=== PATIENT | male | born 1955 | race Caucasian/White ===

== ENCOUNTER 2016-07-15 07:23 | Inpatient (IN) | payer OTHER ==
[~2016-07-15] VITALS: Ht 182.9 cm; Wt 70.2 kg
[~2016-07-15 07:23] MED LIST: ASPI-621 PO; ATOR20TA9 PO; AZIT250T PO; CEFD300C2 PO; FOLI-17 PO; GUAI600T22 PO; LISI5TAB7 PO; METO-93 PO; MULT-750 PO; THIA100T6 PO
[2016-07-15] MEDS ORDERED: SODIUM CHLORIDE 0.9% 1,000 ML IV ONE (07:32)
[2016-07-15] MEDS ORDERED: DILTIAZEM 125 MG in DEXTROSE 5% 100 ML IV SCH (07:32)
[2016-07-15] MEDS ORDERED: DILTIAZEM 5 MG/ML, 5ML ONE (07:45)
[2016-07-15] MEDS ORDERED: DILTIAZEM 5 MG/ML, 5ML IV ONE (08:00)
[2016-07-15] MEDS ORDERED: SODIUM CHLORIDE FLUSH 10ML SYR IVF ONE (08:00)
[2016-07-15 08:08] LABS: HEMOGLOBIN 14.4 g/dL (13.7-18.0)
[2016-07-15 08:20] LABS: BLOOD UREA NITROGEN 11 mg/dL (7-18)
[2016-07-15] MEDS ORDERED: AMIODARONE 900 MG in DEXTROSE 5% 500 ML IV PRN (09:00)
[2016-07-15] MEDS ORDERED: AMIODARONE 150 MG in DEXTROSE 5% 100 ML IV ONE (09:00)
[2016-07-15] MEDS ORDERED: ONDANSETRON 2MG/ML, 2ML IVP PRN (09:30)
[2016-07-15] MEDS: FAMOTIDINE 20 MG TABLET PO SCH ×2 (09:30→20:55)
[2016-07-15] MEDS ORDERED: FILTER 0.22 MICRON IV ONE (09:30)
[2016-07-15] MEDS ORDERED: MORPHINE SULFATE 4 MG/ML, 1ML IVPush PRN (09:30)
[2016-07-15] MEDS: FOLIC ACID 1 MG TABLET PO SCH (09:30)
[2016-07-15] MEDS ORDERED: DOCUSATE 100 MG CAPSULE PO PRN (09:30)
[2016-07-15] MEDS: MULTIVITAMIN 1 TABLET PO SCH (09:30)
[2016-07-15] MEDS ORDERED: LORazepam 2 MG/ML, 1ML IVPush PRN (09:30)
[2016-07-15] MEDS: ASPIRIN 81 MG TABLET EC PO SCH (09:30)
[2016-07-15] MEDS: SODIUM CHLORIDE FLUSH 10ML SYR IVF SCH ×2 (09:30→20:53)
[2016-07-15] MEDS ORDERED: SODIUM CHLORIDE FLUSH 10ML SYR IVF PRN (09:30)
[2016-07-15] MEDS: THIAMINE 100MG TABLET PO SCH (09:30)
[2016-07-15 09:58] LABS: DAU SCREEN DISCLAIMER
[2016-07-15 10:08] LABS: IS PT STATUS REG ER OR PRE ER? YES
[2016-07-15] MEDS ORDERED: OMNIPAQUE 350 MG/ML, 100ML BOTTLE ONE (10:47)
[2016-07-15 12:09] VITALS: BP 149/99
[2016-07-15 14:34] VITALS: BP 147/99
[2016-07-15] MEDS: METOPROLOL SUCCINATE 50 MG TAB.ER.24H PO SCH (15:11)
[2016-07-15] MEDS: LISINOPRIL 5 MG TABLET PO SCH ×2 (15:11→20:54)
[2016-07-15] MEDS: HYDROcodone/APAP 5/325 TABLET PO PRN ×2 (15:13→20:59)
[2016-07-15 15:56] LABS: IS PT STATUS REG ER OR PRE ER? NO
[2016-07-15 16:38] VITALS: BP 130/83
[2016-07-15 20:50] VITALS: BP 122/87
[2016-07-15] MEDS: ATORVASTATIN 20 MG TABLET PO SCH (20:53)
[2016-07-15] MEDS: ENOXAPARIN 40 MG/0.4 ML SQ SCH (20:54)
[2016-07-15] MEDS ORDERED: FILTER 0.22 MICRON IV PRN (23:45)
[2016-07-16] MEDS ORDERED: AMIODARONE 900 MG in DEXTROSE 5% 482 ML IV PRN
[2016-07-16 02:35] VITALS: BP 113/83
[2016-07-16] MEDS: METOPROLOL SUCCINATE 50 MG TAB.ER.24H PO SCH (05:14)
[2016-07-16] MEDS: HYDROcodone/APAP 5/325 TABLET PO PRN ×4 (05:15→23:14)
[2016-07-16 05:31] LABS: HEMOGLOBIN 14.3 g/dL (13.7-18.0)
[2016-07-16 05:40] LABS: BLOOD UREA NITROGEN 13 mg/dL (7-18)
[2016-07-16 07:20] VITALS: BP 125/65
[2016-07-16] MEDS: LISINOPRIL 5 MG TABLET PO SCH ×2 (09:25→23:13)
[2016-07-16] MEDS: ASPIRIN 81 MG TABLET EC PO SCH (09:25)
[2016-07-16] MEDS: FOLIC ACID 1 MG TABLET PO SCH (09:26)
[2016-07-16] MEDS: FAMOTIDINE 20 MG TABLET PO SCH ×2 (09:26→23:13)
[2016-07-16] MEDS: THIAMINE 100MG TABLET PO SCH (09:26)
[2016-07-16] MEDS: MULTIVITAMIN 1 TABLET PO SCH (09:26)
[2016-07-16] MEDS: GUAIFENESIN/DM 200-20MG, 10ML UDC PO PRN (09:27)
[2016-07-16] MEDS: SODIUM CHLORIDE FLUSH 10ML SYR IVF SCH ×2 (09:33→23:13)
[2016-07-16] MEDS ORDERED: LORazepam 2 MG/ML, 1ML IV PRN ×5 (11:00)
[2016-07-16] MEDS ORDERED: LORazepam 1MG TABLET PO PRN ×4 (11:00)
[2016-07-16] MEDS ORDERED: LORazepam 0.5MG TABLET PO PRN (11:00)
[2016-07-16 12:50] VITALS: BP 116/79
[2016-07-16] MEDS: CEFTRIAXONE PMX 1GM/50ML 50 ML IV SCH ×2 (13:17→23:12)
[2016-07-16] MEDS: AMIODARONE 200 MG TABLET PO SCH ×2 (13:18→23:13)
[2016-07-16] MEDS: DOXYCYCLINE 100 MG in DEXTROSE 5% 250 ML IV SCH (13:49)
[2016-07-16 20:00] VITALS: BP 109/64
[2016-07-16] MEDS: ATORVASTATIN 20 MG TABLET PO SCH (23:13)
[2016-07-16] MEDS: ENOXAPARIN 40 MG/0.4 ML SQ SCH (23:14)
[2016-07-17] MEDS: DOXYCYCLINE 100 MG in DEXTROSE 5% 250 ML IV SCH ×2 (00:07→11:08)
[2016-07-17 02:18] VITALS: BP 119/75
[2016-07-17] MEDS: METOPROLOL SUCCINATE 50 MG TAB.ER.24H PO SCH (05:15)
[2016-07-17] MEDS: ASPIRIN 81 MG TABLET EC PO SCH (05:15)
[2016-07-17 06:31] LABS: BLOOD UREA NITROGEN 16 mg/dL (7-18)
[2016-07-17 07:59] VITALS: BP 124/72
[2016-07-17] MEDS: SODIUM CHLORIDE FLUSH 10ML SYR IVF SCH ×2 (09:26→22:53)
[2016-07-17] MEDS: GUAIFENESIN/DM 200-20MG, 10ML UDC PO PRN (09:26)
[2016-07-17] MEDS: AMIODARONE 200 MG TABLET PO SCH ×2 (09:27→22:53)
[2016-07-17] MEDS: FOLIC ACID 1 MG TABLET PO SCH (09:28)
[2016-07-17] MEDS: THIAMINE 100MG TABLET PO SCH (09:28)
[2016-07-17] MEDS: CEFTRIAXONE PMX 1GM/50ML 50 ML IV SCH ×2 (09:28→22:53)
[2016-07-17] MEDS: FAMOTIDINE 20 MG TABLET PO SCH ×2 (09:28→22:53)
[2016-07-17] MEDS: LISINOPRIL 5 MG TABLET PO SCH ×2 (09:28→22:53)
[2016-07-17] MEDS: MULTIVITAMIN 1 TABLET PO SCH (09:28)
[2016-07-17] MEDS ORDERED: MAGNESIUM SULFATE PMX 2GM/50ML 50 ML IV ONE (11:00)
[2016-07-17 14:30] VITALS: BP_SYST 90; BP_SYST 92; BP_DIAS 48; BP_DIAS 50
[2016-07-17] MEDS ORDERED: MORPHINE SULFATE 4 MG/ML, 1ML IVPush PRN (15:30)
[2016-07-17] MEDS ORDERED: HYDROcodone/APAP 5/325 TABLET PO PRN (15:30)
[2016-07-17 21:35] VITALS: BP 104/61
[2016-07-17] MEDS: ATORVASTATIN 20 MG TABLET PO SCH (22:53)
[2016-07-17] MEDS: ENOXAPARIN 40 MG/0.4 ML SQ SCH (22:53)
[2016-07-18] MEDS: DOXYCYCLINE 100 MG in DEXTROSE 5% 250 ML IV SCH ×2 (00:05→11:43)
[2016-07-18 03:42] VITALS: BP 107/63
[2016-07-18] MEDS: ASPIRIN 81 MG TABLET EC PO SCH (05:46)
[2016-07-18 05:50] LABS: BLOOD UREA NITROGEN 13 mg/dL (7-18)
[2016-07-18 06:57] VITALS: BP 95/58
[2016-07-18] MEDS ORDERED: AMIODARONE 200 MG TABLET PO SCH (09:00)
[2016-07-18 09:53] VITALS: BP 103/54
[2016-07-18] MEDS: MULTIVITAMIN 1 TABLET PO SCH (09:54)
[2016-07-18] MEDS: CEFTRIAXONE PMX 1GM/50ML 50 ML IV SCH (09:55)
[2016-07-18] MEDS: LISINOPRIL 5 MG TABLET PO SCH (09:55)
[2016-07-18] MEDS: FOLIC ACID 1 MG TABLET PO SCH (09:55)
[2016-07-18] MEDS: METOPROLOL SUCCINATE 50 MG TAB.ER.24H PO SCH (09:55)
[2016-07-18] MEDS: THIAMINE 100MG TABLET PO SCH (09:55)
[2016-07-18] MEDS: FAMOTIDINE 20 MG TABLET PO SCH (09:55)
[2016-07-18] MEDS: SODIUM CHLORIDE FLUSH 10ML SYR IVF SCH (09:56)
[2016-07-18] MEDS: GUAIFENESIN/DM 200-20MG, 10ML UDC PO PRN (11:43)
[2016-07-18 12:41] VITALS: BP 98/60
[2016-07-18] MEDS ORDERED: DOXY50CA42 PO (13:50)
[2016-07-18] MEDS ORDERED: CEFD300C2 PO (13:50)
[2016-07-18] MEDS ORDERED: METO-93 PO (13:52)
[2016-07-18] MEDS ORDERED: AMIO200T42 PO (13:52)
[2016-07-18] MEDS ORDERED: DOXYCYCLINE 50MG CAPSULE PO SCH (21:00)
[2016-07-18] MEDS ORDERED: CEFDINIR 300 MG CAPSULE PO SCH (21:00)
== END 2016-07-18 17:54 | disposition home or self-care (01) | DRG 291 ==
LOC: ED 08:26 → EDIP 09:03 → 5SO 11:55
PROVIDERS: ADMIT Hospitalist; ATTEND Hospitalist
DX: I11.0 Hypertensive heart disease with heart failure (principal); J18.9 Pneumonia, unspecified organism; D68.69 Other thrombophilia; J44.0 Chronic obstructive pulmonary disease with (acute) lower respiratory infection; I48.92 Unspecified atrial flutter; I50.41 Acute combined systolic (congestive) and diastolic (congestive) heart failure; I42.9 Cardiomyopathy, unspecified; I48.0 Paroxysmal atrial fibrillation; J44.9 Chronic obstructive pulmonary disease, unspecified; R29.6 Repeated falls; R09.02 Hypoxemia; R00.1 Bradycardia, unspecified; E83.42 Hypomagnesemia; I34.0 Nonrheumatic mitral (valve) insufficiency; F10.229 Alcohol dependence with intoxication, unspecified; I95.9 Hypotension, unspecified; F17.210 Nicotine dependence, cigarettes, uncomplicated; I10 Essential (primary) hypertension; I25.2 Old myocardial infarction; Z59.0 Homelessness; Z79.01 Long term (current) use of anticoagulants; Z79.82 Long term (current) use of aspirin; Z79.899 Other long term (current) drug therapy; Z91.19 Patient's noncompliance with other medical treatment and regimen
CPT/HCPCS: 36415; 70450; 71010; 71275; 80048; 80307; 82040; 82140; 83036; 83735; 83880; 84443; 84484; 85025; 85610; 85730; 93005; 93306; 96365; 96375; J0696; J1650; J2405; J7060; Q9967; J0282; J3475; J7030

== ENCOUNTER 2016-11-24 23:26 | Emergency (ER) | payer OTHER ==
[~2016-11-24 23:26] MED LIST changes: +AMIO200T42 PO; -CEFD300C2 PO; +CEFD300C37 PO; +DOXY50CA42 PO
== END 2016-11-25 00:16 | disposition left against medical advice (07) ==
LOC: ED 11-25 00:01
DX: Z53.21 Procedure and treatment not carried out due to patient leaving prior to being seen by health care provider (principal)

== ENCOUNTER 2016-12-30 06:37 | Inpatient (IN) | payer OTHER ==
[2016-12-30] VITALS (24 sets, daily range): BP systolic 99–145; BP diastolic 51–96
[~2016-12-30] VITALS: Ht 175.3 cm; Wt 63.4 kg
[~2016-12-30 06:37] MED LIST changes: -GUAI600T22 PO; +GUAI600T31 PO
[2016-12-30] MEDS ORDERED: SODIUM CHLORIDE 0.9% 1,000 ML IV ONE (06:39)
[2016-12-30] MEDS ORDERED: DOPAMINE/D5W PMX 250 ML ONE (06:46)
[2016-12-30] MEDS ORDERED: PIPERACILLIN/TAZO/PMX 3.375GM 50 ML IVPB ONE (07:00)
[2016-12-30] MEDS ORDERED: MORPHINE SULFATE 4 MG/ML, 1ML IVPush PRN (07:00)
[2016-12-30] MEDS ORDERED: PLEASE ENTER ALLERGIES MC SCH ×2 (07:00)
[2016-12-30] MEDS ORDERED: ONDANSETRON 2MG/ML, 2ML IVPush ONE (07:00)
[2016-12-30] MEDS ORDERED: SODIUM CHLORIDE 0.9% 1,000ML IVBOLUS ONE (07:00)
[2016-12-30] MEDS ORDERED: DOPAMINE/D5W PMX 250 ML IV SCH (07:01)
[2016-12-30 07:17] LABS: WHITE BLOOD COUNT 12.3 x10^3/uL (3.4-10)
[2016-12-30 07:18] LABS: HEMATOCRIT 20.1 % (39.2-51.8); HEMOGLOBIN 6.2 g/dL (13.7-18.0)
[2016-12-30 07:26] LABS: ASPARTATE AMINO TRANSFERASE 28 U/L (15-37); BLOOD UREA NITROGEN 28 mg/dL (7-18)
[2016-12-30] MEDS ORDERED: PHYTONADIONE 10 MG/ML, 1ML IM ONE (08:00)
[2016-12-30] MEDS ORDERED: PHYTONADIONE 10 MG/ML, 1ML ONE (08:07)
[2016-12-30] MEDS ORDERED: PIPERACILLIN/TAZO/PMX 3.375GM 50 ML ONE (08:32)
[2016-12-30] MEDS ORDERED: DOPAMINE/D5W PMX 250 ML IV PRN (09:30)
[2016-12-30] MEDS ORDERED: POLYETHYLENE GLYCOL 17 GM PACKET PO PRN (09:30)
[2016-12-30] MEDS ORDERED: ACETAMINOPHEN 325 MG TABLET PO PRN ×2 (09:30→21:00)
[2016-12-30 09:54] LABS: IS PT STATUS REG ER OR PRE ER? YES
[2016-12-30] MEDS ORDERED: PIPERACILLIN/TAZO/PMX 3.375GM 50 ML IV SCH (10:00)
[2016-12-30] MEDS: OXYcodone IR 5MG TABLET PO PRN ×2 (11:30→17:42)
[2016-12-30] MEDS ORDERED: ALBUTEROL/IPRATROPIUM 2.5MG/0.5MG, 3 ML NPPB PRN (14:00)
[2016-12-30 15:20] LABS: IS PT STATUS REG ER OR PRE ER? NO
[2016-12-30] MEDS: NICOTINE 14MG/24 HR PATCH.TD24 TD SCH (17:46)
[2016-12-30] MEDS: ONDANSETRON 2MG/ML, 2ML IVPush PRN (19:08)
[2016-12-30] MEDS ORDERED: DOCUSATE 100 MG CAPSULE PO PRN (21:00)
[2016-12-30] MEDS ORDERED: BISACODYL 10 MG SUPP PR PRN (21:00)
[2016-12-30] MEDS ORDERED: PROMETHAZINE 12.5 MG SUPP PR PRN (21:00)
[2016-12-30] MEDS ORDERED: LORazepam 2 MG/ML, 1ML IV PRN ×4 (21:00)
[2016-12-30] MEDS ORDERED: DIAZEPAM 5 MG/ML, 2ML IV PRN (21:00)
[2016-12-30] MEDS ORDERED: LORazepam 0.5MG TABLET PO PRN (21:00)
[2016-12-30] MEDS ORDERED: LORazepam 1MG TABLET PO PRN ×4 (21:00)
[2016-12-30] MEDS ORDERED: FOLIC ACID 5 MG/ML IM ONE ×2 (21:00→21:30)
[2016-12-30] MEDS ORDERED: THIAMINE 200 MG in DEXTROSE 5% 50 ML IVPB ONE (21:00)
[2016-12-30] MEDS ORDERED: DIPHENHYDRAMINE 50 MG CAPSULE PO PRN (21:00)
[2016-12-30] MEDS ORDERED: CHLORDIAZEPOXIDE 25 MG CAPSULE PO PRN (21:00)
[2016-12-30] MEDS ORDERED: CHLORDIAZEPOXIDE 10 MG CAPSULE PO PRN (21:00)
[2016-12-30] MEDS: MORPHINE SULFATE 4 MG/ML, 1ML IVPush PRN (21:10)
[2016-12-30] MEDS: LORazepam 2 MG/ML, 1ML IV PRN (21:11)
[2016-12-30] MEDS: D5%-0.45% NACL 1,000 ML IV SCH (21:12)
[2016-12-30] MEDS: BACLOFEN 10 MG TABLET PO SCH (22:26)
[2016-12-30] MEDS: FAMOTIDINE 20 MG/2 ML IVPush SCH (22:27)
[2016-12-30] MEDS: MAGNESIUM CHLORIDE 64 MG TABLET.DR PO SCH (22:31)
[2016-12-31 00:15] VITALS: BP 97/65
[2016-12-31 00:28] VITALS: BP 97/51
[2016-12-31] MEDS: MORPHINE SULFATE 4 MG/ML, 1ML IVPush PRN (00:33)
[2016-12-31] MEDS: LORazepam 2 MG/ML, 1ML IV PRN ×3 (00:34→07:25)
[2016-12-31 01:00] VITALS: BP 94/50
[2016-12-31 02:33] VITALS: BP 91/75
[2016-12-31 03:03] LABS: HEMATOCRIT 27.7 % (39.2-51.8); HEMOGLOBIN 8.9 g/dL (13.7-18.0); WHITE BLOOD COUNT 17.3 x10^3/uL (3.4-10)
[2016-12-31 03:11] LABS: ASPARTATE AMINO TRANSFERASE 51 U/L (15-37); BLOOD UREA NITROGEN 31 mg/dL (7-18)
[2016-12-31 03:17] LABS: DIFF TOTAL CELLS COUNTED 100 CELL DIFF
[2016-12-31 03:19] LABS: VERIFY COUNTS? YES
[2016-12-31 03:20] LABS: ANISOCYTOSIS 1+
[2016-12-31] MEDS: D5%-0.45% NACL 1,000 ML IV SCH ×3 (03:47→21:16)
[2016-12-31 06:40] VITALS: BP 90/51
[2016-12-31] MEDS ORDERED: SODIUM CHLORIDE 0.9% 1,000ML IV ONE (08:30)
[2016-12-31] MEDS: MULTIVITAMINS/MINERALS TABLET PO SCH (10:19)
[2016-12-31] MEDS: LEVOTHYROXINE 100 MCG INJ IVPush SCH (10:19)
[2016-12-31] MEDS: SENNA/DOCUSATE TABLET PO SCH (10:19)
[2016-12-31] MEDS: BACLOFEN 10 MG TABLET PO SCH ×2 (10:19→21:15)
[2016-12-31] MEDS: NICOTINE 14MG/24 HR PATCH.TD24 TD SCH (10:20)
[2016-12-31] MEDS: MAGNESIUM CHLORIDE 64 MG TABLET.DR PO SCH ×3 (10:20→21:15)
[2016-12-31 11:40] LABS: HEMATOCRIT 24.4 % (39.2-51.8); HEMOGLOBIN 8.2 g/dL (13.7-18.0)
[2016-12-31 18:40] LABS: HEMATOCRIT 20.9 % (39.2-51.8)
[2016-12-31] MEDS: FAMOTIDINE 20 MG/2 ML IVPush SCH (21:15)
[2016-12-31 23:44] LABS: HEMOGLOBIN 5.5 g/dL (13.7-18.0)
[2016-12-31 23:45] LABS: HEMATOCRIT 17.1 % (39.2-51.8)
[2017-01-01] VITALS (8 sets, daily range): BP systolic 97–105; BP diastolic 48–55
[2017-01-01] MEDS: D5%-0.45% NACL 1,000 ML IV SCH ×2 (01:38→11:41)
[2017-01-01] MEDS: MORPHINE SULFATE 4 MG/ML, 1ML IVPush PRN (01:38)
[2017-01-01 05:43] LABS: HEMOGLOBIN 7.6 g/dL (13.7-18.0); WHITE BLOOD COUNT 10.2 x10^3/uL (3.4-10)
[2017-01-01 05:52] LABS: BLOOD UREA NITROGEN 23 mg/dL (7-18)
[2017-01-01 05:57] LABS: ASPARTATE AMINO TRANSFERASE 47 U/L (15-37)
[2017-01-01] MEDS: BACLOFEN 10 MG TABLET PO SCH (09:00)
[2017-01-01] MEDS ORDERED: ZIPRASIDONE 20 MG INJ IM PRN (09:00)
[2017-01-01] MEDS: MAGNESIUM CHLORIDE 64 MG TABLET.DR PO SCH (09:00)
[2017-01-01] MEDS: MULTIVITAMINS/MINERALS TABLET PO SCH (09:00)
[2017-01-01] MEDS: SENNA/DOCUSATE TABLET PO SCH (09:00)
[2017-01-01] MEDS: LEVOTHYROXINE 100 MCG INJ IVPush SCH (09:27)
[2017-01-01 11:48] LABS: HEMATOCRIT 23.6 % (39.2-51.8); HEMOGLOBIN 7.9 g/dL (13.7-18.0)
[2017-01-01] MEDS: NICOTINE 14MG/24 HR PATCH.TD24 TD SCH (13:48)
[2017-01-01] MEDS ORDERED: PHYTONADIONE 10 MG/ML, 1ML SQ SCH (14:30)
[2017-01-01] MEDS: OXYcodone IR 5MG TABLET PO PRN ×2 (16:12→22:04)
[2017-01-01 17:44] LABS: HEMATOCRIT 25.1 % (39.2-51.8); HEMOGLOBIN 8.5 g/dL (13.7-18.0)
[2017-01-01] MEDS ORDERED: D5%-0.45% NACL 1,000 ML IV SCH (21:00)
[2017-01-01] MEDS: FAMOTIDINE 20 MG/2 ML IVPush SCH (21:25)
[2017-01-01] MEDS: TEMAZEPAM 15 MG CAPSULE PO PRN (22:04)
[2017-01-01 23:34] LABS: HEMATOCRIT 26.1 % (39.2-51.8); HEMOGLOBIN 8.9 g/dL (13.7-18.0)
[2017-01-02] MEDS: MORPHINE SULFATE 4 MG/ML, 1ML IVPush PRN (00:41)
[2017-01-02 04:00] VITALS: BP 120/70
[2017-01-02] MEDS: OXYcodone IR 5MG TABLET PO PRN ×2 (04:24→09:16)
[2017-01-02 05:09] LABS: BLOOD UREA NITROGEN 19 mg/dL (7-18)
[2017-01-02] MEDS ORDERED: FUROSEMIDE 20 MG/2 ML IV ONE (05:41)
[2017-01-02 06:00] LABS: HEMATOCRIT 30.1 % (39.2-51.8); HEMOGLOBIN 10.2 g/dL (13.7-18.0); WHITE BLOOD COUNT 11.7 x10^3/uL (3.4-10)
[2017-01-02 06:01] LABS: DIFF TOTAL CELLS COUNTED 100 CELL DIFF
[2017-01-02 06:04] LABS: VERIFY COUNTS? YES
[2017-01-02 06:05] LABS: ANISOCYTOSIS 1+
[2017-01-02 06:06] LABS: LARGE PLATELETS 1+; POLYCHROMASIA 1+
[2017-01-02] MEDS ORDERED: PHARMACOKINETIC MONITORING MC PRN (07:30)
[2017-01-02] MEDS ORDERED: VANCOMYCIN PER PHARMACY MC PRN (07:30)
[2017-01-02] MEDS: AMPICILLIN/SULBACTAM 3 GM in SODIUM CHLORIDE 0.9% 100 ML IV SCH ×4 (07:55→21:04)
[2017-01-02] MEDS: NICOTINE 14MG/24 HR PATCH.TD24 TD SCH (09:57)
[2017-01-02] MEDS: VANCOMYCIN 1,600 MG in SODIUM CHLORIDE 0.9% 250 ML IV SCH (09:58)
[2017-01-02] MEDS: LEVOTHYROXINE 100 MCG INJ IVPush SCH (09:59)
[2017-01-02 13:00] VITALS: BP 130/73
[2017-01-02 18:47] VITALS: BP 114/69
[2017-01-03] MEDS: OXYcodone IR 5MG TABLET PO PRN ×4 (00:13→20:01)
[2017-01-03 00:55] VITALS: BP 117/75
[2017-01-03] MEDS: VANCOMYCIN 1,600 MG in SODIUM CHLORIDE 0.9% 250 ML IV SCH ×2 (02:27→20:01)
[2017-01-03] MEDS: AMPICILLIN/SULBACTAM 3 GM in SODIUM CHLORIDE 0.9% 100 ML IV SCH ×4 (04:03→23:12)
[2017-01-03 05:24] LABS: HEMATOCRIT 26.1 % (39.2-51.8); HEMOGLOBIN 8.9 g/dL (13.7-18.0); WHITE BLOOD COUNT 8.2 x10^3/uL (3.4-10)
[2017-01-03] MEDS: LEVOTHYROXINE 75 MCG TABLET PO SCH (05:49)
[2017-01-03 08:00] VITALS: BP 137/74
[2017-01-03] MEDS: NICOTINE 14MG/24 HR PATCH.TD24 TD SCH (09:08)
[2017-01-03 15:36] VITALS: BP 136/84
[2017-01-03 20:29] VITALS: BP 152/72
[2017-01-04 01:34] VITALS: BP 141/68
[2017-01-04] MEDS: LEVOTHYROXINE 75 MCG TABLET PO SCH (05:01)
[2017-01-04] MEDS: AMPICILLIN/SULBACTAM 3 GM in SODIUM CHLORIDE 0.9% 100 ML IV SCH ×2 (05:01→09:38)
[2017-01-04 09:00] VITALS: BP 151/81
[2017-01-04] MEDS: NICOTINE 14MG/24 HR PATCH.TD24 TD SCH (09:33)
[2017-01-04] MEDS: OXYcodone IR 5MG TABLET PO PRN ×2 (09:38→22:37)
[2017-01-04] MEDS: VANCOMYCIN 1,600 MG in SODIUM CHLORIDE 0.9% 250 ML IV SCH (13:56)
[2017-01-04 15:17] VITALS: BP_SYST 138; BP_SYST 152; BP_DIAS 90; BP_DIAS 96
[2017-01-04] MEDS: METOPROLOL TARTRATE 25 MG TABLET PO SCH (16:37)
[2017-01-04] MEDS: DOXYCYCLINE 100 MG in DEXTROSE 5% 250 ML IV SCH (16:37)
[2017-01-04 18:42] VITALS: BP 154/68
[2017-01-04] MEDS ORDERED: ALBUTEROL/IPRATROPIUM 2.5MG/0.5MG, 3 ML ONE (18:42)
[2017-01-04] MEDS: ALBUTEROL/IPRATROPIUM 2.5MG/0.5MG, 3 ML NPPB PRN (23:11)
[2017-01-05] VITALS: BP 144/70
[2017-01-05] MEDS: DOXYCYCLINE 100 MG in DEXTROSE 5% 250 ML IV SCH ×2 (04:26→16:50)
[2017-01-05] MEDS: METOPROLOL TARTRATE 25 MG TABLET PO SCH ×2 (05:22→16:51)
[2017-01-05] MEDS: LEVOTHYROXINE 75 MCG TABLET PO SCH (05:22)
[2017-01-05] MEDS: ALBUTEROL/IPRATROPIUM 2.5MG/0.5MG, 3 ML NPPB PRN ×3 (05:27→11:35)
[2017-01-05 05:35] LABS: HEMATOCRIT 26.7 % (39.2-51.8); HEMOGLOBIN 9.1 g/dL (13.7-18.0); WHITE BLOOD COUNT 7.6 x10^3/uL (3.4-10)
[2017-01-05 08:45] VITALS: BP 140/83
[2017-01-05] MEDS: NICOTINE 14MG/24 HR PATCH.TD24 TD SCH (09:30)
[2017-01-05] MEDS: OXYcodone IR 5MG TABLET PO PRN ×2 (11:21→22:37)
[2017-01-05] MEDS ORDERED: ALBUTEROL/IPRATROPIUM 2.5MG/0.5MG, 3 ML NPPB PRN (12:00)
[2017-01-05] MEDS: ALBUTEROL/IPRATROPIUM 2.5MG/0.5MG, 3 ML NPPB SCH ×3 (13:35→20:40)
[2017-01-05 14:00] VITALS: BP 136/71
[2017-01-05 20:16] VITALS: BP 155/90
[2017-01-06 03:35] VITALS: BP 141/91
[2017-01-06 05:10] VITALS: BP 144/92
[2017-01-06] MEDS: DOXYCYCLINE 100 MG in DEXTROSE 5% 250 ML IV SCH ×2 (05:11→17:00)
[2017-01-06] MEDS: LEVOTHYROXINE 75 MCG TABLET PO SCH (05:12)
[2017-01-06] MEDS: METOPROLOL TARTRATE 25 MG TABLET PO SCH ×2 (05:16→17:59)
[2017-01-06 05:52] LABS: HEMATOCRIT 32.4 % (39.2-51.8); HEMOGLOBIN 10.9 g/dL (13.7-18.0); WHITE BLOOD COUNT 8.7 x10^3/uL (3.4-10)
[2017-01-06 05:53] LABS: BLOOD UREA NITROGEN 15 mg/dL (7-18)
[2017-01-06 05:56] LABS: ASPARTATE AMINO TRANSFERASE 47 U/L (15-37)
[2017-01-06] MEDS: ALBUTEROL/IPRATROPIUM 2.5MG/0.5MG, 3 ML NPPB SCH ×4 (07:05→20:00)
[2017-01-06] MEDS: NICOTINE 14MG/24 HR PATCH.TD24 TD SCH (08:59)
[2017-01-06] MEDS: OXYcodone IR 5MG TABLET PO PRN ×2 (09:02→13:14)
[2017-01-06 12:58] VITALS: BP 146/95
[2017-01-06] MEDS: ONDANSETRON 2MG/ML, 2ML IVPush PRN (16:52)
[2017-01-06 19:08] VITALS: BP 132/79
[2017-01-07 01:31] VITALS: BP 121/78
[2017-01-07 05:21] VITALS: BP 135/86
[2017-01-07] MEDS: METOPROLOL TARTRATE 25 MG TABLET PO SCH ×2 (05:22→17:20)
[2017-01-07] MEDS: LEVOTHYROXINE 75 MCG TABLET PO SCH (05:22)
[2017-01-07] MEDS: DOXYCYCLINE 100 MG in DEXTROSE 5% 250 ML IV SCH ×2 (05:23→16:20)
[2017-01-07 06:09] LABS: HEMATOCRIT 30.4 % (39.2-51.8); HEMOGLOBIN 10.2 g/dL (13.7-18.0); WHITE BLOOD COUNT 7.1 x10^3/uL (3.4-10)
[2017-01-07 06:13] LABS: BLOOD UREA NITROGEN 13 mg/dL (7-18)
[2017-01-07] MEDS: ALBUTEROL/IPRATROPIUM 2.5MG/0.5MG, 3 ML NPPB SCH ×4 (07:10→19:19)
[2017-01-07 08:45] VITALS: BP 134/75
[2017-01-07] MEDS: NICOTINE 14MG/24 HR PATCH.TD24 TD SCH (10:14)
[2017-01-07 15:20] VITALS: BP 126/70
[2017-01-07 20:20] VITALS: BP 120/70
[2017-01-08 01:30] VITALS: BP 126/69
[2017-01-08] MEDS: DOXYCYCLINE 100 MG in DEXTROSE 5% 250 ML IV SCH ×2 (04:38→16:51)
[2017-01-08 05:31] LABS: HEMATOCRIT 33.8 % (39.2-51.8); HEMOGLOBIN 11.2 g/dL (13.7-18.0); WHITE BLOOD COUNT 7.5 x10^3/uL (3.4-10)
[2017-01-08 05:50] LABS: ASPARTATE AMINO TRANSFERASE 31 U/L (15-37); BLOOD UREA NITROGEN 16 mg/dL (7-18)
[2017-01-08] MEDS: LEVOTHYROXINE 75 MCG TABLET PO SCH (06:20)
[2017-01-08] MEDS: METOPROLOL TARTRATE 25 MG TABLET PO SCH ×2 (06:20→16:51)
[2017-01-08] MEDS: ALBUTEROL/IPRATROPIUM 2.5MG/0.5MG, 3 ML NPPB SCH ×4 (06:52→20:00)
[2017-01-08 07:20] VITALS: BP 118/65
[2017-01-08] MEDS: NICOTINE 14MG/24 HR PATCH.TD24 TD SCH (09:38)
[2017-01-08 13:35] VITALS: BP 129/72
[2017-01-08] MEDS: OXYcodone IR 5MG TABLET PO PRN (20:08)
[2017-01-08 21:37] VITALS: BP 135/57
[2017-01-09 02:22] VITALS: BP 129/76
[2017-01-09] MEDS: DOXYCYCLINE 100 MG in DEXTROSE 5% 250 ML IV SCH ×2 (03:10→16:30)
[2017-01-09] MEDS: LEVOTHYROXINE 75 MCG TABLET PO SCH (04:59)
[2017-01-09] MEDS: METOPROLOL TARTRATE 25 MG TABLET PO SCH ×2 (04:59→17:57)
[2017-01-09 06:02] LABS: HEMATOCRIT 30.5 % (39.2-51.8); HEMOGLOBIN 10.2 g/dL (13.7-18.0); WHITE BLOOD COUNT 7.9 x10^3/uL (3.4-10)
[2017-01-09 06:26] LABS: BLOOD UREA NITROGEN 17 mg/dL (7-18)
[2017-01-09] MEDS: ALBUTEROL/IPRATROPIUM 2.5MG/0.5MG, 3 ML NPPB SCH ×4 (06:50→20:55)
[2017-01-09 07:51] VITALS: BP 130/70
[2017-01-09] MEDS: NICOTINE 14MG/24 HR PATCH.TD24 TD SCH (08:01)
[2017-01-09 12:50] VITALS: BP 127/81
[2017-01-09 20:26] VITALS: BP 102/30
[2017-01-10 03:23] VITALS: BP 132/86
[2017-01-10] MEDS: DOXYCYCLINE 100 MG in DEXTROSE 5% 250 ML IV SCH ×2 (04:23→16:30)
[2017-01-10] MEDS: OXYcodone IR 5MG TABLET PO PRN (04:30)
[2017-01-10] MEDS: LEVOTHYROXINE 75 MCG TABLET PO SCH (04:30)
[2017-01-10] MEDS: METOPROLOL TARTRATE 25 MG TABLET PO SCH ×2 (04:30→20:05)
[2017-01-10 06:04] LABS: HEMATOCRIT 31.2 % (39.2-51.8); HEMOGLOBIN 10.4 g/dL (13.7-18.0)
[2017-01-10 06:21] LABS: ASPARTATE AMINO TRANSFERASE 30 U/L (15-37); BLOOD UREA NITROGEN 18 mg/dL (7-18)
[2017-01-10] MEDS: ALBUTEROL/IPRATROPIUM 2.5MG/0.5MG, 3 ML NPPB SCH ×4 (07:00→19:47)
[2017-01-10 07:06] VITALS: BP 142/90
[2017-01-10] MEDS: NICOTINE 14MG/24 HR PATCH.TD24 TD SCH (10:10)
[2017-01-10 15:51] VITALS: BP 139/69
[2017-01-10 18:45] VITALS: BP 136/85
[2017-01-11 00:27] VITALS: BP 124/70
[2017-01-11] MEDS: OXYcodone IR 5MG TABLET PO PRN ×4 (02:50→20:23)
[2017-01-11] MEDS: METOPROLOL TARTRATE 25 MG TABLET PO SCH ×2 (05:20→16:53)
[2017-01-11] MEDS: LEVOTHYROXINE 75 MCG TABLET PO SCH (05:21)
[2017-01-11] MEDS: DOXYCYCLINE 100 MG in DEXTROSE 5% 250 ML IV SCH ×2 (05:21→16:53)
[2017-01-11 07:50] VITALS: BP 128/71
[2017-01-11] MEDS: ALBUTEROL/IPRATROPIUM 2.5MG/0.5MG, 3 ML NPPB SCH ×4 (08:11→19:33)
[2017-01-11] MEDS: NICOTINE 14MG/24 HR PATCH.TD24 TD SCH (08:44)
[2017-01-11 13:25] VITALS: BP 132/78
[2017-01-11 19:04] VITALS: BP 120/74
[2017-01-12 02:50] VITALS: BP 139/86
[2017-01-12] MEDS: METOPROLOL TARTRATE 25 MG TABLET PO SCH ×2 (05:36→19:09)
[2017-01-12] MEDS: LEVOTHYROXINE 75 MCG TABLET PO SCH (05:37)
[2017-01-12] MEDS: DOXYCYCLINE 100 MG in DEXTROSE 5% 250 ML IV SCH (05:37)
[2017-01-12 05:50] LABS: BLOOD UREA NITROGEN 17 mg/dL (7-18)
[2017-01-12 06:02] LABS: HEMATOCRIT 37.9 % (39.2-51.8); HEMOGLOBIN 12.2 g/dL (13.7-18.0); WHITE BLOOD COUNT 8.1 x10^3/uL (3.4-10)
[2017-01-12 07:10] VITALS: BP 141/86
[2017-01-12] MEDS: ALBUTEROL/IPRATROPIUM 2.5MG/0.5MG, 3 ML NPPB SCH ×3 (09:00→20:08)
[2017-01-12] MEDS: NICOTINE 14MG/24 HR PATCH.TD24 TD SCH (09:20)
[2017-01-12] MEDS: OXYcodone IR 5MG TABLET PO PRN ×2 (09:37→21:05)
[2017-01-12 13:04] VITALS: BP 131/82
[2017-01-12 20:24] VITALS: BP 126/80
[2017-01-13] MEDS: OXYcodone IR 5MG TABLET PO PRN ×3 (01:10→21:49)
[2017-01-13 02:00] VITALS: BP 129/89
[2017-01-13] MEDS: LEVOTHYROXINE 75 MCG TABLET PO SCH (05:53)
[2017-01-13] MEDS: METOPROLOL TARTRATE 25 MG TABLET PO SCH ×2 (05:54→17:33)
[2017-01-13 06:55] VITALS: BP 126/85
[2017-01-13] MEDS: ALBUTEROL/IPRATROPIUM 2.5MG/0.5MG, 3 ML NPPB SCH ×3 (06:57→19:10)
[2017-01-13] MEDS: NICOTINE 14MG/24 HR PATCH.TD24 TD SCH (09:34)
[2017-01-13 13:30] VITALS: BP 147/85
[2017-01-13 19:35] VITALS: BP 108/62
[2017-01-14 03:01] VITALS: BP 124/82
[2017-01-14] MEDS: LEVOTHYROXINE 75 MCG TABLET PO SCH (05:27)
[2017-01-14] MEDS: METOPROLOL TARTRATE 25 MG TABLET PO SCH ×2 (05:27→18:29)
[2017-01-14] MEDS: ALBUTEROL/IPRATROPIUM 2.5MG/0.5MG, 3 ML NPPB SCH ×3 (07:21→20:00)
[2017-01-14 07:53] VITALS: BP 139/88
[2017-01-14] MEDS: NICOTINE 14MG/24 HR PATCH.TD24 TD SCH (09:30)
[2017-01-14] MEDS: OXYcodone IR 5MG TABLET PO PRN ×2 (10:55→21:40)
[2017-01-14 14:30] VITALS: BP 147/77
[2017-01-14 19:33] VITALS: BP 141/73
[2017-01-14] MEDS: TEMAZEPAM 15 MG CAPSULE PO PRN (21:40)
[2017-01-15] MEDS: NICOTINE 14MG/24 HR PATCH.TD24 TD SCH (03:08)
[2017-01-15 03:53] VITALS: BP 138/77
[2017-01-15 05:37] LABS: HEMATOCRIT 31.6 % (39.2-51.8); HEMOGLOBIN 10.5 g/dL (13.7-18.0); WHITE BLOOD COUNT 5.8 x10^3/uL (3.4-10)
[2017-01-15 05:55] LABS: BLOOD UREA NITROGEN 17 mg/dL (7-18)
[2017-01-15] MEDS: LEVOTHYROXINE 75 MCG TABLET PO SCH (06:10)
[2017-01-15] MEDS: METOPROLOL TARTRATE 25 MG TABLET PO SCH ×2 (06:10→17:14)
[2017-01-15] MEDS: ALBUTEROL/IPRATROPIUM 2.5MG/0.5MG, 3 ML NPPB SCH ×3 (06:43→19:37)
[2017-01-15 08:05] VITALS: BP 140/81
[2017-01-15 14:54] VITALS: BP 149/78
[2017-01-15] MEDS: OXYcodone IR 5MG TABLET PO PRN (19:47)
[2017-01-15 19:48] VITALS: BP 159/84
[2017-01-16 02:39] VITALS: BP 155/80
[2017-01-16] MEDS: LEVOTHYROXINE 75 MCG TABLET PO SCH (05:46)
[2017-01-16] MEDS: METOPROLOL TARTRATE 25 MG TABLET PO SCH ×2 (05:46→18:15)
[2017-01-16 07:32] VITALS: BP 155/88
[2017-01-16] MEDS: NICOTINE 14MG/24 HR PATCH.TD24 TD SCH (08:35)
[2017-01-16] MEDS: ALBUTEROL/IPRATROPIUM 2.5MG/0.5MG, 3 ML NPPB SCH ×3 (09:47→21:00)
[2017-01-16 14:06] VITALS: BP 142/93
[2017-01-16 19:51] VITALS: BP 135/85
[2017-01-17 01:22] VITALS: BP 145/82
[2017-01-17] MEDS: LEVOTHYROXINE 75 MCG TABLET PO SCH (06:08)
[2017-01-17] MEDS: METOPROLOL TARTRATE 25 MG TABLET PO SCH ×2 (06:09→17:30)
[2017-01-17 07:16] VITALS: BP 139/82
[2017-01-17] MEDS: NICOTINE 14MG/24 HR PATCH.TD24 TD SCH (09:02)
[2017-01-17] MEDS: ALBUTEROL/IPRATROPIUM 2.5MG/0.5MG, 3 ML NPPB SCH (09:14)
[2017-01-17 12:47] VITALS: BP 140/86
[2017-01-17 18:23] VITALS: BP 155/85
[2017-01-17] MEDS: OXYcodone IR 5MG TABLET PO PRN (21:52)
[2017-01-18 01:50] VITALS: BP 158/96
[2017-01-18] MEDS: LEVOTHYROXINE 75 MCG TABLET PO SCH (05:10)
[2017-01-18] MEDS: METOPROLOL TARTRATE 25 MG TABLET PO SCH ×2 (05:10→18:00)
[2017-01-18 05:39] LABS: HEMATOCRIT 34.1 % (39.2-51.8); HEMOGLOBIN 11.2 g/dL (13.7-18.0); WHITE BLOOD COUNT 5.9 x10^3/uL (3.4-10)
[2017-01-18 06:52] VITALS: BP 154/92
[2017-01-18] MEDS: NICOTINE 14MG/24 HR PATCH.TD24 TD SCH (09:06)
[2017-01-18 14:39] VITALS: BP 152/89
[2017-01-18 20:28] VITALS: BP 113/75
[2017-01-19 03:41] VITALS: BP 140/65
[2017-01-19] MEDS: LEVOTHYROXINE 75 MCG TABLET PO SCH (05:07)
[2017-01-19] MEDS: METOPROLOL TARTRATE 25 MG TABLET PO SCH ×2 (05:07→18:30)
[2017-01-19 07:02] VITALS: BP 134/70
[2017-01-19] MEDS: NICOTINE 14MG/24 HR PATCH.TD24 TD SCH (10:36)
[2017-01-19 14:09] VITALS: BP 137/74
[2017-01-19 20:43] VITALS: BP 152/91
[2017-01-19] MEDS: ALUMINUM/MAG/SIMETHICONE 30 ML UDC PO PRN (23:08)
[2017-01-20 02:40] VITALS: BP 151/88
[2017-01-20] MEDS: METOPROLOL TARTRATE 25 MG TABLET PO SCH ×2 (04:38→17:20)
[2017-01-20] MEDS: LEVOTHYROXINE 75 MCG TABLET PO SCH (04:39)
[2017-01-20 04:57] LABS: HEMOGLOBIN 11.6 g/dL (13.7-18.0); WHITE BLOOD COUNT 5.6 x10^3/uL (3.4-10)
[2017-01-20 05:08] LABS: BLOOD UREA NITROGEN 25 mg/dL (7-18)
[2017-01-20 05:19] LABS: ASPARTATE AMINO TRANSFERASE 42 U/L (15-37)
[2017-01-20 06:42] VITALS: BP 137/75
[2017-01-20] MEDS: NICOTINE 14MG/24 HR PATCH.TD24 TD SCH (08:45)
[2017-01-20 12:48] VITALS: BP 169/85
[2017-01-20 19:32] VITALS: BP 132/76
[2017-01-21] MEDS: ALUMINUM/MAG/SIMETHICONE 30 ML UDC PO PRN ×2 (01:02→05:11)
[2017-01-21 01:11] VITALS: BP 148/90
[2017-01-21] MEDS: LEVOTHYROXINE 75 MCG TABLET PO SCH (05:11)
[2017-01-21] MEDS: METOPROLOL TARTRATE 25 MG TABLET PO SCH ×2 (05:11→16:59)
[2017-01-21 05:56] LABS: HEMATOCRIT 34.8 % (39.2-51.8); HEMOGLOBIN 11.7 g/dL (13.7-18.0); WHITE BLOOD COUNT 5.2 x10^3/uL (3.4-10)
[2017-01-21 06:02] LABS: BLOOD UREA NITROGEN 23 mg/dL (7-18)
[2017-01-21 06:03] LABS: ASPARTATE AMINO TRANSFERASE 48 U/L (15-37)
[2017-01-21 07:15] VITALS: BP 138/80
[2017-01-21] MEDS: NICOTINE 14MG/24 HR PATCH.TD24 TD SCH (09:28)
[2017-01-21 14:55] VITALS: BP 150/84
[2017-01-21 19:13] VITALS: BP 138/77
[2017-01-22] MEDS: ALUMINUM/MAG/SIMETHICONE 30 ML UDC PO PRN ×2 (02:32→20:26)
[2017-01-22 03:20] VITALS: BP 139/84
[2017-01-22 05:53] LABS: BLOOD UREA NITROGEN 22 mg/dL (7-18)
[2017-01-22 05:54] LABS: HEMATOCRIT 35.8 % (39.2-51.8); HEMOGLOBIN 11.9 g/dL (13.7-18.0); WHITE BLOOD COUNT 4.9 x10^3/uL (3.4-10)
[2017-01-22] MEDS: METOPROLOL TARTRATE 25 MG TABLET PO SCH ×2 (06:01→18:00)
[2017-01-22] MEDS: LEVOTHYROXINE 75 MCG TABLET PO SCH (06:01)
[2017-01-22 06:07] LABS: ASPARTATE AMINO TRANSFERASE 45 U/L (15-37)
[2017-01-22 07:19] VITALS: BP 150/88
[2017-01-22] MEDS: NICOTINE 14MG/24 HR PATCH.TD24 TD SCH (09:45)
[2017-01-22 14:29] VITALS: BP 121/74
[2017-01-22] MEDS: OXYcodone IR 5MG TABLET PO PRN (16:45)
[2017-01-22 19:03] VITALS: BP 134/80
== END 2017-01-23 01:06 | disposition left against medical advice (07) | DRG 314 ==
LOC: EDBD 06:37 → MERGE 06:37 → ED 07:31 → EDIP 08:31 → CCU 10:00 → 5SO 01-02 12:56 → 3NE 01-11 00:02
PROVIDERS: ADMIT Internal Medicine; ATTEND Internal Medicine
PROC: 30233N1 Transfusion of Nonautologous Red Blood Cells into Peripheral Vein, Percutaneous Approach (ICD-10-PCS; principal; 2016-12-30)
PROC: 30233L1 Transfusion of Nonautologous Fresh Plasma into Peripheral Vein, Percutaneous Approach (ICD-10-PCS; 2016-12-30)
PROC: 30233K1 Transfusion of Nonautologous Frozen Plasma into Peripheral Vein, Percutaneous Approach (ICD-10-PCS; 2016-12-30)
PROC: 0T9B70Z Drainage of Bladder with Drainage Device, Via Natural or Artificial Opening (ICD-10-PCS; 2016-12-30)
DX: R58 Hemorrhage, not elsewhere classified (principal); E43 Unspecified severe protein-calorie malnutrition; N17.0 Acute kidney failure with tubular necrosis; J69.0 Pneumonitis due to inhalation of food and vomit; T79.4XXA Traumatic shock, initial encounter; R57.1 Hypovolemic shock; T68.XXXA Hypothermia, initial encounter; D68.59 Other primary thrombophilia; I42.9 Cardiomyopathy, unspecified; R18.8 Other ascites; D62 Acute posthemorrhagic anemia; I48.92 Unspecified atrial flutter; S30.1XXA Contusion of abdominal wall, initial encounter; K72.90 Hepatic failure, unspecified without coma; J44.9 Chronic obstructive pulmonary disease, unspecified; I48.91 Unspecified atrial fibrillation; F10.20 Alcohol dependence, uncomplicated; F12.10 Cannabis abuse, uncomplicated; F15.10 Other stimulant abuse, uncomplicated; Z68.20 Body mass index [BMI] 20.0-20.9, adult; B95.62 Methicillin resistant Staphylococcus aureus infection as the cause of diseases classified elsewhere; D53.9 Nutritional anemia, unspecified; D75.89 Other specified diseases of blood and blood-forming organs; E03.9 Hypothyroidism, unspecified; E86.0 Dehydration; I11.0 Hypertensive heart disease with heart failure; I25.2 Old myocardial infarction; I50.9 Heart failure, unspecified; K40.90 Unilateral inguinal hernia, without obstruction or gangrene, not specified as recurrent; K59.00 Constipation, unspecified; Z59.0 Homelessness; Z79.01 Long term (current) use of anticoagulants; Z82.49 Family history of ischemic heart disease and other diseases of the circulatory system; Z87.891 Personal history of nicotine dependence; F10.10 Alcohol abuse, uncomplicated; F12.90 Cannabis use, unspecified, uncomplicated; T45.515A Adverse effect of anticoagulants, initial encounter
CPT/HCPCS: 12002; 36415; 71010; 74176; 76700; 80048; 80053; 81001; 82140; 82533; 82962; 83605; 83690; 83735; 84145; 84439; 84443; 84481; 84484; 85014; 85018; 85025; 85610; 85730; 86850; 86900; 86923; 87040; 87070; 87077; 87081; 87086; 87186; 87205; 93005; 94640; J0295; J1265; J2405; J2543; J3370; J3411; J3430; J7060; J7620; J1940; J2060; J7030; J7050; P9016; P9017; S0028

== ENCOUNTER 2017-04-24 21:54 | Inpatient (IN) | payer OTHER ==
[~2017-04-24] VITALS: Ht 182.9 cm; Wt 63.9 kg
[2017-04-24 23:43] LABS: BASOPHILS # (AUTO) 0.07 x10^3/uL (0-0.1); BASOPHILS % (AUTO) 1 % (0-1); EOSINOPHILS # (AUTO) 0.02 x10^3/uL (0-0.4); EOSINOPHILS % (AUTO) 0 % (1-7); LYMPHOCYTES # (AUTO) 1.99 x10^3/uL (1-3.4); LYMPHOCYTES % (AUTO) 20 % (22-44); MD NO; MEAN CORPUSCULAR HEMOGLOBIN 30.4 pg (27.5-34.5); MEAN CORPUSCULAR HGB CONC 33.8 g/dL (33.2-36.2); MEAN CORPUSCULAR VOLUME 89.9 fL (81-97); MEAN PLATELET VOLUME 7.8 fL (7.4-10.4); MONOCYTES # (AUTO) 0.57 x10^3/uL (0.2-0.8); MONOCYTES % (AUTO) 6 % (2-9); NEUTROPHILS # (AUTO) 7.23 x10^3/uL (1.8-6.8); NEUTROPHILS % (AUTO) 73 % (42-75); PLATELET COUNT 329 x10^3/uL (130-400); RED BLOOD COUNT 4.19 x10^6/uL (4.38-5.82); RED CELL DISTRIBUTION WIDTH 15.6 % (9.4-14.8)
[2017-04-24 23:53] LABS: ALBUMIN 3.3 g/dL (3.4-5.0); ANION GAP 11 mmol/L (5-15); CALCIUM 8.9 mg/dL (8.5-10.1); CHLORIDE 105 mmol/L (98-107); CREATININE 0.81 mg/dL (0.7-1.3)
[2017-04-24 23:57] LABS: TROPONIN I 0.068 ng/mL (0.000-0.045)
[2017-04-25] MEDS ORDERED: OMNIPAQUE 350 MG/ML, 100ML BOTTLE ONE (01:32)
[2017-04-25] MEDS ORDERED: HEPARIN 5,000 UNITS/ML, 1ML IV ONE (03:00)
[2017-04-25] MEDS ORDERED: HEPARIN 5,000 UNITS/ML, 1ML IV PRN (03:00)
[2017-04-25] MEDS ORDERED: HEPARIN 25,000 UNITS/500ML PMX 500 ML IV PRN (03:00)
[2017-04-25] MEDS ORDERED: AZITHROMYCIN 500 MG in SODIUM CHLORIDE 0.9% 250 ML IV SCH (08:30)
[2017-04-25] MEDS ORDERED: ONDANSETRON 2MG/ML, 2ML IVPush PRN (08:30)
[2017-04-25] MEDS ORDERED: CEFTRIAXONE PMX 1GM/50ML 50 ML IV SCH (08:30)
[2017-04-25] MEDS ORDERED: GUAIFENESIN/DM 200-20MG, 10ML UDC PO PRN (08:30)
[2017-04-25] MEDS ORDERED: ACETAMINOPHEN 325 MG TABLET PO PRN (08:30)
[2017-04-25] MEDS ORDERED: TEMAZEPAM 15 MG CAPSULE PO PRN (08:30)
[2017-04-25 08:38] VITALS: BP 102/63
[2017-04-25] MEDS: AMIODARONE 200 MG TABLET PO SCH (09:48)
[2017-04-25] MEDS: METOPROLOL SUCCINATE 25 MG TAB.ER.24H PO SCH (09:48)
[2017-04-25] MEDS: ENOXAPARIN 60 MG/0.6 ML SQ SCH ×2 (09:48→20:20)
[2017-04-25] MEDS: ASPIRIN 81 MG TABLET EC PO SCH (09:48)
[2017-04-25 09:49] VITALS: BP 110/67
[2017-04-25] MEDS: Enoxaparin 1 mg/kg protocol SQ SCH ×2 (09:49→20:30)
[2017-04-25 14:18] VITALS: BP 97/61
[2017-04-25 14:44] LABS: TROPONIN I 0.028 ng/mL (0.000-0.045)
[2017-04-25] MEDS ORDERED: FUROSEMIDE 40 MG/4 ML IV ONE (15:30)
[2017-04-25] MEDS ORDERED: DIGOXIN 0.25 MG/ML, 2ML IVPush ONE (15:30)
[2017-04-25] MEDS ORDERED: LORazepam 2 MG/ML, 1ML IVPush PRN (15:30)
[2017-04-25] MEDS ORDERED: POTASSIUM CHLORIDE 20 MEQ TAB.ER.PRT PO ONE (15:30)
[2017-04-25 15:36] LABS: INTERNATIONAL NORMALIZED RATIO 1.07 (0.93-1.1)
[2017-04-25] MEDS: BACLOFEN 10 MG TABLET PO SCH ×2 (15:43→20:19)
[2017-04-25] MEDS ORDERED: WARFARIN 7.5 MG TABLET PO-COUM SCH (18:00)
[2017-04-25] MEDS: DOXYCYCLINE 100 MG in DEXTROSE 5% 250 ML IV SCH (18:40)
[2017-04-25 19:07] LABS: AMPHETAMINE SCREEN, URINE Negative (Negative); BARBITURATE SCREEN, URINE Negative (Negative); BENZODIAZEPINE SCREEN, URINE Negative (Negative); CANNABINOID SCREEN, URINE Positive (Negative); COCAINE SCREEN, URINE Negative (Negative); METHADONE SCREEN, URINE Negative (Negative); OPIATE SCREEN, URINE Negative (Negative)
[2017-04-25] MEDS: ATORVASTATIN 20 MG TABLET PO SCH (20:19)
[2017-04-25] MEDS: GUAIFENESIN ER 600 MG TABLET PO SCH (20:20)
[2017-04-25 20:48] VITALS: BP 103/74
[2017-04-26 01:57] VITALS: BP 119/76
[2017-04-26] MEDS: DOXYCYCLINE 100 MG in DEXTROSE 5% 250 ML IV SCH ×2 (03:28→15:23)
[2017-04-26 05:22] LABS: INTERNATIONAL NORMALIZED RATIO 1.04 (0.93-1.1); PROTHROMBIN TIME 10.7 Seconds (9.6-11.5)
[2017-04-26 05:28] LABS: ANION GAP 4 mmol/L (5-15); CALCIUM 8.6 mg/dL (8.5-10.1); CHLORIDE 107 mmol/L (98-107); CHOLESTEROL, TOTAL 128 mg/dL (140-239); CREATININE 0.78 mg/dL (0.7-1.3); TRIGLYCERIDES 47 mg/dL (50-200); VLDL CHOLESTEROL 9 mg/dL (0-25)
[2017-04-26 05:30] LABS: HDL CHOL % 49 % (26-37); HDL CHOLESTEROL (DIRECT) 63 mg/dL (40-60); LDL CHOLESTEROL,CALCULATED 56 mg/dL (54-169); LDL/HDL RATIO 0.9 (0.5-3.0)
[2017-04-26 05:38] LABS: BASOPHILS # (AUTO) 0.03 x10^3/uL (0-0.1); BASOPHILS % (AUTO) 0 % (0-1); EOSINOPHILS # (AUTO) 0.15 x10^3/uL (0-0.4); EOSINOPHILS % (AUTO) 2 % (1-7); LYMPHOCYTES # (AUTO) 1.15 x10^3/uL (1-3.4); LYMPHOCYTES % (AUTO) 14 % (22-44); MD NO; MEAN CORPUSCULAR HEMOGLOBIN 30.3 pg (27.5-34.5); MEAN CORPUSCULAR HGB CONC 33.5 g/dL (33.2-36.2); MEAN CORPUSCULAR VOLUME 90.4 fL (81-97); MEAN PLATELET VOLUME 8.1 fL (7.4-10.4); MONOCYTES # (AUTO) 0.61 x10^3/uL (0.2-0.8); MONOCYTES % (AUTO) 8 % (2-9); NEUTROPHILS # (AUTO) 6.11 x10^3/uL (1.8-6.8); NEUTROPHILS % (AUTO) 76 % (42-75); PLATELET COUNT 213 x10^3/uL (130-400); RED BLOOD COUNT 4.33 x10^6/uL (4.38-5.82); RED CELL DISTRIBUTION WIDTH 15.1 % (9.4-14.8)
[2017-04-26] MEDS: ASPIRIN 81 MG TABLET EC PO SCH (06:16)
[2017-04-26] MEDS: METOPROLOL SUCCINATE 25 MG TAB.ER.24H PO SCH (06:17)
[2017-04-26] MEDS ORDERED: PNEUMOCOCCAL 23 VACCINE IM-VACC ONE (07:00)
[2017-04-26] MEDS ORDERED: FLU VACC QS2017-18 (36MOS+) UP/PF 0.5 ML IM-VACC ONE (07:00)
[2017-04-26 07:38] VITALS: BP 113/73
[2017-04-26] MEDS: CEFTRIAXONE 1,000 MG in DEXTROSE 5% 50 ML IV SCH (08:36)
[2017-04-26] MEDS: BACLOFEN 10 MG TABLET PO SCH ×3 (08:39→21:23)
[2017-04-26] MEDS: THIAMINE 100MG TABLET PO SCH (08:39)
[2017-04-26] MEDS: GUAIFENESIN ER 600 MG TABLET PO SCH ×2 (08:39→21:13)
[2017-04-26] MEDS: ENOXAPARIN 60 MG/0.6 ML SQ SCH ×2 (08:39→21:14)
[2017-04-26] MEDS: MULTIVITAMIN 1 TABLET PO SCH (08:39)
[2017-04-26] MEDS: FOLIC ACID 1 MG TABLET PO SCH (08:40)
[2017-04-26] MEDS: AMIODARONE 200 MG TABLET PO SCH (08:40)
[2017-04-26] MEDS: WARFARIN MODERAT DOSE PROTOCOL XX SCH (11:23)
[2017-04-26 14:27] VITALS: BP 99/65
[2017-04-26] MEDS: METOPROLOL TARTRATE 25 MG TABLET PO SCH (17:43)
[2017-04-26] MEDS ORDERED: WARFARIN 7.5 MG TABLET PO-COUM SCH (18:00)
[2017-04-26 20:53] VITALS: BP 134/64
[2017-04-26] MEDS: ATORVASTATIN 20 MG TABLET PO SCH (21:13)
[2017-04-27 00:40] VITALS: BP 100/72
[2017-04-27] MEDS: DOXYCYCLINE 100 MG in DEXTROSE 5% 250 ML IV SCH ×2 (04:00→17:30)
[2017-04-27 04:54] LABS: INTERNATIONAL NORMALIZED RATIO 1.2 (0.93-1.1); PROTHROMBIN TIME 12.3 Seconds (9.6-11.5)
[2017-04-27 04:56] LABS: BASOPHILS % (AUTO) 2 % (0-1); EOSINOPHILS # (AUTO) 0.25 x10^3/uL (0-0.4); EOSINOPHILS % (AUTO) 4 % (1-7); LYMPHOCYTES % (AUTO) 21 % (22-44); MD NO; MEAN CORPUSCULAR HEMOGLOBIN 30.3 pg (27.5-34.5); MEAN CORPUSCULAR HGB CONC 33.8 g/dL (33.2-36.2); MEAN CORPUSCULAR VOLUME 89.7 fL (81-97); MEAN PLATELET VOLUME 8.2 fL (7.4-10.4); MONOCYTES # (AUTO) 0.57 x10^3/uL (0.2-0.8); MONOCYTES % (AUTO) 9 % (2-9); NEUTROPHILS # (AUTO) 3.92 x10^3/uL (1.8-6.8); NEUTROPHILS % (AUTO) 64 % (42-75); PLATELET COUNT 195 x10^3/uL (130-400); RED BLOOD COUNT 4.46 x10^6/uL (4.38-5.82); RED CELL DISTRIBUTION WIDTH 15.2 % (9.4-14.8)
[2017-04-27 05:01] LABS: CHLORIDE 108 mmol/L (98-107)
[2017-04-27 05:08] LABS: ANION GAP 6 mmol/L (5-15); CALCIUM 9.2 mg/dL (8.5-10.1); CREATININE 0.76 mg/dL (0.7-1.3)
[2017-04-27] MEDS: METOPROLOL TARTRATE 25 MG TABLET PO SCH ×2 (06:27→17:31)
[2017-04-27] MEDS: ASPIRIN 81 MG TABLET EC PO SCH (06:27)
[2017-04-27 06:55] VITALS: BP 109/73
[2017-04-27] MEDS: MULTIVITAMIN 1 TABLET PO SCH (09:00)
[2017-04-27] MEDS: CEFTRIAXONE 1,000 MG in DEXTROSE 5% 50 ML IV SCH (09:00)
[2017-04-27] MEDS: THIAMINE 100MG TABLET PO SCH (09:00)
[2017-04-27] MEDS: AMIODARONE 200 MG TABLET PO SCH (09:00)
[2017-04-27] MEDS: FOLIC ACID 1 MG TABLET PO SCH (09:00)
[2017-04-27] MEDS: BACLOFEN 10 MG TABLET PO SCH ×3 (09:00→20:05)
[2017-04-27] MEDS: ENOXAPARIN 60 MG/0.6 ML SQ SCH ×2 (09:01→20:05)
[2017-04-27] MEDS: GUAIFENESIN ER 600 MG TABLET PO SCH ×2 (09:01→20:05)
[2017-04-27] MEDS: WARFARIN MODERAT DOSE PROTOCOL XX SCH (11:52)
[2017-04-27 14:10] VITALS: BP 103/67
[2017-04-27] MEDS ORDERED: WARFARIN 5 MG TABLET PO-COUM SCH (18:00)
[2017-04-27 20:05] VITALS: BP 111/72
[2017-04-27] MEDS: ATORVASTATIN 20 MG TABLET PO SCH (20:05)
[2017-04-28 00:41] VITALS: BP 107/73
[2017-04-28] MEDS: DOXYCYCLINE 100 MG in DEXTROSE 5% 250 ML IV SCH (04:57)
[2017-04-28] MEDS: METOPROLOL TARTRATE 25 MG TABLET PO SCH (04:58)
[2017-04-28] MEDS: ASPIRIN 81 MG TABLET EC PO SCH (04:58)
[2017-04-28 05:36] LABS: BASOPHILS # (AUTO) 0.02 x10^3/uL (0-0.1); BASOPHILS % (AUTO) 0 % (0-1); EOSINOPHILS # (AUTO) 0.22 x10^3/uL (0-0.4); EOSINOPHILS % (AUTO) 4 % (1-7); LYMPHOCYTES # (AUTO) 1.54 x10^3/uL (1-3.4); LYMPHOCYTES % (AUTO) 26 % (22-44); MD NO; MEAN CORPUSCULAR HEMOGLOBIN 30.5 pg (27.5-34.5); MEAN CORPUSCULAR HGB CONC 33.8 g/dL (33.2-36.2); MEAN CORPUSCULAR VOLUME 90.3 fL (81-97); MEAN PLATELET VOLUME 8.2 fL (7.4-10.4); MONOCYTES % (AUTO) 8 % (2-9); NEUTROPHILS # (AUTO) 3.67 x10^3/uL (1.8-6.8); NEUTROPHILS % (AUTO) 62 % (42-75); PLATELET COUNT 222 x10^3/uL (130-400); RED BLOOD COUNT 4.66 x10^6/uL (4.38-5.82); RED CELL DISTRIBUTION WIDTH 14.7 % (9.4-14.8)
[2017-04-28 05:41] LABS: INTERNATIONAL NORMALIZED RATIO 1.57 (0.93-1.1)
[2017-04-28 05:45] LABS: ANION GAP 6 mmol/L (5-15); CALCIUM 9.1 mg/dL (8.5-10.1); CHLORIDE 108 mmol/L (98-107)
[2017-04-28 05:46] LABS: CREATININE 0.81 mg/dL (0.7-1.3)
[2017-04-28 06:46] VITALS: BP 117/81
[2017-04-28] MEDS: CEFTRIAXONE 1,000 MG in DEXTROSE 5% 50 ML IV SCH (08:14)
[2017-04-28] MEDS: MULTIVITAMIN 1 TABLET PO SCH (08:15)
[2017-04-28] MEDS: BACLOFEN 10 MG TABLET PO SCH ×2 (08:15→16:36)
[2017-04-28] MEDS: GUAIFENESIN ER 600 MG TABLET PO SCH (08:15)
[2017-04-28] MEDS: AMIODARONE 200 MG TABLET PO SCH (08:15)
[2017-04-28] MEDS: ENOXAPARIN 60 MG/0.6 ML SQ SCH (08:15)
[2017-04-28] MEDS: THIAMINE 100MG TABLET PO SCH (08:16)
[2017-04-28] MEDS: FOLIC ACID 1 MG TABLET PO SCH (08:16)
[2017-04-28] MEDS: WARFARIN MODERAT DOSE PROTOCOL XX SCH (11:56)
[2017-04-28 14:00] VITALS: BP 107/77
[2017-04-28] MEDS ORDERED: WARF7.5T PO-COUM (14:38)
[2017-04-28] MEDS ORDERED: DOXY100T PO (14:38)
[2017-04-28] MEDS ORDERED: METO25TA35 PO (14:38)
[2017-04-28] MEDS ORDERED: CEFD300C37 PO (14:38)
[2017-04-28] MEDS ORDERED: ENOX60SY4 SQ (14:38)
[2017-04-28] MEDS ORDERED: WARFARIN 7.5 MG TABLET PO-COUM ONE (18:00)
== END 2017-04-28 17:15 | disposition home or self-care (01) | DRG 291 ==
LOC: ED 23:45 → EDIP 04-25 01:51 → 5SO 04-25 04:18
PROVIDERS: ADMIT Surgery; ATTEND Internal Medicine
DX: I11.0 Hypertensive heart disease with heart failure (principal); I26.99 Other pulmonary embolism without acute cor pulmonale; J15.9 Unspecified bacterial pneumonia; I82.432 Acute embolism and thrombosis of left popliteal vein; I42.9 Cardiomyopathy, unspecified; I48.92 Unspecified atrial flutter; Z79.01 Long term (current) use of anticoagulants; I48.91 Unspecified atrial fibrillation; J44.0 Chronic obstructive pulmonary disease with (acute) lower respiratory infection; I50.20 Unspecified systolic (congestive) heart failure; D64.9 Anemia, unspecified; F10.10 Alcohol abuse, uncomplicated; Z66 Do not resuscitate; F12.90 Cannabis use, unspecified, uncomplicated; F17.210 Nicotine dependence, cigarettes, uncomplicated; I25.2 Old myocardial infarction; Z86.711 Personal history of pulmonary embolism; Z86.718 Personal history of other venous thrombosis and embolism; Z91.19 Patient's noncompliance with other medical treatment and regimen
CPT/HCPCS: 36415; 71010; 71275; 80048; 80061; 80307; 82040; 83735; 84484; 85025; 85520; 85610; 87040; 87070; 87205; 90686; 90732; 93005; 93306; 93970; J0456; J0696; J1644; J1650; J7060; Q9967; G0479; J1160; J7050

== ENCOUNTER 2017-05-02 22:56 | Emergency (ER) | payer OTHER ==
[~2017-05-02] VITALS: Ht 182.9 cm; Wt 62.4 kg
[~2017-05-02 22:56] MED LIST changes: +DOXY100T PO; +ENOX60SY4 SQ; +METO25TA35 PO; +WARF7.5T PO-COUM
[2017-05-02 23:03] VITALS: BP 150/93
== END 2017-05-02 23:26 | disposition left against medical advice (07) ==
LOC: ED 23:20
DX: R07.9 Chest pain, unspecified (principal); Z53.21 Procedure and treatment not carried out due to patient leaving prior to being seen by health care provider
CPT/HCPCS: 93005; 99281

== ENCOUNTER 2017-07-31 11:50 | Inpatient (IN) | payer OTHER ==
[~2017-07-31] VITALS: Ht 182.9 cm; Wt 67.3 kg
[2017-07-31] MEDS ORDERED: DILTIAZEM 5 MG/ML, 5ML IVPush STA (12:03)
[2017-07-31] MEDS ORDERED: DILTIAZEM 5 MG/ML, 5ML ONE (12:13)
[2017-07-31] MEDS ORDERED: SODIUM CHLORIDE FLUSH 10ML SYR IVF ONE (12:30)
[2017-07-31 12:37] LABS: BASOPHILS # (AUTO) 0.02 x10^3/uL (0-0.1); BASOPHILS % (AUTO) 0 % (0-1); EOSINOPHILS # (AUTO) 0.01 x10^3/uL (0-0.4); EOSINOPHILS % (AUTO) 0 % (1-7); LYMPHOCYTES # (AUTO) 1.08 x10^3/uL (1-3.4); LYMPHOCYTES % (AUTO) 17 % (22-44); MD NO; MEAN CORPUSCULAR HEMOGLOBIN 31.1 pg (27.5-34.5); MEAN CORPUSCULAR HGB CONC 33.4 g/dL (33.2-36.2); MEAN CORPUSCULAR VOLUME 93.3 fL (81-97); MEAN PLATELET VOLUME 8.6 fL (7.4-10.4); MONOCYTES # (AUTO) 0.35 x10^3/uL (0.2-0.8); MONOCYTES % (AUTO) 6 % (2-9); NEUTROPHILS # (AUTO) 4.83 x10^3/uL (1.8-6.8); NEUTROPHILS % (AUTO) 77 % (42-75); PLATELET COUNT 201 x10^3/uL (130-400); RED BLOOD COUNT 3.98 x10^6/uL (4.38-5.82); RED CELL DISTRIBUTION WIDTH 16.5 % (9.4-14.8)
[2017-07-31 12:46] LABS: D-DIMER 1.02 ug/mlFEU (0.00-0.52); INTERNATIONAL NORMALIZED RATIO 1.12 (0.93-1.1); PROTHROMBIN TIME 11.5 Seconds (9.6-11.5)
[2017-07-31 12:47] LABS: ALANINE AMINOTRANSFERASE 70 U/L (12-78); ALBUMIN 2.6 g/dL (3.4-5.0); ANION GAP 8 mmol/L (5-15); CALCIUM 8.2 mg/dL (8.5-10.1); CHLORIDE 111 mmol/L (98-107); CREATININE 1.02 mg/dL (0.7-1.3)
[2017-07-31 12:52] LABS: ALKALINE PHOSPHATASE 138 U/L (45-117); BILIRUBIN,TOTAL 0.9 mg/dL (0.2-1.0); TOTAL PROTEIN 5.8 g/dL (6.4-8.2); TROPONIN I 0.066 ng/mL (0.000-0.045)
[2017-07-31] MEDS ORDERED: SODIUM CHLORIDE 0.9% 1,000ML IVBOLUS ONE (13:30)
[2017-07-31 13:51] LABS: MICROSCOPIC NOT IND
[2017-07-31 13:55] LABS: CULTURE INDICATED? NO
[2017-07-31] MEDS ORDERED: OMNIPAQUE 350 MG/ML, 100ML BOTTLE ONE (14:26)
[2017-07-31] MEDS ORDERED: DILTIAZEM 125 MG in DEXTROSE 5% 100 ML IV SCH (14:36)
[2017-07-31] MEDS ORDERED: DIGOXIN 0.25 MG/ML, 2ML IVPush ONE (15:00)
[2017-07-31] MEDS ORDERED: CEFTRIAXONE PMX 1GM/50ML 50 ML IV ONE (15:00)
[2017-07-31] MEDS ORDERED: CEFTRIAXONE PMX 1GM/50ML 50 ML ONE (15:13)
[2017-07-31] MEDS ORDERED: METOPROLOL 1 MG/ML, 5ML ONE (15:13)
[2017-07-31] MEDS ORDERED: METOPROLOL TARTRATE 25 MG TABLET ONE (15:21)
[2017-07-31] MEDS ORDERED: METOPROLOL TARTRATE 25 MG TABLET PO ONE (15:30)
[2017-07-31] MEDS ORDERED: LABETALOL 5MG/ML, 20ML IVPush PRN (15:30)
[2017-07-31] MEDS ORDERED: hydrALAzine 20 MG/ML, 1ML IVPush PRN (15:30)
[2017-07-31] MEDS ORDERED: POLYETHYLENE GLYCOL 17 GM PACKET PO PRN (15:30)
[2017-07-31] MEDS: METOPROLOL TARTRATE 25 MG TABLET PO SCH ×2 (15:40→22:44)
[2017-07-31 15:53] LABS: FREE T4 (FREE THYROXINE) 1.23 ng/dL (0.76-1.46); THYROID STIMULATING HORMONE 3.56 mIU/L (0.358-3.740)
[2017-07-31 16:25] VITALS: BP 132/94
[2017-07-31] MEDS: ENOXAPARIN 40 MG/0.4 ML SQ SCH (17:16)
[2017-07-31] MEDS: AZITHROMYCIN 500 MG in SODIUM CHLORIDE 0.9% 250 ML IV SCH (17:16)
[2017-07-31] MEDS ORDERED: ACETAMINOPHEN 325 MG TABLET PO PRN (18:30)
[2017-07-31] MEDS ORDERED: IBUPROFEN 200 MG TABLET PO PRN (18:30)
[2017-07-31] MEDS ORDERED: DILTIAZEM 5 MG/ML, 5ML IVPush ONE (19:00)
[2017-07-31 20:36] VITALS: BP 131/92
[2017-07-31 21:19] LABS: ANION GAP 9 mmol/L (5-15); CALCIUM 8.2 mg/dL (8.5-10.1); CHLORIDE 109 mmol/L (98-107); CREATININE 1.05 mg/dL (0.7-1.3)
[2017-07-31 21:25] LABS: TROPONIN I 0.077 ng/mL (0.000-0.045)
[2017-07-31 22:42] VITALS: BP 130/91
[2017-08-01 01:08] VITALS: BP 131/93
[2017-08-01 03:13] LABS: BASOPHILS # (AUTO) 0.05 x10^3/uL (0-0.1); BASOPHILS % (AUTO) 1 % (0-1); EOSINOPHILS # (AUTO) 0.07 x10^3/uL (0-0.4); EOSINOPHILS % (AUTO) 1 % (1-7); LYMPHOCYTES # (AUTO) 1.15 x10^3/uL (1-3.4); LYMPHOCYTES % (AUTO) 13 % (22-44); MD NO; MEAN CORPUSCULAR HEMOGLOBIN 30.8 pg (27.5-34.5); MEAN CORPUSCULAR HGB CONC 33.3 g/dL (33.2-36.2); MEAN CORPUSCULAR VOLUME 92.6 fL (81-97); MEAN PLATELET VOLUME 8.9 fL (7.4-10.4); MONOCYTES # (AUTO) 0.37 x10^3/uL (0.2-0.8); MONOCYTES % (AUTO) 4 % (2-9); NEUTROPHILS % (AUTO) 81 % (42-75); PLATELET COUNT 185 x10^3/uL (130-400); RED BLOOD COUNT 3.97 x10^6/uL (4.38-5.82); RED CELL DISTRIBUTION WIDTH 16.5 % (9.4-14.8)
[2017-08-01 04:09] LABS: ALANINE AMINOTRANSFERASE 58 U/L (12-78); ALBUMIN 2.4 g/dL (3.4-5.0); ANION GAP 8 mmol/L (5-15); CHLORIDE 109 mmol/L (98-107)
[2017-08-01 04:14] LABS: ALKALINE PHOSPHATASE 121 U/L (45-117); BILIRUBIN,TOTAL 0.6 mg/dL (0.2-1.0); CREATININE 0.94 mg/dL (0.7-1.3); TOTAL PROTEIN 5.4 g/dL (6.4-8.2)
[2017-08-01 05:03] VITALS: BP 109/81
[2017-08-01] MEDS: METOPROLOL TARTRATE 25 MG TABLET PO SCH ×4 (05:09→21:53)
[2017-08-01 06:50] VITALS: BP 125/87
[2017-08-01] MEDS: SENNA/DOCUSATE TABLET PO SCH (09:15)
[2017-08-01] MEDS: FUROSEMIDE 40 MG/4 ML IV SCH (10:34)
[2017-08-01 13:55] VITALS: BP 113/76
[2017-08-01] MEDS ORDERED: METOPROLOL TARTRATE 25 MG TABLET ONE (14:16)
[2017-08-01] MEDS ORDERED: METOPROLOL TARTRATE 25 MG TABLET PO SCH ×2 (14:30→14:45)
[2017-08-01] MEDS ORDERED: METOPROLOL TARTRATE 25 MG TABLET PO ONE (14:30)
[2017-08-01] MEDS ORDERED: CEFTRIAXONE PMX 2GM/50ML 50 ML IV SCH (15:00)
[2017-08-01] MEDS: CEFTRIAXONE 2 GM in DEXTROSE 5% 100 ML IVPB SCH (15:09)
[2017-08-01] MEDS: ENOXAPARIN 40 MG/0.4 ML SQ SCH (15:10)
[2017-08-01] MEDS: AZITHROMYCIN 500 MG in SODIUM CHLORIDE 0.9% 250 ML IV SCH (18:26)
[2017-08-01 20:13] VITALS: BP 110/81
[2017-08-01 21:51] VITALS: BP 120/84
[2017-08-02] VITALS (7 sets, daily range): BP systolic 107–138; BP diastolic 78–101
[2017-08-02] MEDS: METOPROLOL TARTRATE 25 MG TABLET PO SCH ×3 (04:58→12:37)
[2017-08-02] MEDS: SENNA/DOCUSATE TABLET PO SCH (08:35)
[2017-08-02] MEDS: FUROSEMIDE 40 MG/4 ML IV SCH (08:36)
[2017-08-02] MEDS: ENOXAPARIN 40 MG/0.4 ML SQ SCH (14:26)
[2017-08-02] MEDS: LISINOPRIL 5 MG TABLET PO SCH (14:27)
[2017-08-02] MEDS: CEFTRIAXONE 2 GM in DEXTROSE 5% 100 ML IVPB SCH (15:31)
[2017-08-02] MEDS: METOPROLOL TARTRATE 50 MG TABLET PO SCH (16:59)
[2017-08-02] MEDS: AZITHROMYCIN 500 MG in SODIUM CHLORIDE 0.9% 250 ML IV SCH (18:00)
[2017-08-03] MEDS ORDERED: METOPROLOL TARTRATE 50 MG TABLET PO SCH
[2017-08-03 01:30] VITALS: BP 123/86
[2017-08-03 05:45] VITALS: BP 127/86
[2017-08-03] MEDS: ASPIRIN 81 MG TABLET EC PO SCH (05:48)
[2017-08-03] MEDS: METOPROLOL TARTRATE 50 MG TABLET PO SCH ×2 (05:48→17:42)
[2017-08-03 06:48] VITALS: BP 117/85
[2017-08-03] MEDS: SENNA/DOCUSATE TABLET PO SCH (08:37)
[2017-08-03] MEDS: LISINOPRIL 5 MG TABLET PO SCH (08:40)
[2017-08-03] MEDS: FUROSEMIDE 40 MG/4 ML IV SCH (08:41)
[2017-08-03] MEDS ORDERED: LISINOPRIL 5 MG TABLET PO SCH (09:00)
[2017-08-03 12:20] VITALS: BP 116/87
[2017-08-03] MEDS: CEFTRIAXONE 2 GM in DEXTROSE 5% 100 ML IVPB SCH (13:40)
[2017-08-03] MEDS: ENOXAPARIN 40 MG/0.4 ML SQ SCH (15:52)
[2017-08-03] MEDS: AZITHROMYCIN 500 MG in SODIUM CHLORIDE 0.9% 250 ML IV SCH (17:42)
[2017-08-03 19:41] VITALS: BP 119/86
[2017-08-04 02:43] VITALS: BP 117/72
[2017-08-04] MEDS: ASPIRIN 81 MG TABLET EC PO SCH (05:46)
[2017-08-04] MEDS: METOPROLOL TARTRATE 50 MG TABLET PO SCH ×2 (05:46→17:49)
[2017-08-04 08:32] VITALS: BP 119/86
[2017-08-04] MEDS: LISINOPRIL 5 MG TABLET PO SCH (08:47)
[2017-08-04] MEDS: FUROSEMIDE 40 MG TABLET PO SCH (08:47)
[2017-08-04] MEDS: SENNA/DOCUSATE TABLET PO SCH (08:47)
[2017-08-04 13:42] VITALS: BP 118/80
[2017-08-04] MEDS: ENOXAPARIN 40 MG/0.4 ML SQ SCH (16:02)
[2017-08-04 20:24] VITALS: BP 115/66
[2017-08-05 04:01] VITALS: BP 110/81
[2017-08-05 06:30] VITALS: BP 121/64
[2017-08-05] MEDS ORDERED: MIDAZOLAM 1 MG/ML, 5ML ONE (07:48)
[2017-08-05] MEDS ORDERED: ISOPROTERENOL 0.2MG/ML, 5ML ONE (07:48)
[2017-08-05] MEDS ORDERED: FENTANYL PF 100 MCG/2ML ONE (07:48)
[2017-08-05] MEDS ORDERED: ADENOSINE 6 MG/2 ML ONE (07:48)
[2017-08-05] MEDS ORDERED: LIDOCAINE-MPF 2% ,5ML ONE (07:49)
[2017-08-05] MEDS ORDERED: ACETAMINOPHEN 325 MG TABLET PO PRN (09:30)
[2017-08-05] MEDS: FUROSEMIDE 40 MG TABLET PO SCH (10:06)
[2017-08-05] MEDS: ASPIRIN 81 MG TABLET EC PO SCH (10:07)
[2017-08-05] MEDS: LISINOPRIL 5 MG TABLET PO SCH (10:07)
[2017-08-05] MEDS: METOPROLOL TARTRATE 50 MG TABLET PO SCH ×2 (10:07→22:00)
[2017-08-05] MEDS: SENNA/DOCUSATE TABLET PO SCH (10:14)
[2017-08-05 14:00] VITALS: BP 112/68
[2017-08-05 20:04] VITALS: BP 92/54
[2017-08-05 21:48] VITALS: BP 96/61
[2017-08-05] MEDS: APIXABAN 5 MG TABLET PO SCH (22:03)
[2017-08-06 02:35] VITALS: BP 93/61
[2017-08-06] MEDS: ASPIRIN 81 MG TABLET EC PO SCH (05:26)
[2017-08-06 07:29] VITALS: BP 105/66
[2017-08-06] MEDS ORDERED: FUROSEMIDE 20 MG TABLET PO SCH (09:00)
[2017-08-06] MEDS: SENNA/DOCUSATE TABLET PO SCH (09:00)
[2017-08-06] MEDS: APIXABAN 5 MG TABLET PO SCH (09:15)
[2017-08-06] MEDS: LISINOPRIL 5 MG TABLET PO SCH (09:15)
[2017-08-06 12:27] VITALS: BP 100/61
[2017-08-06] MEDS ORDERED: LISI5TAB7 PO (14:10)
[2017-08-06] MEDS ORDERED: APIX5TAB PO (14:10)
[2017-08-06] MEDS ORDERED: ASPI-621 PO (14:10)
[2017-08-06] MEDS ORDERED: POTA10TA5 PO (14:10)
[2017-08-06] MEDS ORDERED: FURO20TA3 PO (14:10)
[2017-08-06] MEDS ORDERED: CARV3.1212 PO (14:10)
[2017-08-06] MEDS ORDERED: CARVEDILOL 3.125 MG TABLET PO SCH (18:00)
[2017-08-06] MEDS ORDERED: METOPROLOL TARTRATE 25 MG TABLET PO SCH (18:00)
[2017-08-07] MEDS ORDERED: POTASSIUM CHLORIDE 10 MEQ TABLET.ER PO SCH (08:00)
== END 2017-08-06 15:13 | disposition home or self-care (01) | DRG 273 ==
LOC: ED 12:11 → EDIP 15:12 → 5SO 16:16
PROVIDERS: ADMIT Hospitalist; ATTEND Hospitalist
PROC: 02583ZZ Destruction of Conduction Mechanism, Percutaneous Approach (ICD-10-PCS; principal; 2017-08-06)
PROC: 4A0234Z Measurement of Cardiac Electrical Activity, Percutaneous Approach (ICD-10-PCS; 2017-08-06)
PROC: 02K83ZZ Map Conduction Mechanism, Percutaneous Approach (ICD-10-PCS; 2017-08-06)
DX: I48.92 Unspecified atrial flutter (principal); I50.23 Acute on chronic systolic (congestive) heart failure; J18.9 Pneumonia, unspecified organism; D68.69 Other thrombophilia; I42.9 Cardiomyopathy, unspecified; J44.0 Chronic obstructive pulmonary disease with (acute) lower respiratory infection; I48.2 Chronic atrial fibrillation; F10.20 Alcohol dependence, uncomplicated; F17.210 Nicotine dependence, cigarettes, uncomplicated; I34.0 Nonrheumatic mitral (valve) insufficiency; S00.12XA Contusion of left eyelid and periocular area, initial encounter; Z66 Do not resuscitate; Z79.899 Other long term (current) drug therapy; Z86.711 Personal history of pulmonary embolism; Z86.718 Personal history of other venous thrombosis and embolism; Z91.14 Patient's other noncompliance with medication regimen; Z91.19 Patient's noncompliance with other medical treatment and regimen
CPT/HCPCS: 36415; 70450; 71045; 71275; 80048; 80053; 80162; 81003; 82565; 82962; 83605; 83735; 83880; 84145; 84439; 84443; 84484; 85025; 85379; 85610; 85730; 87040; 93005; 93306; 93613; 93621; 93653; 96374; 99156; 99157; C1731; C1732; C1894; J0153; J0456; J0696; J1650; J1940; J2250; J3010; J3490; Q9967; C1730; J7030; J7050

== ENCOUNTER 2018-06-10 02:06 | Inpatient (IN) | payer OTHER ==
[~2018-06-10] VITALS: Ht 182.9 cm; Wt 66.5 kg
[~2018-06-10 02:06] MED LIST changes: +APIX5TAB PO; -ASPI-621 PO; +ASPI81TA45 PO; +ATOR20TA37 PO; -ATOR20TA9 PO; +ATOR40TA78 PO; +CARV25TA12 PO; +CARV3.1212 PO; +DIGO125T PO; +FURO20TA3 PO; +GUAI200T3 PO; +MULT1TAB60 PO; +POTA10TA5 PO; -THIA100T6 PO; +THIA100T67 PO
--- NOTE | 2018-06-10 02:48 | NUR ---
pt in HOSPITAL GOWN, PT ON ALL MONITORS. EKG DONE. IV STARTED, LABS DRAWN FROM IV START. BILAT BEDRAILS UP. CALL LIGHT WITHIN REACH. WILL CONTINUE TO MONITOR.
[2018-06-10 02:52] LABS: BASOPHILS # (AUTO) 0.03 x10^3/uL (0-0.1); BASOPHILS % (AUTO) 1 % (0-1); EOSINOPHILS # (AUTO) 0.08 x10^3/uL (0-0.4); EOSINOPHILS % (AUTO) 2 % (1-7); LYMPHOCYTES # (AUTO) 1.16 x10^3/uL (1-3.4); LYMPHOCYTES % (AUTO) 22 % (22-44); MD NO; MEAN CORPUSCULAR HEMOGLOBIN 31.7 pg (27.5-34.5); MEAN CORPUSCULAR HGB CONC 33.1 g/dL (33.2-36.2); MEAN CORPUSCULAR VOLUME 95.8 fL (81-97); MEAN PLATELET VOLUME 8.9 fL (7.4-10.4); MONOCYTES # (AUTO) 0.37 x10^3/uL (0.2-0.8); MONOCYTES % (AUTO) 7 % (2-9); NEUTROPHILS % (AUTO) 69 % (42-75); PLATELET COUNT 191 x10^3/uL (130-400); RED BLOOD COUNT 4.34 x10^6/uL (4.38-5.82); RED CELL DISTRIBUTION WIDTH 16.9 % (9.4-14.8)
[2018-06-10] MEDS ORDERED: FUROSEMIDE 40 MG/4 ML ONE (02:52)
[2018-06-10] MEDS ORDERED: DILTIAZEM 5 MG/ML, 5ML ONE (02:53)
--- NOTE | 2018-06-10 02:57 | NUR ---
CXR DONE. PT MEDCIATED WITH ORDERED MEDS.
[2018-06-10] MEDS ORDERED: FUROSEMIDE 40 MG/4 ML IV ONE (03:00)
[2018-06-10] MEDS ORDERED: DILTIAZEM 5 MG/ML, 5ML IVPush ONE (03:00)
--- NOTE | 2018-06-10 03:02 | NUR ---
BILATERAL LEG SWELLING "I GOT MY MEDS STOLEN." HX OF CHF PER TRIAGE NOTE
[2018-06-10 03:05] LABS: ALBUMIN 3.4 g/dL (3.4-5.0); ANION GAP 4 mmol/L (5-15); CALCIUM 8.3 mg/dL (8.5-10.1); CHLORIDE 109 mmol/L (98-107); CREATININE 0.94 mg/dL (0.7-1.3)
--- NOTE | 2018-06-10 03:06 | NUR ---
PT STATED HIS MEDS WERE STOLEN BACK IN FEBRUARY, AND DOESN'T KNOW WHAT MEDS HE IS ON. PT STATED HE THINKS A BABY ASA AND A HEART MED. UNABLE TO DO MED REC AT THIS TIME.
[2018-06-10 03:08] LABS: TROPONIN I 0.074 ng/mL (0.000-0.045)
--- NOTE | 2018-06-10 04:19 | NUR ---
unable to confirm pt's home med rec d/t pt doesnt remember any meds name at all md was notified
--- NOTE | 2018-06-10 04:49 | NUR ---
GIVEN REPORT VSS UPDATED
[2018-06-10 05:26] VITALS: BP 142/84
[2018-06-10 05:30] VITALS: BP 142/89
[2018-06-10] MEDS ORDERED: DILTIAZEM 125 MG in SODIUM CHLORIDE 0.9% 100 ML IV PRN (07:30)
[2018-06-10 07:41] VITALS: BP 123/83
[2018-06-10] MEDS: DABIGATRAN 150 MG CAPSULE PO SCH ×2 (07:56→19:49)
[2018-06-10] MEDS: DILTIAZEM 125 MG in SODIUM CHLORIDE 0.9% 100 ML IV PRN ×2 (07:56→16:21)
[2018-06-10 10:09] LABS: MICROSCOPIC NOT IND
[2018-06-10 10:19] LABS: CULTURE INDICATED? NO
[2018-06-10] MEDS ORDERED: ALBUTEROL/IPRATROPIUM 2.5MG/0.5MG, 3 ML NPPB PRN (12:00)
[2018-06-10] MEDS: NICOTINE 7 MG/24 HR PATCH.TD24 TD SCH (13:30)
[2018-06-10] MEDS ORDERED: ENOXAPARIN 40 MG/0.4 ML SQ SCH (13:30)
[2018-06-10] MEDS ORDERED: hydrALAzine 20 MG/ML, 1ML IVPush PRN (13:30)
[2018-06-10] MEDS ORDERED: ONDANSETRON 2MG/ML, 2ML IVPush PRN (13:30)
[2018-06-10] MEDS ORDERED: ACETAMINOPHEN 325 MG TABLET PO PRN (13:30)
[2018-06-10] MEDS ORDERED: morphine SULFATE 10 MG/ML, 1ML IVPush PRN (13:30)
[2018-06-10 13:33] VITALS: BP 111/70
[2018-06-10 13:39] LABS: TROPONIN I 0.061 ng/mL (0.000-0.045)
[2018-06-10] MEDS: FUROSEMIDE 20 MG/2 ML IV SCH ×2 (13:43→19:48)
[2018-06-10 17:50] VITALS: BP 118/75
[2018-06-10] MEDS: CARVEDILOL 25 MG TABLET PO SCH (17:50)
[2018-06-10] MEDS: POTASSIUM CHLORIDE 20 MEQ TAB.ER.PRT PO SCH (17:50)
[2018-06-10 18:50] LABS: TROPONIN I 0.065 ng/mL (0.000-0.045)
[2018-06-10] MEDS: ATORVASTATIN 40 MG TABLET PO SCH (19:49)
[2018-06-10] MEDS: APIXABAN 5 MG TABLET PO SCH (19:49)
[2018-06-10 21:40] VITALS: BP_SYST 76; BP_SYST 84; BP_DIAS 45; BP_DIAS 56
[2018-06-10 22:00] LABS: AMPHETAMINE SCREEN, URINE Negative (Negative); BARBITURATE SCREEN, URINE Negative (Negative); BENZODIAZEPINE SCREEN, URINE Negative (Negative); CANNABINOID SCREEN, URINE Positive (Negative); COCAINE SCREEN, URINE Negative (Negative); METHADONE SCREEN, URINE Negative (Negative); OPIATE SCREEN, URINE Negative (Negative)
[2018-06-11 01:31] VITALS: BP 106/74
[2018-06-11 04:50] LABS: ALBUMIN 2.7 g/dL (3.4-5.0); ANION GAP 5 mmol/L (5-15); CHLORIDE 108 mmol/L (98-107)
[2018-06-11 04:55] LABS: ALANINE AMINOTRANSFERASE 81 U/L (12-78); ALKALINE PHOSPHATASE 139 U/L (45-117); BILIRUBIN,TOTAL 0.9 mg/dL (0.2-1.0); CALCIUM 7.8 mg/dL (8.5-10.1); CREATININE 1.03 mg/dL (0.7-1.3); TOTAL PROTEIN 5.5 g/dL (6.4-8.2)
[2018-06-11] MEDS: ASPIRIN 81 MG TABLET EC PO SCH (06:20)
[2018-06-11] MEDS: CARVEDILOL 25 MG TABLET PO SCH (06:22)
[2018-06-11] MEDS ORDERED: MAGNESIUM SULFATE PMX 2GM/50ML 50 ML IV ONE (07:00)
[2018-06-11 08:00] VITALS: BP 119/71
[2018-06-11] MEDS: POTASSIUM CHLORIDE 20 MEQ TAB.ER.PRT PO SCH ×2 (08:09→16:46)
[2018-06-11] MEDS: FUROSEMIDE 20 MG/2 ML IV SCH ×2 (08:09→16:46)
[2018-06-11] MEDS: APIXABAN 5 MG TABLET PO SCH ×2 (08:09→20:45)
[2018-06-11] MEDS: MULTIVITAMIN 1 TABLET PO SCH (08:09)
[2018-06-11] MEDS: DIGOXIN 0.125 MG TABLET PO SCH (08:09)
[2018-06-11] MEDS: THIAMINE 100MG TABLET PO SCH ×2 (08:09→20:45)
[2018-06-11] MEDS: LISINOPRIL 5 MG TABLET PO SCH (08:23)
[2018-06-11 13:29] VITALS: BP 122/69
[2018-06-11] MEDS: NICOTINE 7 MG/24 HR PATCH.TD24 TD SCH (13:30)
[2018-06-11] MEDS ORDERED: CARVEDILOL 6.25 MG TABLET ONE (15:04)
[2018-06-11] MEDS: CARVEDILOL 6.25 MG TABLET PO SCH (15:08)
[2018-06-11 16:45] VITALS: BP 122/86
[2018-06-11] MEDS ORDERED: CARVEDILOL 3.125 MG TABLET PO SCH (18:00)
[2018-06-11 19:06] VITALS: BP 113/75
[2018-06-11] MEDS: ATORVASTATIN 40 MG TABLET PO SCH (20:45)
[2018-06-12 00:49] VITALS: BP 127/89
[2018-06-12 05:26] LABS: CHLORIDE 107 mmol/L (98-107)
[2018-06-12 05:31] LABS: ANION GAP 5 mmol/L (5-15); CALCIUM 8.2 mg/dL (8.5-10.1); CREATININE 0.85 mg/dL (0.7-1.3)
[2018-06-12] MEDS: ASPIRIN 81 MG TABLET EC PO SCH (05:48)
[2018-06-12] MEDS: CARVEDILOL 6.25 MG TABLET PO SCH (05:49)
[2018-06-12 06:47] VITALS: BP 124/85
[2018-06-12] MEDS ORDERED: REGADENOSON 0.4 MG/5 ML SYRINGE ONE (08:05)
[2018-06-12] MEDS: FUROSEMIDE 20 MG/2 ML IV SCH ×2 (10:54→16:47)
[2018-06-12] MEDS: THIAMINE 100MG TABLET PO SCH ×2 (10:55→21:14)
[2018-06-12] MEDS: POTASSIUM CHLORIDE 20 MEQ TAB.ER.PRT PO SCH ×2 (10:55→16:47)
[2018-06-12] MEDS: DIGOXIN 0.125 MG TABLET PO SCH (10:55)
[2018-06-12] MEDS: APIXABAN 5 MG TABLET PO SCH ×2 (10:55→21:14)
[2018-06-12] MEDS: MULTIVITAMIN 1 TABLET PO SCH (10:55)
[2018-06-12] MEDS: LISINOPRIL 5 MG TABLET PO SCH (10:55)
[2018-06-12 12:52] VITALS: BP 120/82
[2018-06-12] MEDS ORDERED: CARVEDILOL 6.25 MG TABLET PO ONE (14:30)
[2018-06-12] MEDS: NICOTINE 7 MG/24 HR PATCH.TD24 TD SCH (14:38)
[2018-06-12 16:46] VITALS: BP 108/74
[2018-06-12] MEDS: CARVEDILOL 12.5 MG TABLET PO SCH (17:48)
[2018-06-12 19:14] VITALS: BP 98/58
[2018-06-12] MEDS: ATORVASTATIN 40 MG TABLET PO SCH (21:14)
[2018-06-13 01:42] VITALS: BP 127/85
[2018-06-13] MEDS: ASPIRIN 81 MG TABLET EC PO SCH (05:47)
[2018-06-13] MEDS: CARVEDILOL 12.5 MG TABLET PO SCH ×2 (05:47→16:54)
[2018-06-13 07:45] VITALS: BP 124/82
[2018-06-13 08:08] VITALS: BP 113/82
[2018-06-13] MEDS: FUROSEMIDE 20 MG/2 ML IV SCH ×2 (08:15→16:54)
[2018-06-13] MEDS: APIXABAN 5 MG TABLET PO SCH ×2 (08:15→21:44)
[2018-06-13] MEDS: LISINOPRIL 5 MG TABLET PO SCH (08:15)
[2018-06-13] MEDS: MULTIVITAMIN 1 TABLET PO SCH (08:15)
[2018-06-13] MEDS: POTASSIUM CHLORIDE 20 MEQ TAB.ER.PRT PO SCH ×2 (08:15→16:54)
[2018-06-13] MEDS: DIGOXIN 0.125 MG TABLET PO SCH (08:15)
[2018-06-13] MEDS: THIAMINE 100MG TABLET PO SCH ×2 (08:16→21:44)
[2018-06-13] MEDS: NICOTINE 7 MG/24 HR PATCH.TD24 TD SCH (13:30)
[2018-06-13 13:58] VITALS: BP 97/66
[2018-06-13 16:52] VITALS: BP 110/67
[2018-06-13 19:44] VITALS: BP 91/59
[2018-06-13] MEDS: ATORVASTATIN 40 MG TABLET PO SCH (21:44)
[2018-06-14] VITALS (7 sets, daily range): BP systolic 89–116; BP diastolic 60–82
[2018-06-14 04:52] LABS: ANION GAP 5 mmol/L (5-15); CHLORIDE 108 mmol/L (98-107)
[2018-06-14 04:53] LABS: CREATININE 0.97 mg/dL (0.7-1.3)
[2018-06-14 05:10] LABS: BASOPHILS # (AUTO) 0.03 x10^3/uL (0-0.1); BASOPHILS % (AUTO) 1 % (0-1); EOSINOPHILS # (AUTO) 0.16 x10^3/uL (0-0.4); EOSINOPHILS % (AUTO) 2 % (1-7); LYMPHOCYTES # (AUTO) 1.89 x10^3/uL (1-3.4); LYMPHOCYTES % (AUTO) 29 % (22-44); MD NO; MEAN CORPUSCULAR HEMOGLOBIN 31.3 pg (27.5-34.5); MEAN CORPUSCULAR VOLUME 94.6 fL (81-97); MONOCYTES # (AUTO) 0.67 x10^3/uL (0.2-0.8); MONOCYTES % (AUTO) 10 % (2-9); NEUTROPHILS # (AUTO) 3.82 x10^3/uL (1.8-6.8); NEUTROPHILS % (AUTO) 58 % (42-75); PLATELET COUNT 243 x10^3/uL (130-400); RED BLOOD COUNT 4.75 x10^6/uL (4.38-5.82); RED CELL DISTRIBUTION WIDTH 16.3 % (9.4-14.8)
[2018-06-14] MEDS: ASPIRIN 81 MG TABLET EC PO SCH (06:24)
[2018-06-14] MEDS: CARVEDILOL 12.5 MG TABLET PO SCH ×2 (06:24→18:00)
[2018-06-14] MEDS: DIGOXIN 0.125 MG TABLET PO SCH (09:15)
[2018-06-14] MEDS: THIAMINE 100MG TABLET PO SCH ×2 (09:15→20:17)
[2018-06-14] MEDS: APIXABAN 5 MG TABLET PO SCH ×2 (09:15→20:17)
[2018-06-14] MEDS: FUROSEMIDE 20 MG/2 ML IV SCH ×2 (09:15→17:08)
[2018-06-14] MEDS: MULTIVITAMIN 1 TABLET PO SCH (09:15)
[2018-06-14] MEDS: POTASSIUM CHLORIDE 20 MEQ TAB.ER.PRT PO SCH ×2 (09:15→17:09)
[2018-06-14] MEDS: LISINOPRIL 5 MG TABLET PO SCH (09:16)
[2018-06-14] MEDS ORDERED: DIGOXIN 0.125 MG TABLET PO ONE (13:00)
[2018-06-14] MEDS: NICOTINE 7 MG/24 HR PATCH.TD24 TD SCH (13:30)
[2018-06-14] MEDS: DILTIAZEM 30 MG TABLET PO SCH ×2 (17:11→23:00)
[2018-06-14] MEDS: MAGNESIUM OXIDE 400 MG TABLET PO SCH (20:17)
[2018-06-14] MEDS: ATORVASTATIN 40 MG TABLET PO SCH (20:17)
[2018-06-15 01:05] VITALS: BP 107/72
[2018-06-15 05:10] VITALS: BP 94/68
[2018-06-15] MEDS: DILTIAZEM 30 MG TABLET PO SCH ×2 (05:25→11:00)
[2018-06-15] MEDS: ASPIRIN 81 MG TABLET EC PO SCH (05:25)
[2018-06-15 06:30] VITALS: BP_SYST 88; BP_SYST 89; BP_DIAS 62; BP_DIAS 64
[2018-06-15] MEDS: FUROSEMIDE 20 MG/2 ML IV SCH (07:30)
[2018-06-15] MEDS: CARVEDILOL 12.5 MG TABLET PO SCH (08:00)
[2018-06-15 08:49] VITALS: BP 107/75
[2018-06-15] MEDS ORDERED: DIGOXIN 0.25 MG/ML, 2ML IVPush ONE (09:00)
[2018-06-15] MEDS: LISINOPRIL 5 MG TABLET PO SCH (09:00)
[2018-06-15] MEDS ORDERED: DIGOXIN 0.25 MG TABLET PO SCH (09:00)
[2018-06-15] MEDS: MAGNESIUM OXIDE 400 MG TABLET PO SCH (10:14)
[2018-06-15] MEDS: MULTIVITAMIN 1 TABLET PO SCH (10:15)
[2018-06-15] MEDS: APIXABAN 5 MG TABLET PO SCH (10:15)
[2018-06-15] MEDS: THIAMINE 100MG TABLET PO SCH (10:15)
[2018-06-15] MEDS: POTASSIUM CHLORIDE 20 MEQ TAB.ER.PRT PO SCH (10:15)
[2018-06-15] MEDS: NICOTINE 7 MG/24 HR PATCH.TD24 TD SCH (13:30)
[2018-06-15 13:47] VITALS: BP 112/73
[2018-06-15] MEDS ORDERED: NICO-485 TD (14:13)
[2018-06-15] MEDS ORDERED: POTA20TA6 PO (14:13)
[2018-06-15] MEDS ORDERED: DILT120C2 PO (14:13)
[2018-06-15] MEDS ORDERED: MAGN400T50 PO (14:13)
[2018-06-15] MEDS ORDERED: CARV3.122 PO (14:13)
[2018-06-15] MEDS ORDERED: DIGO125T PO (14:13)
[2018-06-15] MEDS ORDERED: FURO-92 PO (14:13)
[2018-06-15] MEDS ORDERED: FUROSEMIDE 20 MG/2 ML IV SCH (17:00)
== END 2018-06-15 17:21 | disposition home or self-care (01) | DRG 291 ==
LOC: ED 03:42 → EDIP 04:08 → 5SO 05:21
PROVIDERS: ADMIT Hospitalist; ATTEND Internal Medicine
DX: I11.0 Hypertensive heart disease with heart failure (principal); I50.31 Acute diastolic (congestive) heart failure; E44.0 Moderate protein-calorie malnutrition; D68.69 Other thrombophilia; Z68.1 Body mass index [BMI] 19.9 or less, adult; I47.2 Ventricular tachycardia; I48.2 Chronic atrial fibrillation; F17.200 Nicotine dependence, unspecified, uncomplicated; J44.9 Chronic obstructive pulmonary disease, unspecified; Z86.711 Personal history of pulmonary embolism; Z91.14 Patient's other noncompliance with medication regimen
CPT/HCPCS: 36415; 71045; 78452; 80048; 80053; 80162; 80307; 81003; 82040; 83735; 83880; 84100; 84484; 85025; 93005; 93017; 96374; 96375; 99291; G0378; J1650; J1940; J2785; A9502; C9898; J1160; J3475

== ENCOUNTER 2018-07-04 02:19 | Emergency (ER) | payer OTHER ==
[~2018-07-04] VITALS: Ht 182.9 cm; Wt 74.0 kg
[~2018-07-04 02:19] MED LIST changes: +CARV3.122 PO; +DILT120C2 PO; +FURO-92 PO; +MAGN400T50 PO; +NICO-485 TD; +POTA20TA6 PO
[2018-07-04] MEDS ORDERED: ALBUTEROL SULFATE 2.5 MG/3 ML NPPB ONE (02:30)
[2018-07-04] MEDS ORDERED: DILTIAZEM 5 MG/ML, 5ML IV ONE (03:00)
[2018-07-04] MEDS ORDERED: DILTIAZEM 5 MG/ML, 10ML ONE (03:02)
[2018-07-04] MEDS ORDERED: ALBUTEROL SULFATE 2.5 MG/3 ML ONE (03:07)
[2018-07-04 03:12] LABS: BASOPHILS # (AUTO) 0.01 x10^3/uL (0-0.1); BASOPHILS % (AUTO) 0 % (0-1); EOSINOPHILS # (AUTO) 0.11 x10^3/uL (0-0.4); EOSINOPHILS % (AUTO) 2 % (1-7); LYMPHOCYTES # (AUTO) 1.33 x10^3/uL (1-3.4); LYMPHOCYTES % (AUTO) 22 % (22-44); MD NO; MEAN CORPUSCULAR HEMOGLOBIN 31.9 pg (27.5-34.5); MEAN CORPUSCULAR HGB CONC 33.4 g/dL (33.2-36.2); MEAN CORPUSCULAR VOLUME 95.6 fL (81-97); MEAN PLATELET VOLUME 9.1 fL (7.4-10.4); MONOCYTES # (AUTO) 0.48 x10^3/uL (0.2-0.8); MONOCYTES % (AUTO) 8 % (2-9); NEUTROPHILS # (AUTO) 4.06 x10^3/uL (1.8-6.8); NEUTROPHILS % (AUTO) 68 % (42-75); PLATELET COUNT 188 x10^3/uL (130-400); RED BLOOD COUNT 3.91 x10^6/uL (4.38-5.82); RED CELL DISTRIBUTION WIDTH 15.6 % (9.4-14.8)
[2018-07-04 03:16] LABS: ALBUMIN 3.4 g/dL (3.4-5.0); ANION GAP 6 mmol/L (5-15); CALCIUM 8.3 mg/dL (8.5-10.1); CHLORIDE 113 mmol/L (98-107); CREATININE 0.85 mg/dL (0.7-1.3)
[2018-07-04 03:30] LABS: TROPONIN I 0.065 ng/mL (0.000-0.045)
--- NOTE | 2018-07-04 03:50 | NUR ---
HAVING DIFFICULTY GETTING IV ON PT. IV PLACEMENT HAS BEEN ATTEMPTED X5 WITHOUT SUCCESS. ANOTHER RN GOING TO TRY IV. PT RESTING CALMLY IN BED. PT HR AT THIS TIME 143- A-FIB c RVR. PT TO BE MEDICATED PER EMAR SOON IV PLACED. PT ON CARDIAC AND VITALS MONITORS. NO REPORT OF PAIN FROM PT.
--- NOTE | 2018-07-04 04:20 | NUR ---
PT MEDICATED PER EMAR. PT RESTING CALMLY IN BED. PT ASKED TO REST FOR A LITTLE. PT HAS HAD BREATHING TX. AND LABS HAVE BEEN DRAWN. WILL CONTINUE TO MONITIOR.
[2018-07-04 04:48] VITALS: BP 159/99
== END 2018-07-04 05:34 | disposition home or self-care (01) ==
LOC: ED 02:38
DX: I48.2 Chronic atrial fibrillation (principal); J44.1 Chronic obstructive pulmonary disease with (acute) exacerbation; F17.210 Nicotine dependence, cigarettes, uncomplicated; I25.2 Old myocardial infarction; I50.9 Heart failure, unspecified; I11.0 Hypertensive heart disease with heart failure
CPT/HCPCS: 36415; 71045; 80048; 82040; 83880; 84484; 85025; 93005; 94640; 96374; 99284; J7512; J7613

== ENCOUNTER 2018-08-15 03:22 | Inpatient (IN) | payer MEDICARE, OTHER ==
[~2018-08-15] VITALS: Ht 182.9 cm; Wt 52.8 kg
--- NOTE | 2018-08-15 03:50 | NUR ---
PT PRESENTED WITH C/O DIFFICULTY BREATHING, SOB AND DIZZINESS. NOTED PT'S SPO2-95% ON R/A AND HR- 140-150'S. MONITORS APPLIED, SIDERAILS UP X2, CALL LIGHT WITHIN REACH. PT STATED HE DRANK ALCOHOL AND HAD METH YESTERDAY EVENING. MEDICAL STUDENT AT PT'S BEDSIDE FOR EVAL, AWAITING ORDERS AT THIS TIME
[2018-08-15] MEDS ORDERED: DILTIAZEM 125 MG in SODIUM CHLORIDE 0.9% 100 ML IV SCH ×2 (04:08→05:12)
[2018-08-15] MEDS ORDERED: ASPIRIN 81 MG TABLET CHEW ONE (04:08)
[2018-08-15] MEDS ORDERED: FUROSEMIDE 40 MG/4 ML ONE (04:09)
[2018-08-15] MEDS ORDERED: DILTIAZEM 5 MG/ML, 10ML ONE (04:16)
--- NOTE | 2018-08-15 04:29 | NUR ---
IV SITE STARTED, PT MEDICATED PER MAR
[2018-08-15] MEDS ORDERED: FUROSEMIDE 40 MG/4 ML IV ONE (04:30)
[2018-08-15] MEDS ORDERED: DILTIAZEM 5 MG/ML, 5ML IV ONE (04:30)
[2018-08-15] MEDS ORDERED: SODIUM CHLORIDE FLUSH 10ML SYR IVF ONE (04:30)
[2018-08-15] MEDS ORDERED: ASPIRIN 81 MG TABLET CHEW PO ONE (04:30)
[2018-08-15 04:48] LABS: BASOPHILS # (AUTO) 0.03 x10^3/uL (0-0.1); BASOPHILS % (AUTO) 1 % (0-1); EOSINOPHILS # (AUTO) 0.03 x10^3/uL (0-0.4); EOSINOPHILS % (AUTO) 1 % (1-7); LYMPHOCYTES # (AUTO) 1.22 x10^3/uL (1-3.4); LYMPHOCYTES % (AUTO) 21 % (22-44); MD NO; MEAN CORPUSCULAR HEMOGLOBIN 31.7 pg (27.5-34.5); MEAN CORPUSCULAR VOLUME 95.9 fL (81-97); MEAN PLATELET VOLUME 8.8 fL (7.4-10.4); MONOCYTES # (AUTO) 0.55 x10^3/uL (0.2-0.8); MONOCYTES % (AUTO) 9 % (2-9); NEUTROPHILS # (AUTO) 4.15 x10^3/uL (1.8-6.8); NEUTROPHILS % (AUTO) 69 % (42-75); PLATELET COUNT 219 x10^3/uL (130-400); RED BLOOD COUNT 4.17 x10^6/uL (4.38-5.82)
--- NOTE | 2018-08-15 04:49 | NUR ---
PT RESTING CALMLY, MONITORS IN PLACE, IV FLUIDS INFUSING, SIDERAILS UP X2, CALL LIGHT WITHIN REACH. AWAITING LAB RESULTS
[2018-08-15 04:55] LABS: INTERNATIONAL NORMALIZED RATIO 1.01 (0.93-1.1); PROTHROMBIN TIME 10.6 Seconds (9.6-11.5)
[2018-08-15 04:59] LABS: ALBUMIN 2.9 g/dL (3.4-5.0); ANION GAP 8 mmol/L (5-15); CALCIUM 8.1 mg/dL (8.5-10.1); CHLORIDE 114 mmol/L (98-107)
[2018-08-15 05:01] LABS: ALANINE AMINOTRANSFERASE 43 U/L (12-78); CREATININE 0.97 mg/dL (0.7-1.3)
[2018-08-15 05:06] LABS: TROPONIN I 0.144 ng/mL (0.000-0.045)
[2018-08-15 05:15] LABS: ALKALINE PHOSPHATASE 125 U/L (45-117); BILIRUBIN,TOTAL 0.8 mg/dL (0.2-1.0); TOTAL PROTEIN 5.7 g/dL (6.4-8.2)
[2018-08-15] MEDS ORDERED: ALBUTEROL/IPRATROPIUM 2.5MG/0.5MG, 3 ML ONE (05:24)
[2018-08-15] MEDS ORDERED: ALBUTEROL/IPRATROPIUM 2.5MG/0.5MG, 3 ML NPPB ONE (05:30)
[2018-08-15] MEDS ORDERED: APIXABAN 5 MG TABLET PO ONE (05:30)
[2018-08-15] MEDS ORDERED: APIXABAN 5 MG TABLET ONE (05:41)
--- NOTE | 2018-08-15 05:45 | NUR ---
PT INCONTINENT OF BOWELS, PROVIDED PT WITH CLEAN UNDERPANTS AND PT COMPLETED SELF CARE
[2018-08-15] MEDS ORDERED: ASPIRIN 81 MG TABLET EC ONE (05:59)
[2018-08-15] MEDS ORDERED: CARVEDILOL 3.125 MG TABLET ONE (06:00)
[2018-08-15] MEDS ORDERED: LORazepam 1MG TABLET PO PRN (06:00)
[2018-08-15] MEDS ORDERED: Enoxaparin 1 mg/kg protocol SQ SCH (06:00)
[2018-08-15] MEDS ORDERED: NICOTINE 7 MG/24 HR PATCH.TD24 ONE (06:00)
[2018-08-15] MEDS ORDERED: LABETALOL 5 MG/ML SYRINGE IVPush PRN (06:00)
[2018-08-15] MEDS: ASPIRIN 81 MG TABLET EC PO SCH (06:03)
[2018-08-15] MEDS: CARVEDILOL 6.25 MG TABLET PO SCH ×2 (06:04→17:47)
[2018-08-15] MEDS: NICOTINE 7 MG/24 HR PATCH.TD24 TD SCH (06:04)
--- NOTE | 2018-08-15 06:10 | NUR ---
PT RESTING CALMLY, MONITORS IN PLACE, CALL LIGHT WITHIN REACH. AWAITING ROOM FOR ADMIT
--- NOTE | 2018-08-15 06:48 | NUR ---
received bedside report from JENNIFER Resendiz.
--- NOTE | 2018-08-15 06:52 | NUR ---
report given to lidya joyce
[2018-08-15 06:53] LABS: TROPONIN I 0.134 ng/mL (0.000-0.045)
--- NOTE | 2018-08-15 06:59 | NUR ---
PT RESTING ON GURNEY. NO ACUTE DISTRESS NOTED. VSS. NO NEEDS REQUESTED AT THIS TIME.
--- NOTE | 2018-08-15 08:04 | NUR ---
PT NOW ON HOSPITAL BED.
[2018-08-15] MEDS ORDERED: MAGNESIUM OXIDE 400 MG TABLET ONE (08:25)
[2018-08-15] MEDS ORDERED: THIAMINE 100MG TABLET ONE (08:25)
[2018-08-15] MEDS ORDERED: FUROSEMIDE 20 MG/2 ML ONE (08:25)
[2018-08-15] MEDS ORDERED: LISINOPRIL 5 MG TABLET ONE (08:26)
[2018-08-15] MEDS: THIAMINE 100MG TABLET PO SCH ×2 (08:28→20:59)
[2018-08-15] MEDS: LISINOPRIL 5 MG TABLET PO SCH (08:29)
[2018-08-15] MEDS: FUROSEMIDE 20 MG/2 ML IV SCH ×2 (08:29→17:47)
[2018-08-15] MEDS: MAGNESIUM OXIDE 400 MG TABLET PO SCH ×2 (08:29→20:59)
--- NOTE | 2018-08-15 08:48 | NUR ---
DIET TRAHarley COMPLETED. PT RESTING ON HOSP BED. MED REQUEST TO PHARMACY. NO NEEDS REQUESTED AT THIS TIME. URINALS BEDSIDE. CALL LIGHT WITHIN REACH
[2018-08-15] MEDS ORDERED: CARVEDILOL 3.125 MG TABLET PO SCH (09:00)
[2018-08-15] MEDS: MULTIVITAMIN 1 TABLET PO SCH (09:05)
[2018-08-15] MEDS: DIGOXIN 0.125 MG TABLET PO SCH (09:06)
--- NOTE | 2018-08-15 09:26 | NUR ---
pt resting ON HOSP BED. NO ACUTE DISTRESS NOTED. NO NEEDS REQUESTED AT THIS TIME. VSS
--- NOTE | 2018-08-15 10:25 | NUR ---
PT RESTING ON HOSP BED WATCHING TV. NO ACUTE DISTRESS NOTED. NO NEEDS REQUESTED AT THIS TIME. PT GIVEN WATER AND APPLE JUICE.
--- NOTE | 2018-08-15 10:58 | NUR ---
BS REPORT FROM NOHEMY RODRIGUEZ.
--- NOTE | 2018-08-15 10:59 | NUR ---
BEDSIDE REPORT TO JENNIFER PINA.
--- NOTE | 2018-08-15 11:26 | NUR ---
ATTEMPT TO CALL REPORT X 1, RN NOT AVAILABLE-WILL CALL BACK.
--- NOTE | 2018-08-15 12:26 | NUR ---
REPORT TO ROLAND RODRIGUEZ, PT READY FOR TRANSPORT.
--- NOTE | 2018-08-15 12:43 | NUR ---
MEAL TRAY PROVIDED TO PT ON WAY TO FLOOR.
[2018-08-15 12:51] LABS: TROPONIN I 0.112 ng/mL (0.000-0.045)
[2018-08-15 13:05] VITALS: BP 118/92
[2018-08-15 17:45] VITALS: BP 133/88
[2018-08-15 19:18] VITALS: BP 116/72
[2018-08-15] MEDS: ATORVASTATIN 40 MG TABLET PO SCH (20:59)
[2018-08-15] MEDS: APIXABAN 5 MG TABLET PO SCH (20:59)
[2018-08-16 03:24] VITALS: BP 116/76
[2018-08-16 05:14] LABS: BASOPHILS # (AUTO) 0.02 x10^3/uL (0-0.1); BASOPHILS % (AUTO) 0 % (0-1); EOSINOPHILS # (AUTO) 0.08 x10^3/uL (0-0.4); EOSINOPHILS % (AUTO) 1 % (1-7); LYMPHOCYTES # (AUTO) 1.06 x10^3/uL (1-3.4); LYMPHOCYTES % (AUTO) 15 % (22-44); MD NO; MEAN CORPUSCULAR HEMOGLOBIN 32.5 pg (27.5-34.5); MEAN CORPUSCULAR HGB CONC 33.8 g/dL (33.2-36.2); MEAN CORPUSCULAR VOLUME 96.3 fL (81-97); MONOCYTES # (AUTO) 0.61 x10^3/uL (0.2-0.8); MONOCYTES % (AUTO) 9 % (2-9); NEUTROPHILS # (AUTO) 5.19 x10^3/uL (1.8-6.8); NEUTROPHILS % (AUTO) 75 % (42-75); PLATELET COUNT 199 x10^3/uL (130-400); RED BLOOD COUNT 4.25 x10^6/uL (4.38-5.82); RED CELL DISTRIBUTION WIDTH 15.5 % (9.4-14.8)
[2018-08-16 05:18] LABS: ALANINE AMINOTRANSFERASE 33 U/L (12-78); ALBUMIN 2.4 g/dL (3.4-5.0); ANION GAP 5 mmol/L (5-15); CALCIUM 8.1 mg/dL (8.5-10.1); CHLORIDE 108 mmol/L (98-107); CREATININE 1.01 mg/dL (0.7-1.3)
[2018-08-16 05:20] LABS: ALKALINE PHOSPHATASE 108 U/L (45-117); BILIRUBIN,TOTAL 0.8 mg/dL (0.2-1.0); TOTAL PROTEIN 4.8 g/dL (6.4-8.2)
[2018-08-16] MEDS: CARVEDILOL 6.25 MG TABLET PO SCH (06:29)
[2018-08-16] MEDS: NICOTINE 7 MG/24 HR PATCH.TD24 TD SCH (06:29)
[2018-08-16] MEDS: ASPIRIN 81 MG TABLET EC PO SCH (06:29)
[2018-08-16 09:08] VITALS: BP 109/81
[2018-08-16] MEDS: MAGNESIUM OXIDE 400 MG TABLET PO SCH ×2 (09:24→20:55)
[2018-08-16] MEDS: THIAMINE 100MG TABLET PO SCH ×2 (09:24→20:55)
[2018-08-16] MEDS: DIGOXIN 0.125 MG TABLET PO SCH (09:24)
[2018-08-16] MEDS: LISINOPRIL 5 MG TABLET PO SCH (09:24)
[2018-08-16] MEDS: MULTIVITAMIN 1 TABLET PO SCH (09:24)
[2018-08-16] MEDS: FUROSEMIDE 20 MG/2 ML IV SCH ×2 (09:25→17:52)
[2018-08-16] MEDS: APIXABAN 5 MG TABLET PO SCH ×2 (09:25→20:55)
[2018-08-16 15:04] VITALS: BP 90/65
[2018-08-16] MEDS: CARVEDILOL 3.125 MG TABLET PO SCH (17:52)
[2018-08-16 17:56] VITALS: BP 117/74
[2018-08-16 19:59] VITALS: BP 107/70
[2018-08-16] MEDS: ATORVASTATIN 40 MG TABLET PO SCH (20:55)
[2018-08-17 01:26] VITALS: BP 107/71
[2018-08-17 04:25] LABS: BASOPHILS # (AUTO) 0.03 x10^3/uL (0-0.1); BASOPHILS % (AUTO) 0 % (0-1); EOSINOPHILS # (AUTO) 0.08 x10^3/uL (0-0.4); EOSINOPHILS % (AUTO) 1 % (1-7); LYMPHOCYTES # (AUTO) 1.43 x10^3/uL (1-3.4); LYMPHOCYTES % (AUTO) 22 % (22-44); MD NO; MEAN CORPUSCULAR HEMOGLOBIN 31.9 pg (27.5-34.5); MEAN CORPUSCULAR HGB CONC 33.2 g/dL (33.2-36.2); MEAN CORPUSCULAR VOLUME 96.2 fL (81-97); MEAN PLATELET VOLUME 8.8 fL (7.4-10.4); MONOCYTES # (AUTO) 0.68 x10^3/uL (0.2-0.8); MONOCYTES % (AUTO) 11 % (2-9); NEUTROPHILS # (AUTO) 4.27 x10^3/uL (1.8-6.8); NEUTROPHILS % (AUTO) 66 % (42-75); PLATELET COUNT 206 x10^3/uL (130-400); RED BLOOD COUNT 4.63 x10^6/uL (4.38-5.82); RED CELL DISTRIBUTION WIDTH 15.6 % (9.4-14.8)
[2018-08-17 04:53] LABS: CHLORIDE 106 mmol/L (98-107)
[2018-08-17 05:01] LABS: ALANINE AMINOTRANSFERASE 28 U/L (12-78); ALBUMIN 2.5 g/dL (3.4-5.0); ALKALINE PHOSPHATASE 105 U/L (45-117); ANION GAP 5 mmol/L (5-15); BILIRUBIN,TOTAL 0.7 mg/dL (0.2-1.0); CALCIUM 8.1 mg/dL (8.5-10.1); CREATININE 0.95 mg/dL (0.7-1.3); TOTAL PROTEIN 5.2 g/dL (6.4-8.2)
[2018-08-17] MEDS: CARVEDILOL 3.125 MG TABLET PO SCH (06:24)
[2018-08-17] MEDS: ASPIRIN 81 MG TABLET EC PO SCH (06:24)
[2018-08-17] MEDS: NICOTINE 7 MG/24 HR PATCH.TD24 TD SCH (06:24)
[2018-08-17 08:12] VITALS: BP 106/85
[2018-08-17] MEDS: THIAMINE 100MG TABLET PO SCH (08:17)
[2018-08-17] MEDS: MULTIVITAMIN 1 TABLET PO SCH (08:17)
[2018-08-17] MEDS: DIGOXIN 0.125 MG TABLET PO SCH (08:17)
[2018-08-17] MEDS: MAGNESIUM OXIDE 400 MG TABLET PO SCH (08:17)
[2018-08-17] MEDS: APIXABAN 5 MG TABLET PO SCH (08:17)
[2018-08-17] MEDS: FUROSEMIDE 20 MG/2 ML IV SCH (08:18)
[2018-08-17] MEDS: LISINOPRIL 5 MG TABLET PO SCH (08:18)
== END 2018-08-17 10:50 | disposition home or self-care (01) | DRG 280 ==
LOC: ED 03:42 → EDIP 05:14 → 5SO 12:44
PROVIDERS: ADMIT Family Medicine; ATTEND Family Medicine
DX: I21.A1 Myocardial infarction type 2 (principal); I50.23 Acute on chronic systolic (congestive) heart failure; I42.9 Cardiomyopathy, unspecified; F10.10 Alcohol abuse, uncomplicated; F15.10 Other stimulant abuse, uncomplicated; F17.210 Nicotine dependence, cigarettes, uncomplicated; I11.0 Hypertensive heart disease with heart failure; I25.2 Old myocardial infarction; I48.91 Unspecified atrial fibrillation; I50.9 Heart failure, unspecified; J44.9 Chronic obstructive pulmonary disease, unspecified; Y92.89 Other specified places as the place of occurrence of the external cause; S05.12XA Contusion of eyeball and orbital tissues, left eye, initial encounter; X58.XXXA Exposure to other specified factors, initial encounter; Y93.89 Activity, other specified; Y99.8 Other external cause status; Z79.01 Long term (current) use of anticoagulants; Z79.899 Other long term (current) drug therapy; Z86.711 Personal history of pulmonary embolism; Z91.14 Patient's other noncompliance with medication regimen; T43.625A Adverse effect of amphetamines, initial encounter
CPT/HCPCS: 36415; 71045; 80053; 80162; 80307; 83735; 84484; 85025; 85610; 85730; 93005; 96365; 96366; 96375; G0378; J1940

== ENCOUNTER 2018-09-23 02:06 | Emergency (ER) | payer SELFPAY ==
[~2018-09-23] VITALS: Ht 182.9 cm; Wt 75.0 kg
--- NOTE | 2018-09-23 02:16 | NUR ---
BIB [facility] FOR ETOH WITH GENERALIZED ABDOMINAL PAIN. PT FALLS ASLEEP DURING ASSESSMENT. STATES "I HAVE BEEN DRINKING HEAVILY TODAY."
--- NOTE | 2018-09-23 03:27 | NUR ---
PT VOIDED PER URINAL. VSS. SLEEPING ON GURNEY.
--- NOTE | 2018-09-23 04:06 | NUR ---
PT SLEEPING. VSS.
--- NOTE | 2018-09-23 05:02 | NUR ---
PT SLEEPING. VSS. VOIDED PER URINAL. UPDATED ON POC.
[2018-09-23] MEDS ORDERED: CARVEDILOL 3.125 MG TABLET ONE (05:13)
--- NOTE | 2018-09-23 05:25 | NUR ---
PT MEDICATED PER EMAR. TOLERATED WELL, UPDATED ON POC.
[2018-09-23] MEDS ORDERED: CARVEDILOL 3.125 MG TABLET PO ONE (05:30)
[2018-09-23 06:03] VITALS: BP 126/78
--- NOTE | 2018-09-23 06:03 | NUR ---
Patient/Caregiver given discharge instructions and they have confirmed that they understand the instructions. Patient ambulatory with steady gait.
== END 2018-09-23 06:05 | disposition home or self-care (01) ==
LOC: ED 02:26
DX: F10.229 Alcohol dependence with intoxication, unspecified (principal); I48.2 Chronic atrial fibrillation; J44.9 Chronic obstructive pulmonary disease, unspecified; M54.9 Dorsalgia, unspecified; G89.29 Other chronic pain; I10 Essential (primary) hypertension; Z72.9 Problem related to lifestyle, unspecified; Z59.0 Homelessness
CPT/HCPCS: 99283

== ENCOUNTER 2018-10-19 02:42 | Inpatient (IN) | payer OTHER ==
[~2018-10-19] VITALS: Ht 182.9 cm; Wt 83.4 kg
--- NOTE | 2018-10-19 02:59 | NUR ---
[place] and he is "all messed up" Hx of a-fib and breathing problems. Kicked out of [facility]. pt c/o pain all over the body. all monitors in place. call light within reach. pt's pulse 150's and iregular at this time. pt's aox4. awaiting edmd orders.
[2018-10-19 03:49] LABS: MEAN CORPUSCULAR HEMOGLOBIN 32.9 pg (27.5-34.5); MEAN CORPUSCULAR HGB CONC 32.5 g/dL (33.2-36.2); PLATELET COUNT 214 x10^3/uL (130-400); RED BLOOD COUNT 4.01 x10^6/uL (4.38-5.82); RED CELL DISTRIBUTION WIDTH 16.3 % (9.4-14.8)
[2018-10-19 03:50] LABS: ALBUMIN 2.8 g/dL (3.4-5.0); ANION GAP 6 mmol/L (5-15); CALCIUM 8.1 mg/dL (8.5-10.1); CHLORIDE 107 mmol/L (98-107)
[2018-10-19 03:53] LABS: ALANINE AMINOTRANSFERASE 47 U/L (12-78); ALKALINE PHOSPHATASE 309 U/L (45-117); BILIRUBIN,TOTAL 1.6 mg/dL (0.2-1.0); CREATININE 0.81 mg/dL (0.7-1.3); TOTAL PROTEIN 6.6 g/dL (6.4-8.2)
[2018-10-19] MEDS ORDERED: DILTIAZEM 5 MG/ML, 5ML ONE (03:54)
[2018-10-19] MEDS ORDERED: DILTIAZEM 5 MG/ML, 5ML IVPush ONE (04:00)
[2018-10-19] MEDS ORDERED: SODIUM CHLORIDE 0.9% 1,000ML IVBOLUS ONE (04:00)
--- NOTE | 2018-10-19 04:00 | NUR ---
pt medicated per emar. pt tolerated well. ns infusing.
[2018-10-19 04:03] LABS: BASOPHILS # (AUTO) 0.03 x10^3/uL (0-0.1); BASOPHILS % (AUTO) 0 % (0-1); EOSINOPHILS % (AUTO) 0 % (1-7); LYMPHOCYTES # (AUTO) 0.86 x10^3/uL (1-3.4); LYMPHOCYTES % (AUTO) 7 % (22-44); MD SCAN; MONOCYTES # (AUTO) 0.54 x10^3/uL (0.2-0.8); MONOCYTES % (AUTO) 4 % (2-9); NEUTROPHILS # (AUTO) 10.88 x10^3/uL (1.8-6.8); NEUTROPHILS % (AUTO) 88 % (42-75)
[2018-10-19] MEDS ORDERED: CEFTRIAXONE PMX 1GM/50ML 50 ML ONE (04:27)
[2018-10-19] MEDS ORDERED: CEFTRIAXONE PMX 1GM/50ML 50 ML IV ONE (04:30)
--- NOTE | 2018-10-19 04:52 | NUR ---
report given to yeimy bose. all questions answered.
[2018-10-19] MEDS ORDERED: ACETAMINOPHEN 325 MG TABLET PO PRN (05:00)
[2018-10-19] MEDS ORDERED: VANCOMYCIN PER PHARMACY MC PRN (05:00)
[2018-10-19] MEDS ORDERED: LABETALOL 5MG/ML, 20ML IVPush PRN (05:00)
[2018-10-19] MEDS ORDERED: LORazepam 1MG TABLET PO PRN ×5 (05:00→08:00)
[2018-10-19] MEDS ORDERED: DILTIAZEM 125 MG in SODIUM CHLORIDE 0.9% 100 ML IV SCH (05:00)
[2018-10-19] MEDS ORDERED: HALOPERIDOL 5 MG/ML IVPush PRN (05:00)
[2018-10-19 05:05] VITALS: BP 150/84
[2018-10-19] MEDS ORDERED: POTASSIUM CHLORIDE 20 MEQ, MAGNESIUM SULFATE 1 GM, MVI ADULT 10 ML, THIAMINE 200 MG, FO... IV SCH (05:30)
[2018-10-19] MEDS ORDERED: PHARMACOKINETIC MONITORING MC PRN (05:30)
[2018-10-19] MEDS ORDERED: PHARMACOKINETIC CONSULTATION MC ONE (05:30)
[2018-10-19] MEDS: ENOXAPARIN 80 MG/0.8 ML SQ SCH ×2 (06:08→17:41)
[2018-10-19] MEDS: VANCOMYCIN 1,400 MG in SODIUM CHLORIDE 0.9% 250 ML IV SCH (06:40)
[2018-10-19 07:16] VITALS: BP 132/79
[2018-10-19] MEDS ORDERED: LORazepam 2 MG/ML, 1ML IV PRN ×5 (08:00)
[2018-10-19] MEDS ORDERED: CHLORDIAZEPOXIDE 25 MG CAPSULE PO PRN (08:00)
[2018-10-19 09:05] VITALS: BP 141/72
[2018-10-19] MEDS ORDERED: OMNIPAQUE 350 MG/ML, 100ML BOTTLE ONE (09:57)
[2018-10-19] MEDS: AMPICILLIN/SULBACTAM 3 GM in SODIUM CHLORIDE 0.9% 100 ML IV SCH ×3 (10:53→23:14)
[2018-10-19] MEDS: CLINDAMYCIN PMX 900MG/50ML 50 ML IV SCH ×2 (11:36→20:24)
[2018-10-19 11:59] LABS: INTERNATIONAL NORMALIZED RATIO 1.02 (0.93-1.1); PROTHROMBIN TIME 10.7 Seconds (9.6-11.5)
[2018-10-19 15:30] VITALS: BP 121/86
[2018-10-19] MEDS: DILTIAZEM 125 MG in SODIUM CHLORIDE 0.9% 100 ML IV SCH (18:02)
[2018-10-19 19:11] VITALS: BP 113/80
[2018-10-19 19:50] LABS: MICROSCOPIC NOT IND
[2018-10-19 19:55] LABS: CULTURE INDICATED? NO
[2018-10-19] MEDS: LORazepam 0.5MG TABLET PO PRN (20:48)
[2018-10-20] MEDS: VANCOMYCIN 1,400 MG in SODIUM CHLORIDE 0.9% 250 ML IV SCH ×2 (00:06→18:17)
[2018-10-20 03:22] VITALS: BP 116/78
[2018-10-20] MEDS: CLINDAMYCIN PMX 900MG/50ML 50 ML IV SCH ×3 (03:22→20:44)
[2018-10-20] MEDS: DILTIAZEM 125 MG in SODIUM CHLORIDE 0.9% 100 ML IV SCH ×3 (03:22→15:29)
[2018-10-20] MEDS ORDERED: DILTIAZEM 125 MG in SODIUM CHLORIDE 0.9% 100 ML IV SCH (05:00)
[2018-10-20] MEDS: ENOXAPARIN 80 MG/0.8 ML SQ SCH (05:00)
[2018-10-20 05:25] LABS: BASOPHILS # (AUTO) 0.02 x10^3/uL (0-0.1); BASOPHILS % (AUTO) 0 % (0-1); EOSINOPHILS # (AUTO) 0.06 x10^3/uL (0-0.4); EOSINOPHILS % (AUTO) 1 % (1-7); LYMPHOCYTES # (AUTO) 0.81 x10^3/uL (1-3.4); LYMPHOCYTES % (AUTO) 9 % (22-44); MD NO; MEAN CORPUSCULAR VOLUME 100.2 fL (81-97); MEAN PLATELET VOLUME 9.1 fL (7.4-10.4); MONOCYTES # (AUTO) 0.49 x10^3/uL (0.2-0.8); MONOCYTES % (AUTO) 5 % (2-9); NEUTROPHILS # (AUTO) 7.91 x10^3/uL (1.8-6.8); NEUTROPHILS % (AUTO) 85 % (42-75); PLATELET COUNT 171 x10^3/uL (130-400); RED BLOOD COUNT 3.82 x10^6/uL (4.38-5.82); RED CELL DISTRIBUTION WIDTH 16.1 % (9.4-14.8)
[2018-10-20] MEDS: AMPICILLIN/SULBACTAM 3 GM in SODIUM CHLORIDE 0.9% 100 ML IV SCH ×4 (05:25→22:55)
[2018-10-20 05:36] LABS: ANION GAP 6 mmol/L (5-15); CALCIUM 7.9 mg/dL (8.5-10.1); CHLORIDE 108 mmol/L (98-107)
[2018-10-20 05:39] LABS: ALANINE AMINOTRANSFERASE 27 U/L (12-78); ALKALINE PHOSPHATASE 190 U/L (45-117); BILIRUBIN,TOTAL 0.9 mg/dL (0.2-1.0); CREATININE 0.63 mg/dL (0.7-1.3); TOTAL PROTEIN 5.2 g/dL (6.4-8.2)
[2018-10-20 06:56] VITALS: BP 108/70
[2018-10-20 08:21] LABS: THYROID STIMULATING HORMONE 1.89 mIU/L (0.358-3.740)
[2018-10-20] MEDS: LORazepam 0.5MG TABLET PO PRN (09:29)
[2018-10-20 12:27] VITALS: BP 138/83
[2018-10-20] MEDS ORDERED: HEPARIN 5,000 UNITS/ML, 1ML IV ONE (12:30)
[2018-10-20] MEDS: HEPARIN 25,000 UNITS/500ML PMX 500 ML IV PRN (15:32)
[2018-10-20] MEDS: POTASSIUM CHLORIDE 20 MEQ, MAGNESIUM SULFATE 1 GM, MVI ADULT 10 ML, THIAMINE 200 MG, FO... IV SCH (15:45)
[2018-10-20 20:00] VITALS: BP 113/78
[2018-10-20] MEDS: HEPARIN 5,000 UNITS/ML, 1ML IV PRN (22:11)
[2018-10-21 00:26] VITALS: BP 107/72
[2018-10-21] MEDS: CLINDAMYCIN PMX 900MG/50ML 50 ML IV SCH ×3 (03:58→18:58)
[2018-10-21] MEDS: DILTIAZEM 125 MG in SODIUM CHLORIDE 0.9% 100 ML IV SCH (03:59)
[2018-10-21] MEDS: AMPICILLIN/SULBACTAM 3 GM in SODIUM CHLORIDE 0.9% 100 ML IV SCH ×4 (04:58→23:08)
[2018-10-21 06:49] VITALS: BP 126/80
[2018-10-21] MEDS ORDERED: MIDAZOLAM 1 MG/ML, 2ML ONE (08:46)
[2018-10-21] MEDS ORDERED: FENTANYL PF 250 MCG/5ML ONE (08:46)
[2018-10-21 08:52] LABS: ALANINE AMINOTRANSFERASE 26 U/L (12-78); ALBUMIN 2.2 g/dL (3.4-5.0); ANION GAP 6 mmol/L (5-15); CALCIUM 8.1 mg/dL (8.5-10.1); CHLORIDE 107 mmol/L (98-107); CREATININE 0.66 mg/dL (0.7-1.3)
[2018-10-21 08:54] LABS: ALKALINE PHOSPHATASE 172 U/L (45-117); BILIRUBIN,TOTAL 0.5 mg/dL (0.2-1.0); TOTAL PROTEIN 5.6 g/dL (6.4-8.2)
[2018-10-21 08:55] LABS: MEAN CORPUSCULAR HEMOGLOBIN 31.6 pg (27.5-34.5); MEAN CORPUSCULAR HGB CONC 32.2 g/dL (33.2-36.2); MEAN CORPUSCULAR VOLUME 98.4 fL (81-97); MEAN PLATELET VOLUME 8.6 fL (7.4-10.4); PLATELET COUNT 192 x10^3/uL (130-400); RED BLOOD COUNT 4.24 x10^6/uL (4.38-5.82); RED CELL DISTRIBUTION WIDTH 15.9 % (9.4-14.8)
[2018-10-21] MEDS ORDERED: PROPOFOL 10 MG/ML, 20ML ONE (09:14)
[2018-10-21 09:22] LABS: BASOPHILS # (AUTO) 0.01 x10^3/uL (0-0.1); BASOPHILS % (AUTO) 0 % (0-1); EOSINOPHILS # (AUTO) 0.04 x10^3/uL (0-0.4); EOSINOPHILS % (AUTO) 1 % (1-7); LYMPHOCYTES # (AUTO) 0.56 x10^3/uL (1-3.4); LYMPHOCYTES % (AUTO) 9 % (22-44); MD SCAN; MONOCYTES # (AUTO) 0.29 x10^3/uL (0.2-0.8); MONOCYTES % (AUTO) 5 % (2-9); NEUTROPHILS # (AUTO) 5.23 x10^3/uL (1.8-6.8); NEUTROPHILS % (AUTO) 85 % (42-75)
[2018-10-21] MEDS ORDERED: ALBUTEROL/IPRATROPIUM 2.5MG/0.5MG, 3 ML NPPB PRN (10:00)
[2018-10-21] MEDS ORDERED: OXYcodone 5 MG/5 ML ORAL.SOL UDC PO PRN (10:00)
[2018-10-21] MEDS ORDERED: HYDROmorphone 2 MG/ML, 1ML IVPush PRN (10:00)
[2018-10-21] MEDS ORDERED: MEPERIDINE/PF 25MG/0.5ML IVPush PRN (10:00)
[2018-10-21] MEDS ORDERED: hydrALAzine 20 MG/ML, 1ML IV PRN (10:00)
[2018-10-21] MEDS ORDERED: MIDAZOLAM 1 MG/ML, 2ML IV PRN (10:00)
[2018-10-21] MEDS ORDERED: FENTANYL PF 100 MCG/2ML IV PRN (10:00)
[2018-10-21] MEDS ORDERED: ACETAMINOPHEN 325 MG TABLET PO PRN (10:00)
[2018-10-21] MEDS ORDERED: HALOPERIDOL 5 MG/ML IV PRN (10:00)
[2018-10-21] MEDS ORDERED: PROMETHAZINE 25 MG/ML, 1ML IV PRN (10:00)
[2018-10-21] MEDS ORDERED: OXYcodone 5 MG/5 ML ORAL.SOL UDC ONE (10:07)
[2018-10-21] MEDS: DILTIAZEM 60 MG TABLET PO SCH ×3 (11:07→20:20)
[2018-10-21 13:20] VITALS: BP 119/73
[2018-10-21] MEDS: VANCOMYCIN 1,400 MG in SODIUM CHLORIDE 0.9% 250 ML IV SCH (13:46)
[2018-10-21] MEDS: POTASSIUM CHLORIDE 20 MEQ, MAGNESIUM SULFATE 1 GM, MVI ADULT 10 ML, THIAMINE 200 MG, FO... IV SCH (14:00)
[2018-10-21] MEDS ORDERED: FUROSEMIDE 20 MG/2 ML IV ONE (14:30)
[2018-10-21] MEDS: HEPARIN 5,000 UNITS/ML, 1ML IV PRN ×2 (18:07→23:56)
[2018-10-21] MEDS: HEPARIN 25,000 UNITS/500ML PMX 500 ML IV PRN (18:57)
[2018-10-21] MEDS: CARVEDILOL 3.125 MG TABLET PO SCH (18:59)
[2018-10-21 19:02] VITALS: BP 111/72
[2018-10-22 02:11] VITALS: BP 110/73
[2018-10-22] MEDS: CLINDAMYCIN PMX 900MG/50ML 50 ML IV SCH (03:25)
[2018-10-22] MEDS: AMPICILLIN/SULBACTAM 3 GM in SODIUM CHLORIDE 0.9% 100 ML IV SCH ×4 (04:40→23:04)
[2018-10-22 04:51] VITALS: BP 116/77
[2018-10-22] MEDS: DILTIAZEM 60 MG TABLET PO SCH ×4 (04:54→20:04)
[2018-10-22] MEDS: VANCOMYCIN 1,400 MG in SODIUM CHLORIDE 0.9% 250 ML IV SCH ×2 (05:39→23:43)
[2018-10-22 05:43] VITALS: BP 102/77
[2018-10-22 05:46] LABS: BASOPHILS # (AUTO) 0.01 x10^3/uL (0-0.1); BASOPHILS % (AUTO) 0 % (0-1); EOSINOPHILS # (AUTO) 0.09 x10^3/uL (0-0.4); EOSINOPHILS % (AUTO) 2 % (1-7); LYMPHOCYTES # (AUTO) 0.98 x10^3/uL (1-3.4); LYMPHOCYTES % (AUTO) 19 % (22-44); MD NO; MEAN CORPUSCULAR HEMOGLOBIN 32.1 pg (27.5-34.5); MEAN CORPUSCULAR HGB CONC 32.2 g/dL (33.2-36.2); MEAN CORPUSCULAR VOLUME 99.7 fL (81-97); MONOCYTES # (AUTO) 0.51 x10^3/uL (0.2-0.8); MONOCYTES % (AUTO) 10 % (2-9); NEUTROPHILS # (AUTO) 3.63 x10^3/uL (1.8-6.8); NEUTROPHILS % (AUTO) 70 % (42-75); PLATELET COUNT 199 x10^3/uL (130-400); RED BLOOD COUNT 4.13 x10^6/uL (4.38-5.82); RED CELL DISTRIBUTION WIDTH 15.8 % (9.4-14.8)
[2018-10-22] MEDS: CARVEDILOL 3.125 MG TABLET PO SCH ×2 (05:46→18:11)
[2018-10-22 06:13] LABS: ALBUMIN 1.8 g/dL (3.4-5.0); ANION GAP 3 mmol/L (5-15); CALCIUM 7.8 mg/dL (8.5-10.1); CHLORIDE 106 mmol/L (98-107)
[2018-10-22 06:17] LABS: ALANINE AMINOTRANSFERASE 17 U/L (12-78); ALKALINE PHOSPHATASE 136 U/L (45-117); BILIRUBIN,TOTAL 0.6 mg/dL (0.2-1.0); CREATININE 0.87 mg/dL (0.7-1.3)
[2018-10-22 07:12] VITALS: BP 108/62
[2018-10-22] MEDS: HEPARIN 5,000 UNITS/ML, 1ML IV PRN (07:55)
[2018-10-22] MEDS: THIAMINE 100MG TABLET PO SCH (07:58)
[2018-10-22] MEDS: FOLIC ACID 1 MG TABLET PO SCH (07:58)
[2018-10-22] MEDS: LISINOPRIL 5 MG TABLET PO SCH (07:58)
[2018-10-22] MEDS: SPIRONOLACTONE 25 MG TABLET PO SCH (07:59)
[2018-10-22] MEDS: APIXABAN 5 MG TABLET PO SCH ×2 (10:21→20:04)
[2018-10-22] MEDS: HYDROcodone/APAP 5/325 TABLET PO PRN ×2 (13:13→20:04)
[2018-10-22 14:37] VITALS: BP 119/82
[2018-10-22 19:38] VITALS: BP 115/75
[2018-10-23 01:06] VITALS: BP 114/76
[2018-10-23] MEDS: HYDROcodone/APAP 5/325 TABLET PO PRN ×2 (03:29→16:21)
[2018-10-23] MEDS: CARVEDILOL 3.125 MG TABLET PO SCH ×2 (05:12→18:24)
[2018-10-23] MEDS: DILTIAZEM 60 MG TABLET PO SCH ×4 (05:12→20:51)
[2018-10-23] MEDS: AMPICILLIN/SULBACTAM 3 GM in SODIUM CHLORIDE 0.9% 100 ML IV SCH ×4 (05:12→22:52)
[2018-10-23 07:34] VITALS: BP 126/89
[2018-10-23] MEDS: LISINOPRIL 5 MG TABLET PO SCH (07:48)
[2018-10-23] MEDS: APIXABAN 5 MG TABLET PO SCH ×2 (07:48→20:51)
[2018-10-23] MEDS: THIAMINE 100MG TABLET PO SCH (07:48)
[2018-10-23] MEDS: FOLIC ACID 1 MG TABLET PO SCH (07:48)
[2018-10-23] MEDS: SPIRONOLACTONE 25 MG TABLET PO SCH (07:48)
[2018-10-23 14:53] VITALS: BP 144/88
[2018-10-23 18:24] VITALS: BP 117/72
[2018-10-23] MEDS: VANCOMYCIN 1,400 MG in SODIUM CHLORIDE 0.9% 250 ML IV SCH (18:25)
[2018-10-23 20:48] VITALS: BP 108/76
[2018-10-24 03:44] VITALS: BP 147/79
[2018-10-24 05:38] VITALS: BP 131/91
[2018-10-24] MEDS: DILTIAZEM 60 MG TABLET PO SCH ×3 (05:39→15:51)
[2018-10-24] MEDS: CARVEDILOL 3.125 MG TABLET PO SCH (05:39)
[2018-10-24] MEDS: AMPICILLIN/SULBACTAM 3 GM in SODIUM CHLORIDE 0.9% 100 ML IV SCH ×2 (05:39→11:23)
[2018-10-24 06:49] VITALS: BP 130/90
[2018-10-24] MEDS: THIAMINE 100MG TABLET PO SCH (10:39)
[2018-10-24] MEDS: FOLIC ACID 1 MG TABLET PO SCH (10:39)
[2018-10-24] MEDS: SPIRONOLACTONE 25 MG TABLET PO SCH (10:40)
[2018-10-24] MEDS: LISINOPRIL 5 MG TABLET PO SCH (10:40)
[2018-10-24] MEDS: APIXABAN 5 MG TABLET PO SCH (10:40)
[2018-10-24] MEDS: HYDROcodone/APAP 5/325 TABLET PO PRN (11:23)
[2018-10-24 12:59] VITALS: BP 127/82
[2018-10-24] MEDS: VANCOMYCIN 1,400 MG in SODIUM CHLORIDE 0.9% 250 ML IV SCH (13:15)
[2018-10-24] MEDS ORDERED: FOLI-17 PO (14:21)
[2018-10-24] MEDS ORDERED: DILT240C PO (14:21)
[2018-10-24] MEDS ORDERED: CARV3.1212 PO (14:21)
[2018-10-24] MEDS ORDERED: THIA100T67 PO (14:21)
[2018-10-24] MEDS ORDERED: LISI5TAB7 PO (14:21)
[2018-10-24] MEDS ORDERED: SPIR25TA5 PO (14:21)
[2018-10-24] MEDS ORDERED: ATOR20TA37 PO (14:21)
[2018-10-24] MEDS ORDERED: APIX5TAB PO (14:23)
[2018-10-24] MEDS ORDERED: LINE600T37 PO (14:27)
== END 2018-10-24 18:21 | disposition home or self-care (01) | DRG 871 ==
LOC: ED 04:20 → EDIP 04:28 → 4EST 05:00 → 5SO 08:58
PROVIDERS: ADMIT Family Medicine; ATTEND Family Medicine
PROC: 0X9D0ZZ Drainage of Right Lower Arm, Open Approach (ICD-10-PCS; principal; 2018-10-21 09:15)
DX: A41.9 Sepsis, unspecified organism (principal); I50.23 Acute on chronic systolic (congestive) heart failure; D68.69 Other thrombophilia; E44.0 Moderate protein-calorie malnutrition; L03.113 Cellulitis of right upper limb; L02.413 Cutaneous abscess of right upper limb; I48.92 Unspecified atrial flutter; Z63.8 Other specified problems related to primary support group; I48.2 Chronic atrial fibrillation; F10.20 Alcohol dependence, uncomplicated; M19.90 Unspecified osteoarthritis, unspecified site; R74.0 Nonspecific elevation of levels of transaminase and lactic acid dehydrogenase [LDH]; E78.5 Hyperlipidemia, unspecified; F12.90 Cannabis use, unspecified, uncomplicated; F17.200 Nicotine dependence, unspecified, uncomplicated; I11.0 Hypertensive heart disease with heart failure; I25.2 Old myocardial infarction; J44.9 Chronic obstructive pulmonary disease, unspecified; Z59.0 Homelessness; Z79.01 Long term (current) use of anticoagulants; Z86.14 Personal history of Methicillin resistant Staphylococcus aureus infection; Z86.711 Personal history of pulmonary embolism; Z91.19 Patient's noncompliance with other medical treatment and regimen; Z68.24 Body mass index [BMI] 24.0-24.9, adult
CPT/HCPCS: 36415; 71045; 80053; 80162; 80202; 81003; 82550; 82607; 83605; 83735; 84100; 84145; 84443; 85025; 85520; 85610; 87040; 87070; 87075; 87077; 87186; 87205; 93005; 93931; 96361; 96374; 99285; C8929; G0378; J0295; J0696; J1644; J1650; J2250; J2704; J3010; J3370; J3411; J3475; J3480; Q9967; J1940; J7030; J7050

== ENCOUNTER 2019-07-08 18:34 | Emergency (ER) | payer OTHER ==
[~2019-07-08] VITALS: Ht 182.9 cm; Wt 78.8 kg
[~2019-07-08 18:34] MED LIST changes: -DIGO125T PO; +DIGO125T85 PO; +DIGO250T3 PO; +DILT240C81 PO; +FURO-93 PO; -GUAI200T3 PO; +GUAI200T37 PO; +LINE600T12 PO; +LISI-170 PO; +LISI2.5T PO; +METO50TA82 PO; +POTA20TA14 PO; +SPIR25TA5 PO
[2019-07-08 18:39] VITALS: BP 137/85
== END 2019-07-08 19:51 | disposition home or self-care (01) ==
LOC: ED 19:00
DX: R53.1 Weakness (principal); R53.83 Other fatigue; I11.0 Hypertensive heart disease with heart failure; I50.9 Heart failure, unspecified; J44.9 Chronic obstructive pulmonary disease, unspecified; I25.2 Old myocardial infarction; M19.90 Unspecified osteoarthritis, unspecified site; F17.200 Nicotine dependence, unspecified, uncomplicated
CPT/HCPCS: 99281

== ENCOUNTER 2019-07-16 18:03 | Emergency (ER) | payer OTHER ==
[~2019-07-16] VITALS: Ht 182.9 cm; Wt 75.7 kg
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
[2019-07-16 20:44] VITALS: BP 116/69
== END 2019-07-16 20:46 | disposition home or self-care (01) ==
LOC: ED 20:44
DX: J43.9 Emphysema, unspecified (principal); G89.29 Other chronic pain; I50.9 Heart failure, unspecified; I11.0 Hypertensive heart disease with heart failure; I25.2 Old myocardial infarction; I48.91 Unspecified atrial fibrillation; F17.200 Nicotine dependence, unspecified, uncomplicated; Z76.0 Encounter for issue of repeat prescription
CPT/HCPCS: 99281

== ENCOUNTER 2019-07-24 08:17 | Emergency (ER) | payer OTHER ==
[~2019-07-24] VITALS: Ht 182.9 cm; Wt 71.0 kg
--- NOTE | 2019-07-24 08:25 | NUR ---
PT STATES "I GOTTA LEAVE AND GO TO THE BATHROOM." PT DIRECTED TO BATHROOM.
[2019-07-24 08:30] VITALS: BP 112/65
--- NOTE | 2019-07-24 09:02 | NUR ---
FABRICATION DEPARTMENT SUPERVISOR: PT TO ROOM FROM LOBBY
[2019-07-24] MEDS ORDERED: NEOSPORIN OINT. PKT 1 PACKET ONE (10:07)
--- NOTE | 2019-07-24 10:33 | NUR ---
TASK RN: PT NOT IN ROOM FOR D/C INST. DR SINGH AWARE PT LEFT W/O RECEIVING ANTIBIOTIC RX.
== END 2019-07-24 10:47 | disposition home or self-care (01) ==
LOC: ED 09:09
DX: L89.90 Pressure ulcer of unspecified site, unspecified stage (principal); L08.9 Local infection of the skin and subcutaneous tissue, unspecified; G89.29 Other chronic pain; J43.9 Emphysema, unspecified; I11.0 Hypertensive heart disease with heart failure; I50.9 Heart failure, unspecified; I25.2 Old myocardial infarction; M19.90 Unspecified osteoarthritis, unspecified site; I48.91 Unspecified atrial fibrillation; Z87.891 Personal history of nicotine dependence
CPT/HCPCS: 99283

== ENCOUNTER 2019-07-30 05:17 | Emergency (ER) | payer OTHER ==
[~2019-07-30] VITALS: Ht 182.9 cm; Wt 72.0 kg
[2019-07-30] MEDS ORDERED: ONDANSETRON ODT 4 MG ONE (05:50)
--- NOTE | 2019-07-30 05:54 | NUR ---
Patient MONSE herrera from [facility] (half-way) c/o body aches and productive cough x2 weeks. Tonight patient c/o N/V. Patient states he has abd pain but it is unspecified. Patient also states he thinks he has bed bugs. Patient is in NAD. Respirations even and unlabored. Patient taken to shower for decon.
[2019-07-30] MEDS ORDERED: ONDANSETRON ODT 4 MG PO ONE (06:00)
[2019-07-30 06:45] LABS: ALANINE AMINOTRANSFERASE 22 U/L (12-78); ALBUMIN 3.2 g/dL (3.4-5.0); ANION GAP 6 mmol/L (5-15); CALCIUM 8.8 mg/dL (8.5-10.1); CHLORIDE 101 mmol/L (98-107)
[2019-07-30 06:47] LABS: ALKALINE PHOSPHATASE 116 U/L (45-117); BILIRUBIN,TOTAL 0.9 mg/dL (0.2-1.0); TOTAL PROTEIN 6.9 g/dL (6.4-8.2)
[2019-07-30 06:50] LABS: RAPID INFLUENZA A Negative (Negative); RAPID INFLUENZA B Negative (Negative)
--- NOTE | 2019-07-30 07:19 | NUR ---
ASSUMED CARE. LAB DRAWING BLOOD. PT IN NO DISTRESS.
[2019-07-30 07:31] LABS: BASOPHILS % (AUTO) 0 % (0-1); EOSINOPHILS # (AUTO) 0.04 x10^3/uL (0-0.4); EOSINOPHILS % (AUTO) 1 % (1-7); LYMPHOCYTES # (AUTO) 0.24 x10^3/uL (1-3.4); LYMPHOCYTES % (AUTO) 3 % (22-44); MD NO; MEAN CORPUSCULAR HEMOGLOBIN 32.9 pg (27.5-34.5); MEAN CORPUSCULAR HGB CONC 33.3 g/dL (33.2-36.2); MEAN PLATELET VOLUME 8.2 fL (7.4-10.4); MONOCYTES # (AUTO) 0.27 x10^3/uL (0.2-0.8); MONOCYTES % (AUTO) 3 % (2-9); NEUTROPHILS # (AUTO) 7.83 x10^3/uL (1.8-6.8); NEUTROPHILS % (AUTO) 94 % (42-75); PLATELET COUNT 207 x10^3/uL (130-400); RED BLOOD COUNT 4.57 x10^6/uL (4.38-5.82)
[2019-07-30 07:37] VITALS: BP 128/73
--- NOTE | 2019-07-30 07:38 | NUR ---
PT LYING ON SIDE, EVEN RESPIRATIONS.
--- NOTE | 2019-07-30 18:41 | NUR ---
ATTEMPTED TO CALL PATIENT TO NOTIFY PATIENT OF RECENT COVID LAB RESULTS. UNABLE TO REACH PATIENT BY NUMBER ON FILE.
== END 2019-07-30 08:57 | disposition home or self-care (01) ==
LOC: ED 06:10
DX: B34.9 Viral infection, unspecified (principal); Z20.828 Contact with and (suspected) exposure to other viral communicable diseases; R94.31 Abnormal electrocardiogram [ECG] [EKG]; I48.92 Unspecified atrial flutter; J44.9 Chronic obstructive pulmonary disease, unspecified; I11.0 Hypertensive heart disease with heart failure; I50.9 Heart failure, unspecified; I25.2 Old myocardial infarction
CPT/HCPCS: 36415; 71045; 80053; 85025; 87400; 93005; 99285; Q0162

== ENCOUNTER 2019-08-01 07:49 | Emergency (ER) | payer OTHER ==
[~2019-08-01] VITALS: Ht 182.9 cm; Wt 69.1 kg
--- NOTE | 2019-08-01 08:18 | NUR ---
ER PA WAS IN TO SEE PT. PT IS HOMELESS, CURRENTLY STAYING AT [facility] [place]. MULTIPLE OPEN ULCERS TO L WRIST/HAND.
[2019-08-01] MEDS ORDERED: CLINDAMYCIN 300 MG CAPSULE ONE (08:25)
[2019-08-01] MEDS ORDERED: CLINDAMYCIN 300 MG CAPSULE PO ONE (08:30)
--- NOTE | 2019-08-01 08:56 | NUR ---
PT AMBULATED TO BR WITHOUT DIFFICULTY.
[2019-08-01] MEDS ORDERED: MUPIROCIN OINT 2%, 1 GM APPL. TP ONE (09:00)
[2019-08-01] MEDS ORDERED: MUPIROCIN OINT 2%, 22GM TP ONE (09:00)
[2019-08-01 09:15] VITALS: BP 122/85
--- NOTE | 2019-08-01 09:15 | NUR ---
AFFECTED AREAS OF CELLULITIS (L WRIST, UPPER BACK, AND R SHOULDER) WASHED & DRIED BY PT IN SINK. BACITRACIN APPLIED TO ALL ULCERS AND BANDAGES APPLIED. PT MEDICATED PER ORDERS. D/C INSTRUCTIONS, MEDS & F/U APPT RV'WD WITH PT, HE VERBALIZES UNDERSTANDING. RX PROVIDED X1. CARE CHEST INFO PROVIDED TO PT FOR ASSISTANCE WITH RX. PHONE PROVIDED TO PT. PT AMBULATED OUT WITHOUT DIFFICULTY.
== END 2019-08-01 09:24 | disposition home or self-care (01) ==
LOC: ED 08:45
DX: L03.114 Cellulitis of left upper limb (principal); L73.9 Follicular disorder, unspecified; I48.92 Unspecified atrial flutter; J44.9 Chronic obstructive pulmonary disease, unspecified; I11.0 Hypertensive heart disease with heart failure; I50.9 Heart failure, unspecified; M19.90 Unspecified osteoarthritis, unspecified site; I25.2 Old myocardial infarction; I48.91 Unspecified atrial fibrillation; G89.29 Other chronic pain
CPT/HCPCS: 99283

== ENCOUNTER 2019-11-15 15:48 | Emergency (ER) | payer OTHER ==
[~2019-11-15 15:48] MED LIST changes: +MULT-449 PO; -MULT1TAB60 PO
== END 2019-11-15 17:10 ==
LOC: ED 17:00
DX: R68.89 Other general symptoms and signs (principal); Z53.21 Procedure and treatment not carried out due to patient leaving prior to being seen by health care provider

== ENCOUNTER 2019-11-24 05:25 | Emergency (ER) | payer OTHER ==
[~2019-11-24] VITALS: Ht 182.9 cm; Wt 70.0 kg
[2019-11-24 05:36] VITALS: BP 167/100
== END 2019-11-24 06:33 | disposition home or self-care (01) ==
LOC: ED 05:30
DX: B86 Scabies (principal); B85.1 Pediculosis due to Pediculus humanus corporis; J43.9 Emphysema, unspecified; I48.91 Unspecified atrial fibrillation; I25.2 Old myocardial infarction; I11.0 Hypertensive heart disease with heart failure; I50.9 Heart failure, unspecified; M19.90 Unspecified osteoarthritis, unspecified site; Z86.711 Personal history of pulmonary embolism
CPT/HCPCS: 99283

== ENCOUNTER 2020-02-09 04:21 | Inpatient (IN) | payer OTHER ==
[~2020-02-09] VITALS: Ht 182.9 cm; Wt 72.2 kg
[2020-02-09] MEDS ORDERED: DILTIAZEM 5 MG/ML, 5ML ONE ×2 (05:16→06:33)
[2020-02-09] MEDS ORDERED: LORazepam 2 MG/ML, 1ML ONE (05:16)
[2020-02-09] MEDS ORDERED: SODIUM CHLORIDE FLUSH 10ML SYR IVF ONE (05:30)
[2020-02-09] MEDS ORDERED: LORazepam 2 MG/ML, 1ML IVPush ONE (05:30)
[2020-02-09] MEDS ORDERED: DILTIAZEM 5 MG/ML, 5ML IVPush ONE (05:30)
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
[2020-02-09 05:43] LABS: BASOPHILS % (AUTO) 1 % (0-1); EOSINOPHILS % (AUTO) 0 % (1-7); LYMPHOCYTES % (AUTO) 20 % (22-44); MEAN CORPUSCULAR HEMOGLOBIN 32.4 pg (27.5-34.5); MEAN CORPUSCULAR HGB CONC 33.3 g/dL (33.2-36.2); MEAN PLATELET VOLUME 8.3 fL (7.4-10.4); MONOCYTES % (AUTO) 14 % (2-9); NEUTROPHILS % (AUTO) 65 % (42-75); PLATELET COUNT 178 x10^3/uL (130-400); RED BLOOD COUNT 3.54 x10^6/uL (4.38-5.82); RED CELL DISTRIBUTION WIDTH 15.7 % (9.4-14.8)
[2020-02-09 05:55] LABS: CHLORIDE 111 mmol/L (98-107)
[2020-02-09 05:58] LABS: MD NO
[2020-02-09 06:00] LABS: INTERNATIONAL NORMALIZED RATIO 1.01 (0.93-1.1); PROTHROMBIN TIME 10.4 Seconds (9.6-11.5)
--- NOTE | 2020-02-09 06:03 | NUR ---
Good effect noted from dilt. HR 90s, NSR. Remains on tele. Continues to deny chest pain
[2020-02-09 06:04] LABS: ALANINE AMINOTRANSFERASE 28 U/L (12-78); ALBUMIN 3.3 g/dL (3.4-5.0); ALKALINE PHOSPHATASE 94 U/L (45-117); ANION GAP 8 mmol/L (5-15); BILIRUBIN,TOTAL 1.3 mg/dL (0.2-1.0); CALCIUM 8.9 mg/dL (8.5-10.1); CREATININE 0.83 mg/dL (0.7-1.3); TOTAL PROTEIN 6.9 g/dL (6.4-8.2); TROPONIN I 0.026 ng/mL (0.000-0.045)
--- NOTE | 2020-02-09 06:39 | NUR ---
Rapid a-fib to 160s noted on monitor. Pt continues to deny pain. Provider aware. Additional 20 mg dilt administered, see eMAR for additional details. NSR 80s noted on monitor immediately after dilt bolus. BP stable, 122/80. Remains on tele
--- NOTE | 2020-02-09 06:49 | NUR ---
Pt resting comfortably on stretcher. Remains in NSR 80s on tele. Bed low, side rails up, call light within reach
[2020-02-09] MEDS ORDERED: DILTIAZEM 5 MG/ML, 5ML IV ONE (07:00)
[2020-02-09] MEDS ORDERED: ACETAMINOPHEN 325 MG TABLET PO PRN (07:00)
[2020-02-09] MEDS ORDERED: morphine SULFATE 10 MG/ML, 1ML IVPush PRN (07:00)
[2020-02-09] MEDS ORDERED: ENALAPRILAT 1.25 MG/ML, 2ML IVPush PRN (07:00)
--- NOTE | 2020-02-09 07:06 | NUR ---
Took report from Linette Ibarra RN, assume care at this time.
[2020-02-09] MEDS ORDERED: LORazepam 1MG TABLET PO PRN ×2 (07:30)
[2020-02-09] MEDS ORDERED: LORazepam 2 MG/ML, 1ML IV PRN ×5 (07:30)
[2020-02-09] MEDS ORDERED: ONDANSETRON 2MG/ML, 2ML IV PRN (07:30)
[2020-02-09] MEDS ORDERED: POTASSIUM CHLORIDE 20 MEQ, MVI ADULT 10 ML, FOLIC ACID 1 MG, MAGNESIUM SULFATE 2 GM in ... IV SCH ×2 (07:30→10:00)
[2020-02-09] MEDS ORDERED: DOCUSATE 100 MG CAPSULE PO PRN (07:30)
[2020-02-09] MEDS ORDERED: LORazepam 0.5MG TABLET PO PRN (07:30)
[2020-02-09] MEDS ORDERED: FUROSEMIDE 20 MG/2 ML IV ONE (09:00)
[2020-02-09] MEDS ORDERED: APIXABAN 5 MG TABLET PO SCH (09:00)
[2020-02-09] MEDS ORDERED: SODIUM CHLORIDE FLUSH 10ML SYR IVF PRN (09:00)
[2020-02-09] MEDS ORDERED: THIAMINE 200 MG in DEXTROSE 5% 50 ML IVPB ONE (10:00)
[2020-02-09] MEDS: ASPIRIN 81 MG TABLET EC PO SCH (10:31)
[2020-02-09] MEDS: DIGOXIN 0.25 MG TABLET PO SCH (10:32)
[2020-02-09] MEDS: SPIRONOLACTONE 25 MG TABLET PO SCH (10:32)
[2020-02-09] MEDS: LISINOPRIL 5 MG TABLET PO SCH (10:32)
[2020-02-09] MEDS: APIXABAN 5 MG TABLET PO SCH ×2 (10:32→22:10)
[2020-02-09] MEDS: METOPROLOL SUCCINATE 50 MG TAB.ER.24H PO SCH ×2 (10:32→22:10)
[2020-02-09] MEDS: FAMOTIDINE 20 MG TABLET PO SCH ×2 (10:33→22:10)
[2020-02-09 13:28] VITALS: BP 125/72
[2020-02-09] MEDS ORDERED: ATORVASTATIN 20 MG TABLET PO SCH (21:00)
[2020-02-09 21:55] VITALS: BP 121/88
[2020-02-10 02:11] VITALS: BP 118/76
[2020-02-10 06:52] LABS: BASOPHILS % (AUTO) 1 % (0-1); EOSINOPHILS % (AUTO) 2 % (1-7); LYMPHOCYTES % (AUTO) 24 % (22-44); MEAN CORPUSCULAR HEMOGLOBIN 32.5 pg (27.5-34.5); MEAN CORPUSCULAR HGB CONC 33.3 g/dL (33.2-36.2); MEAN PLATELET VOLUME 8.6 fL (7.4-10.4); MONOCYTES % (AUTO) 13 % (2-9); NEUTROPHILS % (AUTO) 59 % (42-75); PLATELET COUNT 160 x10^3/uL (130-400); RED BLOOD COUNT 3.93 x10^6/uL (4.38-5.82)
[2020-02-10 06:53] LABS: ALANINE AMINOTRANSFERASE 22 U/L (12-78); ALBUMIN 2.6 g/dL (3.4-5.0); CALCIUM 8.5 mg/dL (8.5-10.1); CREATININE 1.23 mg/dL (0.7-1.3)
[2020-02-10 06:55] LABS: ALKALINE PHOSPHATASE 90 U/L (45-117); BILIRUBIN,TOTAL 1.1 mg/dL (0.2-1.0); TOTAL PROTEIN 6.2 g/dL (6.4-8.2)
[2020-02-10 07:01] LABS: ANION GAP 5 mmol/L (5-15); CHLORIDE 111 mmol/L (98-107); MD NO
[2020-02-10 07:34] VITALS: BP 131/82
[2020-02-10] MEDS: ASPIRIN 81 MG TABLET EC PO SCH (09:19)
[2020-02-10] MEDS: DIGOXIN 0.25 MG TABLET PO SCH (09:19)
[2020-02-10] MEDS: APIXABAN 5 MG TABLET PO SCH (09:19)
[2020-02-10] MEDS: SPIRONOLACTONE 25 MG TABLET PO SCH (09:19)
[2020-02-10] MEDS: FAMOTIDINE 20 MG TABLET PO SCH (09:19)
[2020-02-10] MEDS: METOPROLOL SUCCINATE 50 MG TAB.ER.24H PO SCH (09:19)
[2020-02-10] MEDS: LISINOPRIL 5 MG TABLET PO SCH (09:20)
[2020-02-10] MEDS ORDERED: POTASSIUM CHLORIDE 20 MEQ, MVI ADULT 10 ML, FOLIC ACID 1 MG, MAGNESIUM SULFATE 2 GM in ... IV SCH (11:00)
== END 2020-02-10 10:10 | disposition home or self-care (01) | DRG 309 ==
LOC: SUATTDRO 06:58 → ED 07:02 → EDIP 07:05 → 5SO 09:34 → DCLOUNGE 02-10 09:57
PROVIDERS: ADMIT Hospitalist; ATTEND Hospitalist
DX: I48.20 Chronic atrial fibrillation, unspecified (principal); F10.239 Alcohol dependence with withdrawal, unspecified; I50.22 Chronic systolic (congestive) heart failure; I11.0 Hypertensive heart disease with heart failure; I25.2 Old myocardial infarction; J43.9 Emphysema, unspecified; Z59.0 Homelessness; Z63.8 Other specified problems related to primary support group; Z79.01 Long term (current) use of anticoagulants; Z91.14 Patient's other noncompliance with medication regimen; F15.10 Other stimulant abuse, uncomplicated; F17.200 Nicotine dependence, unspecified, uncomplicated
CPT/HCPCS: 36415; 71045; 80053; 80307; 82140; 83690; 83735; 83880; 84100; 84484; 85025; 85610; 93005; 96374; 96375; 96376; 99291; G0378; J3411; J3475; J3480; J1940; J2060

== ENCOUNTER 2020-02-13 05:49 | Emergency (ER) | payer SELFPAY ==
[~2020-02-13] VITALS: Ht 182.9 cm; Wt 70.9 kg
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
[2020-02-13 06:43] VITALS: BP 108/71
--- NOTE | 2020-02-13 06:44 | NUR ---
Patient given discharge instructions and they have confirmed that they understand the instructions. Patient ambulatory with steady gait. DENIES ADDITIONAL QUESTIONS OR NEEDS AT THIS TIME. MANN. PT COLLECTED ALL BELONINGS UPON DC.
== END 2020-02-13 06:46 | disposition home or self-care (01) ==
LOC: MERGE 06:28 → ED 06:28
DX: J44.9 Chronic obstructive pulmonary disease, unspecified (principal); I10 Essential (primary) hypertension; Z76.0 Encounter for issue of repeat prescription; Z87.891 Personal history of nicotine dependence
CPT/HCPCS: 99281

== ENCOUNTER 2020-02-21 06:06 | Emergency (ER) | payer MEDICARE, OTHER ==
[~2020-02-21] VITALS: Ht 182.9 cm; Wt 76.0 kg
[2020-02-21] MEDS ORDERED: METOPROLOL 1 MG/ML, 5ML ONE ×3 (06:20→09:20)
[2020-02-21] MEDS: METOPROLOL 1 MG/ML, 5ML IVPush PRN ×3 (06:23→06:59)
[2020-02-21] MEDS ORDERED: SODIUM CHLORIDE FLUSH 10ML SYR IVF ONE (06:30)
[2020-02-21 06:42] LABS: BASOPHILS % (AUTO) 1 % (0-1); EOSINOPHILS % (AUTO) 2 % (1-7); LYMPHOCYTES % (AUTO) 14 % (22-44); MEAN CORPUSCULAR HEMOGLOBIN 32.5 pg (27.5-34.5); MEAN CORPUSCULAR HGB CONC 32.9 g/dL (33.2-36.2); MEAN PLATELET VOLUME 7.9 fL (7.4-10.4); MONOCYTES % (AUTO) 6 % (2-9); NEUTROPHILS % (AUTO) 78 % (42-75); PLATELET COUNT 238 x10^3/uL (130-400); RED BLOOD COUNT 3.68 x10^6/uL (4.38-5.82); RED CELL DISTRIBUTION WIDTH 16.7 % (9.4-14.8)
[2020-02-21 06:46] LABS: MD NO
[2020-02-21] MEDS ORDERED: HYDR12.517 PO (06:47)
[2020-02-21] MEDS ORDERED: ALBU1.25 NEB (06:47)
--- NOTE | 2020-02-21 06:48 | NUR ---
BIB BY JODY WILLIAMSON CHEST NUMBNESS IN THE CENTER OF CHEST AND SOB THAT STARTED APPROX [id number]. PT HAS INCREASED WOB. PT STATES HOME MEDS WERE STOLEN AND HE HAS NOT TAKEN THEM IN "A WHILE". PT IS HOMELESS AND HANDS ARE BLACK WITH DIRT. PT CLEANED WITH SOAP AND WATER.
[2020-02-21 06:52] LABS: ANION GAP 6 mmol/L (5-15); CALCIUM 8.3 mg/dL (8.5-10.1); CHLORIDE 112 mmol/L (98-107)
[2020-02-21 06:58] LABS: ALANINE AMINOTRANSFERASE 22 U/L (12-78); ALKALINE PHOSPHATASE 104 U/L (45-117); BILIRUBIN,TOTAL 0.9 mg/dL (0.2-1.0); CREATININE 0.82 mg/dL (0.7-1.3); TOTAL PROTEIN 6.5 g/dL (6.4-8.2); TROPONIN I 0.023 ng/mL (0.000-0.045)
--- NOTE | 2020-02-21 07:00 | NUR ---
RECEIVED REPORT FROM JENNIFER TIDWELL. PT ASSISTED IN CLEANING HIMSELF DUE TO INCONTINENCE. PT RECEIVED 3RD DOSE OF LOPRESSOR. NO NOTABLE CHANGE IN VS. WILL CONTINUE TO MONITOR.
--- NOTE | 2020-02-21 07:07 | NUR ---
report given to negin bose and arielle bose
[2020-02-21] MEDS ORDERED: METOPROLOL TARTRATE 50 MG TAB PO ONE (07:30)
[2020-02-21] MEDS ORDERED: METOPROLOL TARTRATE 50 MG TAB ONE (07:35)
--- NOTE | 2020-02-21 08:15 | NUR ---
PT RESTING IN ED GURNEY, WATCHING TV. PT DENIES SOB AT THIS TIME.
[2020-02-21] MEDS ORDERED: METOPROLOL 1 MG/ML, 5ML IVPush ONE (09:30)
--- NOTE | 2020-02-21 09:31 | NUR ---
PT MEDICATED PER MAR
--- NOTE | 2020-02-21 09:32 | NUR ---
CONVERSATION WITH MD ABOUT PT AMBULATING AFTER NEXT DOSE OF LOPRESSOR TO SEE HOW HE DOES.
--- NOTE | 2020-02-21 09:49 | NUR ---
PT AMBULATED PER MD ORDER. PT AMBULATED WELL, BUT STATES HE WAS GETTING SHORT OF BREATH. PT PLACED ON MONITOR AND VSS. MD ADVISED OF AMBULATION OUTCOME.
[2020-02-21 10:16] VITALS: BP 147/105
--- NOTE | 2020-02-21 10:26 | NUR ---
PT REC'VD DISCHARGE INSTRUCTION AND EDUCATION. PT STATES NO QUESTIONS. PT AMBULATED TO LOBBY, STEADY GAIT. NO SOB EXPRESSED DURING AMBULATION. TAXI CAB ARRANGED FOR PT.
== END 2020-02-21 10:32 | disposition home or self-care (01) ==
LOC: ED 07:41
DX: I48.0 Paroxysmal atrial fibrillation (principal); I49.3 Ventricular premature depolarization; J44.9 Chronic obstructive pulmonary disease, unspecified; I11.0 Hypertensive heart disease with heart failure; I50.9 Heart failure, unspecified; I25.2 Old myocardial infarction; F17.200 Nicotine dependence, unspecified, uncomplicated; Z72.9 Problem related to lifestyle, unspecified; Z86.711 Personal history of pulmonary embolism
CPT/HCPCS: 36415; 71045; 80053; 80162; 84484; 85025; 93005; 96374; 96376; 99285; 99291

== ENCOUNTER 2020-05-14 07:58 | Emergency (ER) | payer OTHER ==
[~2020-05-14] VITALS: Ht 182.9 cm; Wt 78.0 kg
[~2020-05-14 07:58] MED LIST changes: +ALBU1.25 NEB; +HYDR12.517 PO
[2020-05-14 08:00] VITALS: BP 95/61
[2020-05-14] MEDS ORDERED: MUPIROCIN OINT 2%, 22GM TP ONE (08:30)
== END 2020-05-14 09:31 | disposition home or self-care (01) ==
LOC: ED 08:45
DX: L03.113 Cellulitis of right upper limb (principal); L03.114 Cellulitis of left upper limb
CPT/HCPCS: 99283

== ENCOUNTER 2020-05-15 03:44 | Emergency (ER) | payer OTHER ==
[~2020-05-15] VITALS: Ht 182.9 cm; Wt 78.2 kg
[2020-05-15 03:46] VITALS: BP 150/98
== END 2020-05-15 04:43 ==
LOC: ED 04:15
DX: I11.0 Hypertensive heart disease with heart failure (principal); I50.9 Heart failure, unspecified; F10.10 Alcohol abuse, uncomplicated; Z76.0 Encounter for issue of repeat prescription; Z72.9 Problem related to lifestyle, unspecified; I48.92 Unspecified atrial flutter; I25.2 Old myocardial infarction; J43.9 Emphysema, unspecified; G89.29 Other chronic pain; M19.90 Unspecified osteoarthritis, unspecified site; F17.200 Nicotine dependence, unspecified, uncomplicated; Y90.0 Blood alcohol level of less than 20 mg/100 ml
CPT/HCPCS: 99281

== ENCOUNTER 2020-05-16 23:20 | Emergency (ER) | payer OTHER ==
[~2020-05-16] VITALS: Ht 172.7 cm; Wt 79.0 kg
[2020-05-17] MEDS ORDERED: SODIUM CHLORIDE 0.9% 1,000ML IVBOLUS ONE
[2020-05-17] MEDS ORDERED: DILTIAZEM 5 MG/ML, 5ML IVPush ONE
--- NOTE | 2020-05-17 00:10 | NUR ---
SPOKE WITH MD LAI REGARDING COMPAZINE, PATIENT'S HR WITHIN LIMITS. WILL HOLD MEDICATION AT THIS TIME.
--- NOTE | 2020-05-17 00:45 | NUR ---
PATIENT RESTING IN BED, NO NOTED NEEDS AT THIS TIME. WILL CONTINUE TO MONITOR.
[2020-05-17 00:47] LABS: BASOPHILS % (AUTO) 0 % (0-1); EOSINOPHILS % (AUTO) 1 % (1-7); LYMPHOCYTES % (AUTO) 18 % (22-44); MEAN CORPUSCULAR HEMOGLOBIN 32.4 pg (27.5-34.5); MEAN CORPUSCULAR HGB CONC 33.9 g/dL (33.2-36.2); MEAN PLATELET VOLUME 8.2 fL (7.4-10.4); MONOCYTES % (AUTO) 4 % (2-9); NEUTROPHILS % (AUTO) 77 % (42-75); PLATELET COUNT 251 x10^3/uL (130-400); RED BLOOD COUNT 4.06 x10^6/uL (4.38-5.82); RED CELL DISTRIBUTION WIDTH 16.9 % (9.4-14.8)
[2020-05-17 00:51] LABS: MD NO
[2020-05-17 00:54] LABS: ALANINE AMINOTRANSFERASE 26 U/L (12-78); ALBUMIN 3.5 g/dL (3.4-5.0); ANION GAP 8 mmol/L (5-15); CALCIUM 8.6 mg/dL (8.5-10.1); CHLORIDE 105 mmol/L (98-107); CREATININE 1.69 mg/dL (0.7-1.3)
[2020-05-17 00:56] LABS: ALKALINE PHOSPHATASE 115 U/L (45-117); BILIRUBIN,TOTAL 0.5 mg/dL (0.2-1.0); TOTAL PROTEIN 7.1 g/dL (6.4-8.2)
--- NOTE | 2020-05-17 01:19 | NUR ---
PATIENT RESTING IN BED, NO NOTED NEEDS AT THIS TIME. WILL CONTINUE TO MONITOR.
[2020-05-17] MEDS ORDERED: DILTIAZEM 5 MG/ML, 5ML ONE (01:30)
[2020-05-17 02:19] VITALS: BP 95/48
--- NOTE | 2020-05-17 02:20 | NUR ---
PATIENT REPORT GIVEN TO JENNIFER BURROWS
--- NOTE | 2020-05-17 03:31 | NUR ---
PT REQUESTING TAXI VOUCHER TO [place] SO HE CAN GET HIS MEDICATIONS REFILLED BECAUSE THEY WERE STOLEN. PT AMBULATORY TO THE DISCHARGE DESK WITH A STEADY GAIT. TAXI VOUCHER PROVIDED.
== END 2020-05-17 03:34 | disposition home or self-care (01) ==
LOC: ED 23:47
DX: F10.120 Alcohol abuse with intoxication, uncomplicated (principal); I25.2 Old myocardial infarction; I11.0 Hypertensive heart disease with heart failure; I50.9 Heart failure, unspecified; I48.20 Chronic atrial fibrillation, unspecified; Z72.9 Problem related to lifestyle, unspecified; F17.200 Nicotine dependence, unspecified, uncomplicated; Y90.0 Blood alcohol level of less than 20 mg/100 ml
CPT/HCPCS: 36415; 80053; 80320; 85025; 93005; 96361; 96374; 99285; J7030; G0480

== ENCOUNTER 2020-06-25 00:54 | Emergency (ER) | payer OTHER ==
[~2020-06-25] VITALS: Ht 182.9 cm; Wt 80.0 kg
[~2020-06-25 00:54] MED LIST changes: -FOLI-17 PO; +FOLI1TAB32 PO
--- NOTE | 2020-06-25 00:59 | NUR ---
INITIAL PT CONTACT. PT TO ED VIA EMS C/O ETOH INTOXICATION. HX OF SAME. PT "KICKED OUT OF [facility] TODAY, I WAS BEING LOUD, I'M SORRY". PT MOVED FROM [facility] TO [facility], S[place] [place]. SHANNON DOE. CALL LIGHT AND BELONGINGS WITHIN REACH. WILL CONTINUE TO MONITOR. AWAITING ERP
--- NOTE | 2020-06-25 02:00 | NUR ---
PT SUPINE ON GURNEY, PROVIDED URINAL. PT DENIES ANY NEEDS AT THIS TIME. CALL LIGHT AND BELONGINGS WITHIN REACH.
--- NOTE | 2020-06-25 03:02 | NUR ---
PT SUPINE ON GURNEY, RESTING COMFORTABLY WIH EYES CLOSED. PT DENIES ANY NEEDS AT THIS TIME. CALL LIGHT IN REACH. PT UNABLE TO AMBULATE WITH STEADY GAIT AT THIS TIME.
--- NOTE | 2020-06-25 06:03 | NUR ---
PT SUPINE ON GURNEY, SLEEPING. NADN. NO NEEDS AT THIS TIME.
--- NOTE | 2020-06-25 06:38 | NUR ---
ATTEMPT TO AMBULATE PT FOR D/C. PT UNABLE TO AMBULATE WITH STEADY GAIT AT THIS TIME. PT RETURNED TO [facility], SITTING UPRIGHT, NADN, VSS. PIV REMOVED. PT PROVIDED URINAL. PT DENIES ANY ADDITIONAL NEEDS AT THIS TIME.
--- NOTE | 2020-06-25 06:52 | NUR ---
ASSUMED CARE OF PT. REPORT RECEIVED FROM JAKOB RODRIGUEZ. PT RESTING ON KAROLINE. BROOK. WILL CONTINUE TO MONITOR
--- NOTE | 2020-06-25 06:53 | NUR ---
BEDSIDE REPORT TO STONE RODRIGUEZ
--- NOTE | 2020-06-25 09:22 | NUR ---
PT AMBULATED TO DISCHARGE W/STEADY GAIT. CAB VOUCHER SUPPLIED. PT ENCOURAGED TO FOLLOWUP DISCUSSED. PT EDUCATED TO RETURN TO THE ED W/NEW OR WOSENING SYMPTOMS.
[2020-06-25 09:35] VITALS: BP 97/67
== END 2020-06-25 09:37 | disposition home or self-care (01) ==
LOC: ED 01:24
DX: F10.220 Alcohol dependence with intoxication, uncomplicated (principal); Z72.9 Problem related to lifestyle, unspecified; G31.2 Degeneration of nervous system due to alcohol; I48.92 Unspecified atrial flutter; G89.29 Other chronic pain; I11.0 Hypertensive heart disease with heart failure; I50.9 Heart failure, unspecified; J43.9 Emphysema, unspecified; I48.91 Unspecified atrial fibrillation; I25.2 Old myocardial infarction; F17.210 Nicotine dependence, cigarettes, uncomplicated; Y90.0 Blood alcohol level of less than 20 mg/100 ml
CPT/HCPCS: 99285

== ENCOUNTER 2020-11-28 05:05 | Inpatient (IN) | payer OTHER ==
[~2020-11-28] VITALS: Ht 177.8 cm; Wt 77.7 kg
[~2020-11-28 05:05] MED LIST changes: +MULT-482 PO; -MULT-750 PO
--- NOTE | 2020-11-28 05:17 | NUR ---
PATIENT BROUGHT TO SHOWER TO BATH. PATIENT AMBULATORY WITHOUT ASSISTANCE
[2020-11-28] MEDS ORDERED: SODIUM CHLORIDE FLUSH 10ML SYR IVF ONE (06:00)
[2020-11-28] MEDS ORDERED: DILTIAZEM 5 MG/ML, 5ML IVPush ONE (06:00)
[2020-11-28] MEDS ORDERED: SODIUM CHLORIDE 0.9% 1,000ML IVBOLUS ONE (06:00)
--- NOTE | 2020-11-28 06:21 | NUR ---
DR. CAMPOS SAID TO NOT GIVE FLUID BOLUS DUE TO PATIENTS CHEST X-RAY RESULTS AND TO GO AHEAD AND GIVE CARDIZEM THAT WAS ORDERED
[2020-11-28 06:27] LABS: BASOPHILS % (AUTO) 1 % (0-1); EOSINOPHILS % (AUTO) 1 % (1-7); LYMPHOCYTES % (AUTO) 23 % (22-44); MEAN CORPUSCULAR HEMOGLOBIN 32.5 pg (27.5-34.5); MEAN CORPUSCULAR HGB CONC 33.6 g/dL (33.2-36.2); MEAN PLATELET VOLUME 9.8 fL (7.4-10.4); MONOCYTES % (AUTO) 9 % (2-9); NEUTROPHILS % (AUTO) 66 % (42-75); PLATELET COUNT 118 x10^3/uL (130-400); RED BLOOD COUNT 3.99 x10^6/uL (4.38-5.82)
[2020-11-28 06:32] LABS: ALANINE AMINOTRANSFERASE 40 U/L (12-78); ALBUMIN 3.1 g/dL (3.4-5.0); ANION GAP 8 mmol/L (5-15); CALCIUM 8.3 mg/dL (8.5-10.1); CHLORIDE 111 mmol/L (98-107); CREATININE 0.74 mg/dL (0.7-1.3)
[2020-11-28 06:37] LABS: ALKALINE PHOSPHATASE 116 U/L (45-117); BILIRUBIN,TOTAL 1.4 mg/dL (0.2-1.0); TOTAL PROTEIN 6.6 g/dL (6.4-8.2)
--- NOTE | 2020-11-28 07:00 | NUR ---
REPORT FROM JENNIFER NICHOLSON. PT RESTING IN [facility], MONITORING IN PLACE, NADN AT THIS TIME, GONZALEZ.
[2020-11-28] MEDS ORDERED: FUROSEMIDE 40 MG/4 ML IV ONE ×2 (08:00→11:38)
[2020-11-28 08:58] VITALS: BP 144/94
[2020-11-28] MEDS ORDERED: METOPROLOL 1 MG/ML, 5ML IVPush ONE (10:00)
[2020-11-28] MEDS ORDERED: METOPROLOL TARTRATE 50 MG TAB PO ONE (10:30)
[2020-11-28] MEDS ORDERED: ONDANSETRON ODT 4 MG PO PRN (12:00)
[2020-11-28] MEDS ORDERED: ONDANSETRON 2MG/ML, 2ML IVPush PRN (12:00)
[2020-11-28] MEDS ORDERED: ACETAMINOPHEN 325 MG TABLET PO PRN (12:00)
[2020-11-28 14:53] VITALS: BP 147/91
[2020-11-28] MEDS: FUROSEMIDE 40 MG/4 ML IV SCH (17:05)
[2020-11-28] MEDS ORDERED: LORazepam 2 MG/ML, 1ML IV PRN ×5 (18:00)
[2020-11-28] MEDS ORDERED: LORazepam 0.5MG TABLET PO PRN (18:00)
[2020-11-28] MEDS ORDERED: LORazepam 1MG TABLET PO PRN ×4 (18:00)
[2020-11-28] MEDS ORDERED: THIAMINE 200 MG in DEXTROSE 5% 50 ML IVPB ONE (18:00)
[2020-11-28] MEDS ORDERED: FOLIC ACID 5 MG/ML IM ONE (18:00)
[2020-11-28] MEDS: ENOXAPARIN 80 MG/0.8 ML SQ SCH (18:17)
[2020-11-28] MEDS ORDERED: ALBUTEROL SULFATE 2.5 MG/3 ML NPPB PRN (18:30)
[2020-11-28 19:21] VITALS: BP 130/87
[2020-11-28] MEDS ORDERED: FOLIC ACID 1 MG TABLET PO ONE (22:00)
[2020-11-28] MEDS: BACLOFEN 10 MG TABLET PO SCH (22:03)
[2020-11-28] MEDS: METOPROLOL SUCCINATE 50 MG TAB.ER.24H PO SCH (22:03)
[2020-11-29] VITALS (7 sets, daily range): BP systolic 115–148; BP diastolic 84–105
[2020-11-29 05:47] LABS: BASOPHILS % (AUTO) 0 % (0-1); EOSINOPHILS % (AUTO) 1 % (1-7); LYMPHOCYTES % (AUTO) 17 % (22-44); MEAN CORPUSCULAR HEMOGLOBIN 32.3 pg (27.5-34.5); MEAN CORPUSCULAR HGB CONC 33.7 g/dL (33.2-36.2); MEAN PLATELET VOLUME 10.1 fL (7.4-10.4); MONOCYTES % (AUTO) 9 % (2-9); NEUTROPHILS % (AUTO) 73 % (42-75); PLATELET COUNT 99 x10^3/uL (130-400); RED BLOOD COUNT 4.18 x10^6/uL (4.38-5.82); RED CELL DISTRIBUTION WIDTH 15.6 % (9.4-14.8)
[2020-11-29 05:52] LABS: INTERNATIONAL NORMALIZED RATIO 1.14 (0.93-1.1); PROTHROMBIN TIME 12.1 Seconds (9.6-11.5)
[2020-11-29 05:53] LABS: ANION GAP 7 mmol/L (5-15); CALCIUM 8.2 mg/dL (8.5-10.1); CHLORIDE 104 mmol/L (98-107); CREATININE 1.02 mg/dL (0.7-1.3)
[2020-11-29] MEDS: ENOXAPARIN 80 MG/0.8 ML SQ SCH (05:53)
[2020-11-29] MEDS ORDERED: MAGNESIUM SULFATE PMX 2GM/50ML 50 ML IV ONE (06:30)
[2020-11-29] MEDS: POTASSIUM CHLORIDE 20 MEQ TAB.ER.PRT PO ONE ×2 (06:30→06:44)
[2020-11-29] MEDS: FUROSEMIDE 40 MG/4 ML IV SCH ×2 (08:27→17:44)
[2020-11-29] MEDS: BACLOFEN 10 MG TABLET PO SCH ×2 (08:27→22:22)
[2020-11-29] MEDS: METOPROLOL SUCCINATE 50 MG TAB.ER.24H PO SCH ×2 (08:28→22:23)
[2020-11-29 09:03] LABS: MICROSCOPIC NOT IND
[2020-11-29] MEDS ORDERED: POTASSIUM CHLORIDE 20 MEQ TAB.ER.PRT PO ONE (12:00)
[2020-11-29] MEDS ORDERED: ATORVASTATIN 20 MG TABLET PO SCH (21:00)
[2020-11-29] MEDS: APIXABAN 5 MG TABLET PO SCH (22:23)
[2020-11-30 00:40] VITALS: BP 120/86
[2020-11-30 06:46] LABS: BASOPHILS % (AUTO) 0 % (0-1); EOSINOPHILS % (AUTO) 1 % (1-7); LYMPHOCYTES % (AUTO) 23 % (22-44); MEAN CORPUSCULAR HEMOGLOBIN 31.9 pg (27.5-34.5); MEAN CORPUSCULAR HGB CONC 33.1 g/dL (33.2-36.2); MEAN PLATELET VOLUME 9.8 fL (7.4-10.4); MONOCYTES % (AUTO) 10 % (2-9); NEUTROPHILS % (AUTO) 65 % (42-75); PLATELET COUNT 112 x10^3/uL (130-400); RED BLOOD COUNT 4.22 x10^6/uL (4.38-5.82); RED CELL DISTRIBUTION WIDTH 15.1 % (9.4-14.8)
[2020-11-30 06:53] LABS: ANION GAP 6 mmol/L (5-15); CALCIUM 8.4 mg/dL (8.5-10.1); CHLORIDE 103 mmol/L (98-107)
[2020-11-30] MEDS ORDERED: POTASSIUM CHLORIDE 20 MEQ TAB.ER.PRT PO ONE (07:00)
[2020-11-30 07:16] VITALS: BP 128/95
[2020-11-30] MEDS ORDERED: HYDROCHLOROTHIAZIDE 12.5 MG CAPSULE PO SCH (09:00)
[2020-11-30] MEDS ORDERED: DIGOXIN 0.25 MG/ML, 2ML IVPush ONE (09:00)
[2020-11-30] MEDS ORDERED: SPIRONOLACTONE 25 MG TABLET PO SCH (09:00)
[2020-11-30] MEDS ORDERED: LISINOPRIL 5 MG TABLET PO SCH (09:00)
[2020-11-30] MEDS ORDERED: DIGOXIN 0.25 MG TABLET PO SCH (09:00)
[2020-11-30] MEDS ORDERED: POTASSIUM CHLORIDE 20 MEQ TAB.ER.PRT PO SCH (09:00)
[2020-11-30] MEDS ORDERED: FUROSEMIDE 20 MG TABLET PO SCH (09:00)
[2020-11-30] MEDS ORDERED: THIAMINE 100 MG in DEXTROSE 5% 50 ML IVPB SCH (09:00)
[2020-11-30] MEDS ORDERED: ASPIRIN 81 MG TABLET EC PO SCH (09:00)
[2020-11-30] MEDS ORDERED: DIGOXIN 0.125 MG TABLET ONE (10:09)
[2020-11-30] MEDS: APIXABAN 5 MG TABLET PO SCH (10:13)
[2020-11-30] MEDS: BACLOFEN 10 MG TABLET PO SCH (10:16)
[2020-11-30] MEDS: METOPROLOL SUCCINATE 50 MG TAB.ER.24H PO SCH (10:16)
[2020-11-30 12:35] VITALS: BP 131/91
== END 2020-11-30 15:40 | disposition home or self-care (01) | DRG 291 ==
LOC: SUATTDRO 07:44 → ED 08:08 → 4EST 08:09
PROVIDERS: ADMIT Internal Medicine; ATTEND Family Medicine
DX: I11.0 Hypertensive heart disease with heart failure (principal); J96.01 Acute respiratory failure with hypoxia; I48.20 Chronic atrial fibrillation, unspecified; F10.129 Alcohol abuse with intoxication, unspecified; Z79.01 Long term (current) use of anticoagulants; I50.23 Acute on chronic systolic (congestive) heart failure; I42.9 Cardiomyopathy, unspecified; I48.0 Paroxysmal atrial fibrillation; I70.0 Atherosclerosis of aorta; J44.9 Chronic obstructive pulmonary disease, unspecified; Z63.8 Other specified problems related to primary support group; Z66 Do not resuscitate; F12.90 Cannabis use, unspecified, uncomplicated; F17.200 Nicotine dependence, unspecified, uncomplicated; Z86.711 Personal history of pulmonary embolism
CPT/HCPCS: 36415; 71045; 80048; 80053; 80320; 81003; 83735; 83880; 84443; 85025; 85610; 93005; 93306; 96374; 96375; G0378; J1650; J1940; J3411; G0480; J1160; J2060; J3475

== ENCOUNTER 2021-01-24 07:35 | Emergency (ER) | payer OTHER ==
[~2021-01-24] VITALS: Ht 165.1 cm; Wt 80.0 kg
[~2021-01-24 07:35] MED LIST changes: +DOXY50CA2 PO; -DOXY50CA42 PO; -LISI2.5T PO; +LISI2.5T12 PO; +POTA-143 PO; -POTA20TA6 PO
[2021-01-24 07:40] VITALS: BP 130/82
[2021-01-24] MEDS ORDERED: BACITRACIN ZINC OINT 500U/GM, 0.9 GM ONE (08:42)
--- NOTE | 2021-01-24 10:26 | NUR ---
PATIENT AOX4 VSS. PATIENT ABLE TO AMBULATE WITH STEADY WITH GAIT. PROVIDED PATIENT WITH SHOWER AND CLEAN CLOTHES
== END 2021-01-24 10:30 | disposition home or self-care (01) ==
LOC: ED 07:39
DX: F10.220 Alcohol dependence with intoxication, uncomplicated (principal); I48.92 Unspecified atrial flutter; I25.2 Old myocardial infarction; I48.91 Unspecified atrial fibrillation; I50.9 Heart failure, unspecified; J43.9 Emphysema, unspecified; Y90.0 Blood alcohol level of less than 20 mg/100 ml
CPT/HCPCS: 99283